=== PATIENT | female | born 1965 | race Caucasian/White ===

== ENCOUNTER 2021-05-23 14:29 | Emergency (ER) | payer OTHER, SELFPAY ==
[2021-05-23 14:30] VITALS: BP 145/87; PULSE 106; RESP 18; TEMP 36.4; O2SAT 98; BMI 27.9
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
== END 2021-05-23 16:00 | disposition home or self-care (01) ==
PROVIDERS: Emergency Provider Emergency Medicine; PCP Family Medicine; Visit Provider Emergency Medicine
DX: Z04.1 Encounter for examination and observation following transport accident (principal); H53.8 Other visual disturbances; Z87.891 Personal history of nicotine dependence; E78.5 Hyperlipidemia, unspecified; V53.5XXD Driver of pick-up truck or van injured in collision with car, pick-up truck or van in traffic accident, subsequent encounter
CPT/HCPCS: 99283

== ENCOUNTER → 2022-10-04 | Outpatient (CLI) | payer OTHER, SELFPAY ==
[2022-10-04 16:07] LABS: Bacteria 0 SEEN /hpf (None Seen); Mucous, Urine 0 SEEN /hpf (<or=2+); Red Blood Cells-Urine 0 SEEN /hpf (0-5); Squamous Epithelial Cells - UA 0 SEEN /hpf (5-10)
[2022-10-04 17:51] LABS: Absolute Neutrophil Count 4.3 X10^3/uL (2.0-7.7); Basophil# 0.05 X10^3/uL; Basophil% 0.6 % (0-1); Eosinophil# 0.22 X10^3/uL; Eosinophils% 2.8 % (0-5); Hematocrit 41.3 % (37-47); Hemoglobin 13.4 g/dL (12.0-15.0); Lymphocyte % 34.6 % (19-41); Mean Corp Hgb Conc 32.4 g/dL (32-36); Mean Corpuscular Hgb 26.7 pg (27.0-32.0); Mean Corpuscular Volume 82.3 fL (81-99); Mean Platelet Vol. 12.2 fl (6.2-12.0); Monocyte# 0.51 X10^3/uL; Monocyte% 6.5 % (0-10); NRBC Flagged by Analyzer 0 % (0-5); Neutrophil # 4.31 X10^3/uL (2.7-7.7); Neutrophil % 55.2 % (47-70); Platelet Count 232 K/mm3 (150-450); RBC Distribution Width SD 38.6 fl (35.1-43.9); Red Blood Count 5.02 M/mm3 (4.2-5.4); White Blood Count 7.8 K/mm3 (4.4-11.0)
[2022-10-04 18:19] LABS: Color, Urine Yellow (Yellow); Glucose, Dipstick Normal (Normal); Ketone-Dipstick Negative (Negative); Leukocyte Esterase-Dipstick 100 /ul (Negative); Nitrite-Dipstick Negative (Negative); Occult Blood-Urine 25 /ul (Negative); Protein-Dipstick Negative (Negative); Urine Bilirubin Dipstick Negative (Negative); Urine Clarity Clear (Clear); Urine Urobilinogen Normal (Normal)
[2022-10-04 18:42] LABS: ALB/GLOB Ratio 0.9 RATIO (0.9-2.4); AST(SGOT) 24 U/L (15-37); Alanine Aminotransfer ALT/SGPT 30 U/L (13-56); Albumin, Serum 3.7 g/dL (3.2-5.0); Alkaline Phosphatase 108 U/L (45-117); Anion Gap 6 (5-15); BUN 16 mg/dL (7-18); BUN/Creat Ratio 16.1 RATIO (10-20); Calcium,Total 9.2 mg/dL (8.5-10.1); Chloride 107 mmol/L (98-107); Cholesterol 265 mg/dL (200); Creatinine, Serum 0.99 mg/dL (0.55-1.02); EST Glomerular Filtration Rate 62 mL/min (>60); Est Glom Filt Rate - Afr Amer 75 mL/min (>60); Globulin 4.2 g/dL (2.2-4.2); Glucose 76 mg/dL (74-106); High Density Lipoprotein 37 mg/dL; Potassium 3.8 mmol/L (3.5-5.1); Protein, Total 7.9 g/dL (6.4-8.2); Sodium Level 139 mmol/L (136-145); Thyroid Stim Hormone (TSH) 1.85 uIU/mL (0.358-3.74); Triglycerides 185 mg/dL; Very Low Density Lipoprotein 37 mg/dL (5-40)
[2022-10-04 18:45] LABS: White Blood Cells 0-5 SEEN /hpf (0-5)
[2022-10-07 08:04] LABS: PTHIN 58.7 pg/mL (18.4-80.1)
== END | disposition home or self-care (01) ==
LOC: MFPLAB 15:57
PROVIDERS: PCP Family Medicine; Visit Provider Family Medicine
DX: E78.5 Hyperlipidemia, unspecified (principal); E89.2 Postprocedural hypoparathyroidism; Z87.891 Personal history of nicotine dependence
CPT/HCPCS: 36415; 80053; 80061; 81001; 83970; 84443; 85025

== ENCOUNTER → 2022-10-25 | Outpatient (CLI) | payer OTHER, SELFPAY ==
--- NOTE | 2022-10-25 07:32 | BI_ITS ---
MAMMOGRAPHY - BILATERAL SCREENING REASON FOR EXAM: Female, 57 years old. Routine annual screening examination. PERTINENT HISTORY: Non-contributory. TECHNIQUE: Digital bilateral breast miranda (3D mammographic acquisition) in the CC and MLO projections. 2-D mediolateral oblique (MLO) and craniocaudad (CC) views of both breasts were obtained. CAD: Full Field Digital Mammography with Computer Added Detection was performed. COMPARISON: Comparison is made with prior preoperative examination dated October 19, 2021. FINDINGS: Breast Composition: The breasts are heterogeneously dense, which may obscure small masses. There are no dominant masses or suspicious calcifications. Stable asymmetry of breast tissue were more breast tissue is seen in the upper outer quadrant of the left breast as compared to the right side. No other significant abnormalities are identified. There has been no significant change since the prior study. BI/SCRN MAMM (CAD)W/MIRANDA BILAT IMPRESSION: Stable bilateral screening mammogram. Yearly follow-up mammogram recommended. (A) ASSESSMENT CATEGORY: BIRADS Category 2: Benign. A letter regarding these results will be sent to the patient by the facility within 30 days. Approximately 10% of breast cancers are not detected by mammography. A normal mammogram should not delay biopsy of a clinically suspicious abnormality. [id number] Electronically Signed: Gualberto Chin MD at 9:51 EDT ,
--- NOTE | 2022-10-25 07:59 | CT_ITS ---
HISTORY: history of tobacco abuse. EX-SMOKER 5 YEARS. 1PPS X YEARS. TECHNIQUE: Helically acquired images were obtained of the chest without contrast. A radiation dose optimization technique was used for this scan. 881 images. COMPARISON: None. FINDINGS: LARGE AIRWAYS: Patent. LUNGS: Mild emphysema and biapical scarring. 2 to 3 mm pleural-based right upper and middle lobe nodules. Cluster of right lower lobe nodules along the major fissure measuring up to 9 mm. 2 mm left lower lobe pulmonary nodule. PLEURA: No pneumothorax or significant pleural effusion. HEART/PERICARDIUM: Heart within normal limits in size with mild coronary artery calcification. No pericardial effusion. VESSELS: Thoracic aorta nondilated. Mild atherosclerosis. MEDIASTINUM/MARIA FERNANDA: No pathologically enlarged adenopathy. UPPER ABDOMEN: Unremarkable. BONES: Intact. CT/Low Dose CT Lung Screening IMPRESSION: Mild emphysema with cluster of pulmonary nodules in the right lower lobe measuring up to 9 mm, which may be inflammatory. Lungs-RADS category 4A: Recommend 3 month follow-up with low dose CT. PET-CT may also be used. Electronically Signed: Elaine Gayle MD at 8:18 EDT ,
== END | disposition home or self-care (01) ==
LOC: OPBI 07:30
PROVIDERS: PCP Family Medicine; Referring Provider Family Medicine; Visit Provider Family Medicine
DX: Z12.31 Encounter for screening mammogram for malignant neoplasm of breast (principal); Z87.891 Personal history of nicotine dependence; Z12.2 Encounter for screening for malignant neoplasm of respiratory organs
CPT/HCPCS: 71271; 77063; 77067

== ENCOUNTER → 2022-11-12 | Outpatient (CLI) | payer OTHER, SELFPAY ==
--- NOTE | 2022-11-12 09:00 | PET_ITS ---
EXAMINATION: FDG PET-CT INDICATIONS: A 57-year-old female with history of pulmonary nodularity. COMPARISON EXAMINATION: None available INDEX LESION SIZE SUV INTERPRETATION Right lower anterolateral lung zone, right middle lobe 1.7 (max) Quantitative criteria for viable neoplasm are not fulfilled, sequential radiologic investigation recommended Right upper abdomen, taylor-hepatis 14.2-mm 2.7 May be further investigated with CT of the abdomen with oral and intravenous contrast to confirm the presence of soft tissue mass formation TECHNIQUE: Following the intravenous administration of 13.32 mCi of F-18 deoxyglucose via the left hand, multiplanar image acquisitions of the neck, chest, abdomen and pelvis to level of mid thigh, obtained at one hour post radiopharmaceutical administration contemporaneously interpreted with the current CT of the neck, chest, abdomen and pelvis, to level of mid thigh, dated 11/12/22 via coregistration reveals: BLOOD GLUCOSE LEVEL:?? 108 mg/dl?HEIGHT:?70 inches?WEIGHT: 196 lbs. FINDINGS: Head/Neck: There is no evidence of abnormal increased glucose metabolism in the pharyngeal mucosal space, parapharyngeal space, bilateral-lateral and anterior neck, hypopharynx and distribution of the laryngeal structures. The visualized portion of the cerebral cortical-subcortical structures demonstrate symmetric and preserved glucose metabolism. There is visualized uptake noted in the bilateral supraclavicular regions without evidence of an anatomic correlate most consistent with visualization of brown adipose tissue. (Luigi et al, Journal of Nuclear Medicine 29:1393, 2002). CHEST: Mild increased radiopharmaceutical concentration is defined in the right lower anterolateral lung zone, presumably lateral segment of the right middle lobe. The calculated maximal standard uptake value is 1.7. Quantitative criteria for viable neoplasm are not fulfilled. Pertinent chest CT findings are as follows. Bilateral axillary soft tissue densities and mediastinal soft tissue reveals no evidence of increased tracer uptake. There is atherosclerotic calcification defined in the thoracic aorta without evidence of dilatation-aneurysm formation. Coronary arterial calcification is observed. There are no additional parenchymal densities-nodules defined in the right and left hemithorax demonstrating quantitatively significant increased FDG uptake. Abdomen/Pelvis: Facilitated FDG uptake is noted in the right upper abdomen in the region of the taylor-hepatis generating a calculated maximal standard uptake value of 2.7. The maximal axial diameter of the metabolic abnormality is 14.2-mm. Normal physiologic distribution of the radiopharmaceutical is apparent in the hepatic (3.8) and splenic parenchyma, both renal units, bladder and visualized intestinal tract. Pertinent abdomen and pelvis CT findings are as follows. There is atherosclerotic calcification defined in the abdominal aorta without evidence of dilatation-aneurysm formation. Pelvic arterial calcification is observed. Colonic diverticulosis is noted without evidence of diverticulitis. The uterus appears surgically absent. Right and left inguinal soft tissue densities with fatty hilus are ametabolic. Skeletal: Degenerative changes are noted in the cervical, thoracic and lumbar spine without evidence of increased radiopharmaceutical concentration. PET/PET/CT Tumor Base -Thigh Init IMPRESSION: 1. The increase in radiopharmaceutical concentration defined in the right lower anterolateral lung field does not fulfill quantitative criteria for viable neoplasm. (Sage et al, Annals of Internal Medicine, 138:724, 2003). 2. Metabolic and/or anatomic stability may be ensured in the right lower anteromedial lung with repeat FDG PET-CT and/or CT of the thorax in 3-6 months if clinically indicated. (Xiu, Journal of Nuclear Medicine 45:88, P2004 Atul, Seminars in Thoracic and Cardiovascular Surgery 14:292, 2002). 3. Facilitated uptake noted in the right upper abdomen in the region of the taylor-hepatis may be further investigated with CT of the abdomen with oral and intravenous contrast to confirm the presence of soft tissue mass formation. Electronic Signature Srini Cho D.O. Accurate Quantification of SUVs for this report are calculated using the exclusive [employer], ([place]. Patent No. [phone] [id number] [phone] [phone] patent [id number] [phone] ). Standardization and correction of the FDG SUV metric exclusively available with [employer] intellectual property, allow for vendor non-specific objective quantitative sequential FDG PET-CT comparison and otherwise unobtainable optimization of the sensitivity and specificity of the examination. [email or web address] Electronically Signed: Srini Cho, at 23:26 EDT ,
== END | disposition home or self-care (01) ==
LOC: ONC 08:52
PROVIDERS: PCP Family Medicine; Referring Provider Family Medicine; Visit Provider Family Medicine
DX: R91.8 Other nonspecific abnormal finding of lung field (principal)
CPT/HCPCS: 78815; A9552

== ENCOUNTER → 2022-12-12 | Outpatient (CLI) | payer OTHER, SELFPAY ==
--- NOTE | 2022-12-12 07:32 | CT_ITS ---
STUDY: CT ABDOMEN AND PELVIS WITH CONTRAST REASON FOR EXAM: Female, 57 years old. Liver mass RADIATION DOSAGE (If Supplied By Facility): CTDIvol = ( 12.49 ) mGy, DLP = ( 1135.33 ) mGycm TECHNIQUE: Transaxial images were obtained from the dome of the diaphragm to the symphysis pubis without oral contrast. 100 CC ISOVUE 300 was administered. Sagittal and coronal images were reconstructed. Individualized dose optimization techniques were used for this CT. COMPARISON: None. FINDINGS: There is an 8 mm slightly irregular nodule in the anterior aspect of the right lower lobe. The visualized portions of the heart are within normal limits. Normal liver. There is soft tissue fullness in the region of the taylor hepatis. This may represent adenopathy or possible mass lesion in the first portion of the duodenum. This may also be related to enlargement of the head of the pancreas. Normal gallbladder and extrahepatic biliary system. Normal spleen. Normal pancreas. Normal bilateral adrenal glands. Normal right kidney. Normal left kidney. Normal visualized stomach. Normal small intestine. There are multiple colonic diverticula consistent with diverticulosis. The appendix is visualized and appears normal. There is scattered atherosclerotic calcification of the abdominal aorta, without a demonstrated aneurysm. Normal inferior vena cava. Normal retroperitoneum. Normal urinary bladder. There is absence of the uterus consistent with a prior hysterectomy. Normal abdominal wall. Normal osseous structures. CT/Abdomen/Pelvis WITH Contrast IMPRESSION: Focal soft tissue prominence in the taylor hepatis. Differential diagnosis should include a mass in the head and uncinate process of the pancreas as well as possible adenopathy. Soft tissue density in the distal stomach/proximal duodenum should be ruled out. Electronically Signed: Gualberto Chin MD at 13:57 EDT ,
== END | disposition home or self-care (01) ==
LOC: CT 07:32
PROVIDERS: PCP Family Medicine; Referring Provider Family Medicine; Visit Provider Family Medicine
DX: R16.0 Hepatomegaly, not elsewhere classified (principal)
CPT/HCPCS: 74177; Q9967; A4216

== ENCOUNTER → 2023-01-02 | Outpatient (CLI) | payer OTHER, SELFPAY ==
[2023-01-02 17:52] LABS: AST(SGOT) 19 U/L (15-37); Alanine Aminotransfer ALT/SGPT 37 U/L (13-56); Albumin, Serum 3.9 g/dL (3.2-5.0); Alkaline Phosphatase 104 U/L (45-117); Bilirubin, Direct 0.08 mg/dL (0.00-0.30); Globulin 4.5 g/dL (2.2-4.2); Protein, Total 8.4 g/dL (6.4-8.2)
[2023-01-07 15:08] LABS: PROEL- A/G Ratio 0.9 (0.7-1.7); PROEL- Albumin 3.6 g/dL (2.9-4.4); PROEL- Alpha-1 Globulin 0.2 g/dL (0.0-0.4); PROEL- Alpha-2 Globulin 0.9 g/dL (0.4-1.0); PROEL- Beta Globulin 1.2 g/dL (0.7-1.3); PROEL- Gamma Globulin 1.6 g/dL (0.4-1.8); PROEL- Globulin, Total 3.8 g/dL (2.2-3.9); PROEL- TOTAL PROTEIN 7.4 g/dL (6.0-8.5)
== END | disposition home or self-care (01) ==
LOC: MFPLAB 15:28
PROVIDERS: PCP Family Medicine; Visit Provider Family Medicine
DX: E88.09 Other disorders of plasma-protein metabolism, not elsewhere classified (principal); R16.0 Hepatomegaly, not elsewhere classified
CPT/HCPCS: 36415; 80076; 84165

== ENCOUNTER → 2023-01-29 | Outpatient (CLI) | payer OTHER, SELFPAY ==
[2023-01-29 17:57] LABS: Absolute Lymphocyte Count 2.85 X10^3/uL (0.83-4.51); Basophil# 0.05 X10^3/uL; Basophil% 0.7 % (0-1); Eosinophil# 0.18 X10^3/uL; Eosinophils% 2.4 % (0-5); Hematocrit 40.4 % (37-47); Hemoglobin 12.6 g/dL (12.0-15.0); Lymphocyte # 2.85 X10^3/ul (0.83-4.51); Lymphocyte % 37.6 % (19-41); Mean Corp Hgb Conc 31.2 g/dL (32-36); Mean Corpuscular Volume 83.5 fL (81-99); Mean Platelet Vol. 12.2 fl (6.2-12.0); Monocyte% 6.6 % (0-10); NRBC Flagged by Analyzer 0 % (0-5); Neutrophil # 3.98 X10^3/uL (2.7-7.7); Neutrophil % 52.4 % (47-70); Platelet Count 229 K/mm3 (150-450); RBC Distribution Width CV 12.7 % (11.6-14.6); RBC Distribution Width SD 38.8 fl (35.1-43.9); Red Blood Count 4.84 M/mm3 (4.2-5.4); White Blood Count 7.6 K/mm3 (4.4-11.0)
[2023-01-29 18:20] LABS: ALB/GLOB Ratio 0.9 RATIO (0.9-2.4); AST(SGOT) 29 U/L (15-37); Alanine Aminotransfer ALT/SGPT 36 U/L (13-56); Albumin, Serum 3.8 g/dL (3.2-5.0); Alkaline Phosphatase 98 U/L (45-117); Anion Gap 8 (5-15); BUN 11 mg/dL (7-18); BUN/Creat Ratio 12.4 RATIO (10-20); Calcium,Total 9.3 mg/dL (8.5-10.1); Chloride 104 mmol/L (98-107); Cholesterol 142 mg/dL (200); Creatinine, Serum 0.89 mg/dL (0.55-1.02); EST Glomerular Filtration Rate 70 mL/min (>60); Est Glom Filt Rate - Afr Amer 85 mL/min (>60); Globulin 4.2 g/dL (2.2-4.2); Glucose 79 mg/dL (74-106); High Density Lipoprotein 42 mg/dL; Potassium 3.7 mmol/L (3.5-5.1); Sodium Level 139 mmol/L (136-145); Triglycerides 105 mg/dL; Very Low Density Lipoprotein 21 mg/dL (5-40)
== END | disposition home or self-care (01) ==
LOC: MFPLAB 16:05
PROVIDERS: PCP Family Medicine; Visit Provider Family Medicine
DX: E78.5 Hyperlipidemia, unspecified (principal)
CPT/HCPCS: 36415; 80053; 80061; 85025

== ENCOUNTER → 2023-03-04 | Outpatient (CLI) | payer OTHER, SELFPAY ==
--- NOTE | 2023-03-04 16:52 | CT_ITS ---
EXAM: CT chest without IV contrast. HISTORY: nodule, history of tobacco abuse TECHNIQUE: No intravenous contrast. A radiation dose optimization technique was used for this scan. COMPARISON: Chest CT October 25, 2022. LIMITATIONS: None. LUNGS: No confluent airspace disease. A cluster of nodules is in the anterior aspect of the right lower lobe adjacent to the major fissure. The largest measures approximately 9 mm. There is no significant change in size of these nodules since the prior exam. Few additional 1 to 3 mm nodules in the right lung are similarly unchanged in size. HEART: Not enlarged. Mild coronary artery calcifications. PLEURA: Normal. AORTA: Normal caliber. MEDIASTINUM: Normal. UPPER ABDOMEN: Partially visualized taylor hepatic lymph nodes are mildly enlarged. BONES/SOFT TISSUES: No acute fracture. OTHER: None. CONCLUSION: No significant change from the prior exam. Nodules in the right lung are without significant change in size. Electronically Signed: Demarcus Washington MD at 5:41 EST , CT/Chest without Contrast IMPRESSION: undefined
[2023-03-06 04:07] LABS: Carbohydrate AG 19-9 25 U/mL (0-35); Carcinoembryonic Antigen 1.5 ng/mL (0.0-4.7)
== END | disposition home or self-care (01) ==
PROVIDERS: Internal Medicine Gastroenterology; PCP Family Medicine; Referring Provider Family Medicine; Visit Provider Family Medicine
DX: R16.0 Hepatomegaly, not elsewhere classified (principal); R91.8 Other nonspecific abnormal finding of lung field; Z72.0 Tobacco use; R91.1 Solitary pulmonary nodule
CPT/HCPCS: 36415; 71250; 82378; 86301

== ENCOUNTER → 2023-05-31 | Outpatient (CLI) | payer OTHER, SELFPAY ==
--- OUTSIDE RECORDS SUMMARY | 2023-05-31 07:19 | XMS RPT_ITS | CCD ---
Author Name Unknown Address [facility] [id number] [place] [address] Organization [facility] Care Team Providers Care Filling Machine Tender Name Role Phone Rj Barrera Primary Care Provider RJ BARRERA Primary Care Unavailable Luis Fernando Webster Attending Unavailable PROVIDER, UNKNOWN Referring Unavailable PROVIDER, UNKNOWN Referring Unavailable RJ BARRERA Primary Care Unavailable Luis Fernando Webster Attending Unavailable GREGORY WYNN Attending Unavailable BELEN KHALIL Attending Unavailable WIL WILKINS Attending Unavailable Allergies Allergy Classification Reported Allergen(s) Allergy Type Date of Onset Reaction(s) Facility (2 sources) Seasonal allergy Propensity to adverse reactions to substance 01-11-2022 [facility] Medications Current Medications Medication Drug Class(es) Dates Sig (Normalized) Sig (Original) acetaminophen 500 mg oral tablet (2 sources) Start: 01-15-2022 take 1 tablet by mouth four times daily as needed for pain acetaminophen (TYLENOL) 500 MG tablet Take 1 tablet by mouth 4 times daily as needed for Pain 120 tablet 0 01/15/2022 Active Completed/Discontinued Medications Medication Drug Class(es) Dates Sig (Normalized) Sig (Original) aprepitant 40 mg oral capsule (1 source) Substance P/Neurokinin-1 Receptor Antagonist Start: 01-15-2022 End: 01-15-2022 aprepitant (EMEND) capsule 40 mg Problems Active Problems Problem Classification Problem Date Documented Da te Episodic/Chronic Asthma (2 sources) Unspecified asthma, uncomplicated; Translations: [Unspecified asthma, uncomplicated] Onset: 01-11-2022 Chronic Cancer of cervix (2 sources) Personal history of malignant neoplasm of cervix uteri; Translations: [Personal history of malignant neoplasm of cervix uteri] Onset: 01-11-2022 Episodic Disorders of lipid metabolism (17 sources) Hypercholesterolemia ; Translations: [Pure hypercholesterolemia , unspecified] Onset: 10-28-2016 10-28-2016 Chronic Genitourinary symptoms and ill-defined conditions (2 sources) Female stress incontinence; Translations: [Stress incontinence (female) (male)] Onset: 12-05-2021 12-05-2021 Chronic Malaise and fatigue (1 source) Fatigue; Translations: [Fatigue, unspecified type] Episodic Other gastrointestinal disorders (1 source) Abdominal mass; Translations: [Intra-abdominal and pelvic swelling, mass and lump, unspecified site] Episodic Other gastrointestinal disorders (2 sources) Intra-abdominal and pelvic swelling, mass and lump, unspecified site; Translations: [Intra-abd and pelvic swelling, mass and lump, unsp site] Onset: 01-11-2022 Episodic Other liver diseases (1 source) Elevated liver enzymes level; Translations: [Abnormal levels of other serum enzymes] Episodic Other nervous system disorders (1 source) Postoperative pain ; Translations: [Other acute postprocedural pain] Episodic Other screening for suspected conditions (not mental disorders or infectious disease) (1 source) Mammographic breast density; Translations: [Inconclusive mammogram] Episodic Unclassified (1 source) Patient encounter status; Translations: [Adult general medical exam] Unclassified (2 sources) Post-op Visit; Translations: [Post-op Visit] Onset: 01-31-2022 Past or Other Problems Problem Classification Problem Date Documented Da te Episodic/Chronic Other circulatory disease (12 sources) Carotid bruit; Translations: [Other specified symptoms and signs involving the circulatory and respiratory systems] Onset: 01-01-2018 01-01-2018 Episodic Other non-traumatic joint disorders (11 sources) Mass of knee; Translations: [Localized swelling, mass and lump, right lower limb] Onset: 01-01-2018 01-01-2018 Episodic Residual codes; unclassified (11 sources) FH: Cardiac disorder; Translations: [Family history of ischemic heart disease and other diseases of the circulatory system] Onset: 09-26-2016 09-26-2016 Episodic Results Test Name Value Interpretation Reference Range Facil ity Vital Signs Date Time Vital Sign Value Performing Clinician Faci lity 01-15-2022 15:45-0400 Body temperature 97.2 [degF] Luis Fernando Webster MD Work Phone: [facility] 01-15-2022 15:45-0400 Diastolic blood pressure 83 mm[Hg] Luis Fernando Webster MD Work Phone: [facility] 01-15-2022 15:45-0400 Heart rate 86 /min Luis Fernando Webster MD Work Phone: [facility] 01-15-2022 15:45-0400 Respiratory rate 18 /min Luis Fernando Webster MD Work Phone: [facility] 01-15-2022 15:45-0400 SaO2% (BldA) [Mass fraction] 99 % Luis Fernando Webster MD Work Phone: [facility] 01-15-2022 15:45-0400 Systolic blood pressure 124 mm[Hg] Luis Fernando Webster MD Work Phone: [facility] 01-15-2022 10:58-0400 Body height 176.5 cm Luis Fernando Webster MD Work Phone: [facility] 01-15-2022 10:58-0400 Body mass index (BMI) [Ratio] 28.38 kg/m2 Luis Fernando Webster MD Work Phone: [facility] 01-15-2022 10:58-0400 Body weight 88.45 kg Luis Fernando Webster MD Work Phone: [facility] 01-11-2022 09:10-0400 Body height 176.5 cm Luis Fernando Webster MD Work Phone: [facility] 01-11-2022 09:10-0400 Body mass index (BMI) [Ratio] 28.09 kg/m2 Luis Fernando Webster MD Work Phone: [facility] 01-11-2022 09:10-0400 Body temperature 97.9 [degF] Luis Fernando Webster MD Work Phone: [facility] 01-11-2022 09:10-0400 Body weight 87.54 kg Luis Fernando Webster MD Work Phone: [facility] 01-11-2022 09:10-0400 Diastolic blood pressure 76 mm[Hg] Luis Fernando Webster MD Work Phone: [facility] 01-11-2022 09:10-0400 Heart rate 76 /min Luis Fernando Webster MD Work Phone: [facility] 01-11-2022 09:10-0400 Respiratory rate 20 /min Luis Fernando Webster MD Work Phone: [facility] 01-11-2022 09:10-0400 SaO2% (BldA) [Mass fraction] 99 % Luis Fernando Webster MD Work Phone: [facility] 01-11-2022 09:10-0400 Systolic blood pressure 104 mm[Hg] Luis Fernando Webster MD Work Phone: [facility] Encounters Encounter Date Encounter Type Care Provider Facility Start: 03-04-2022 End: 03-04-2022 ambulatory GREGORY [facility] Start: 02-20-2022 End: 02-20-2022 ambulatory WIL WILKINS [facility] Start: 01-31-2022 End: 01-31-2022 ambulatory BELEN KHALIL [facility] Start: 01-15-2022 End: 01-15-2022 ambulatory RJ BARRERA [facility] Start: 01-15-2022 End: 01-15-2022 Subsequent hospital visit by physician Luis Fernando Webster MD Work Phone: [facility] General Surgery Procedures Date Procedure Procedure Detail Performing Clinician Start: 03-04-2022 Follow-up visit Follow-up CARROLL Norma BRICEWYNN Start: 11-03-2021 Transferase aspartat e amino ast sgot Rj Barrera DO Work Phone: Start: 09-22-2021 Glucose quantitative blood xcpt reagent strip Rj Barrera DO Work Phone: Start: 09-22-2021 Lipid panel Rj garcia DO Work Phone: Start: 06-09-2021 Lipid panel Marychuy morelos FUNCTIONAL MANAGER - BULK FLUIDS HANDLER Work Phone: Start: 06-09-2021 Transferase aspartat e amino ast sgot Marychuy Ayala FUNCTIONAL MANAGER - BULK FLUIDS HANDLER Work Phone: Start: 01-27-2021 Lipid panel Rj garcia DO Work Phone: Start: 01-27-2021 Transferase aspartat e amino ast sgot Rj Barrera DO Work Phone: Start: 09-18-2020 Lipid panel Rj garcia DO Work Phone: Start: 09-18-2020 Transferase aspartat e amino ast sgot Rj Barrera DO Work Phone: Start: 08-11-2020 Us breast uni real t ellie with image limited Rj Barrera DO Work Phone: Start: 08-11-2020 Diagnostic mammograp hy computer-aided detcj bi Rj Barrera DO Work Phone: Start: 08-11-2020 MG CANCER RISK SURVEY P bernardo Barrera DO Work Phone: Start: 06-24-2020 Assay of thyroid sti mulating hormone tsh Rj Barrera Work Phone: Start: 06-24-2020 Assay of thyroxine total Rj Barrera Work Phone: Start: 06-24-2020 Assay of triiodothyr onine t3 total tt3 Rj Barrera Work Phone: Start: 06-24-2020 Blood count complete auto&auto difrntl wbc Rj Barrera Work Phone: Start: 06-24-2020 Glucose quantitative blood xcpt reagent strip Rj Barrera Work Phone: Start: 06-24-2020 Lipid panel Rj garcia Work Phone: Plan of Treatment Date Care Activity Detail Author Start: 06-24-2025 Lipid panel Lipid screen [facility] Work Phone: Start: 01-29-2024 Screening for malign ant neoplasm of colon [facility] Start: 10-20-2023 Screening for malign ant neoplasm of breast Breast cancer screen [facility] Start: 09-22-2022 Lipid panel Lipids [facility] Start: 09-18-2022 Depression Screen Depression Screen [facility] Start: 08-11-2022 Screening for malign ant neoplasm of breast Breast cancer screen [facility] Start: 06-09-2022 Lipid panel Lipid screen [facility] Start: 05-25-2022 Hepatitis C screening Hepatitis C sc reen [facility] Immunizations Immunization Date Immunization Notes Care Provider Fa rosety 09-08-2021 COVID-19, MODERNA BL UE border, Primary or Immunocompromised, (age 12y+), IM, 100 mcg/0.5mL Rj Fracasso DO Work Phone: [facility] 04-14-2021 COVID-19, Moderna, Primary or Immunocompromised, PF, 100mcg/0.5mL Marychuy Tokie FUNCTIONAL MANAGER - BULK FLUIDS HANDLER Work Phone: [facility] Work Phone: 09-05-2020 COVID-19, Moderna, Primary or Immunocompromised, PF, 100mcg/0.5mL Marychuy Tokie FUNCTIONAL MANAGER - BULK FLUIDS HANDLER Work Phone: [facility] Work Phone: 08-11-2020 COVID-19, Moderna, Primary or Immunocompromised, PF, 100mcg/0.5mL Marychuy Tokie FUNCTIONAL MANAGER - BULK FLUIDS HANDLER Work Phone: [facility] Payers Date Payer Category Payer Unknown [id number] 1965 Unknown [id number] 1965 Unknown [id number] Unknown Social History Date Type Detail Facility Start: 06-22-2020 End: 12-05-2021 Tobacco smoking status [facility] Former smoker [facility] Start: 12-03-1990 End: 08-16-2016 History of tobacco use Current smoker [facility] Work Phone: Start: 12-03-1990 End: 08-16-2016 History of tobacco use Cigarette Smoker [facility] Work Phone: Start: 06-22-2020 End: 01-15-2022 Cigarettes smoked current (pack per day) - Reported [facility] Work Phone: Start: 06-22-2020 End: 12-05-2021 Tobacco use and exposure Never used [facility] Work Phone: Start: 06-22-2020 End: 01-15-2022 Alcohol intake Current drinker of alcohol (finding) [facility] Work Phone: Start: 09-07-2018 History SDOH Alcohol Frequency 2 [email or web address] Phone: Start: 09-07-2018 End: 05-25-2021 History SDOH Alcohol Std Drinks 1 [facility] Work Phone: Start: 09-07-2018 History SDOH Social Connections Phone 5 [facility] Work Phone: Start: 09-07-2018 History SDOH Social Connections [employer] [facility] Work Phone: Start: 09-07-2018 History SDOH Social Connections Living 3 [email or web address] Phone: Start: 02-04-2017 Alcohol Comment rarely [facility] Work Phone: Start: 1965 Sex Assigned At Not on file [facility] Work Phone: Start: 05-25-2021 History SDOH Financial 4 [employer] Work Phone: Start: 01-01-2022 End: 01-15-2022 Exposure to SARS-CoV-2 (event) Not sure [facility] Work Phone: Goals Date Patient Goal Desired Activity /State Clinical Notes 01-11-2022 to 01-15-2022 Danni Galindo RN - 01/15/2022 3:46 PM EDTDischarge InstructionsAttachmentsNatasha Daily RN - 01/11/2022 9:45 AM Manuel Daily RN - 01/11/2022 9:00 AM EDTDischarge Instructions Note Date & Type Note Facility 01-15-2022 History of Presen t illness Narrative Voiding trial started. 300 mL instilled of normal saline. Catheter discontinued. Patient tolerated procedure well. documented in this encounter [facility] Work Phone: 01-15-2022 Hospital Discharg e instructions Nicolle Carolina DO - 01/15/2022 1:17 PM EDT Please follow your post operative care instructions given to you by your Store Stock Associate Oncologist's office at your pre operative visit. Please call the office with questions or concerns and be sure to follow up at your scheduled post operative visit. The following attachments cannot be sent through Care Everywhere.Urethral Sling Surgery: Post-op (Lao)documented in this encounter [facility] Work Phone: 01-11-2022 History of Presen t illness Narrative Anesthesia here to talk with her KARSON IS OK TALKING WITH ANESTHESIA IN [facility]. HER CONCERN IS WITH THE ANESTHESIA AND FEELS OK TALKING TO THEM AT THAT TIME. documented in this encounter [facility] Work Phone: 01-11-2022 [facility] Discharg e instructions Natasha Daily RN - 01/11/2022 9:31 AM EDT You may use the free roller varnisher parking at the main entrance on [address] [place] [address], or the free parking in the [facility] parking deck You may use the parking in the Main deck. Take the level one bridge to the H building and follow the signs for same day surgery. Check in at the desk. You may use the roller varnisher parking located at the main entrance on [address] [facility] and take the H elevator to the first floor for same day surgery. Take a left after exiting the elevator and check in at the desk. TAKE the following medications the morning of your surgery---NONE You may take your prescription pain medication. You may take Tylenol for pain. NO Motrin, ibuprofen or Advil for 24 hours prior to surgery or longer if instructed by your surgeon. NO Aleve or Naprosyn for 3 days prior to surgery or longer if instructed by your surgeon. DO NOT take aspirin or aspirin containing products for 5 days before surgery, or longer if instructed by your surgeon. Follow any instructions given to you by [facility] [place] Shower with an antibacterial soap such as Dial or Safeguard the morning of surgery No makeup, lotion, powder, deodorant or body spays. No hair products. Remove all jewelry and leave it at home. Wear loose comfortable clothing to go home in. You may brush your teeth morning of surgery. Do not wear contacts day of surgery. No marijuana (THC), smoking or alcohol for 24 hours prior to surgery. Please arrange for a responsible adult to drive you home after your surgery and that there is a responsible adult with you for 24 hours post discharge. If you have specific questions, please call your surgeon. You will receive a call the day before your surgery to verify your arrival time and date. You will be asked to arrive at least two hours prior to your scheduled surgery time. Please bring your [facility] Surgical folder and medication list with you day of surgery. We encourage you to write down any questions you may have for the surgeon, anesthesiologist, or other members of the surgical team and bring it with you the day of surgery. Please bring photo ID and insurance information. The following attachments cannot be sent through Care Everywhere.Oophorectomy: Laparoscopic: Pre-op (Lao)Oophorectomy: Laparoscopic: Post-op (Lao)Cystoscopy: Post-op (Lao)Urethral Sling Surgery: Pre-op (Lao)Urethral Sling Surgery: Post-op (Lao)documented in this encounter [facility] Work Phone: documented in this encounter [facility] Work Phone: Evaluation note* Diagnosis Hypercholesterolemia Pure hypercholesterolemia documented in this encounter [facility] Work Phone: Evaluation note* Diagnosis Hypercholesterolemia Pure hypercholesterolemia documented in this encounter [facility] Work Phone: Evaluation note* Diagnosis Hypercholesterolemia Pure hypercholesterolemia documented in this encounter [facility] Work Phone: Evaluation note* Diagnosis Hypercholesterolemia Pure hypercholesterolemia Adult general medical exam Unspecified general medical examination documented in this encounter [facility] Work Phone: Evaluation note* Diagnosis Elevated liver enzymes Nonspecific elevation of levels of transaminase or lactic acid dehydrogenase (LDH) documented in this encounter [facility] Work Phone: Evaluation note* Diagnosis Abdominal mass, unspecified abdominal location documented in this encounter [facility] Work Phone: Evaluation note* Diagnosis Pre-op testing- Primary Preoperative examination, unspecified documented in this encounter [facility] Work Phone: Evaluation note* Diagnosis Post-op pain- Primary Other acute postoperative pain documented in this encounter [facility] Work Phone: Assessments Diagnosis Adult general medical exam Unspecified general medical examination Fatigue, unspecified type Diagnosis Right carotid bruit Other symptoms involving cardiovascular system Advance Directives No Advanced Directives Records FoundDocuments on File Type Date Recorded Patient Mounter Expl anation ACP-Advance Directive 02/07/2017 2:49 PM Latest Code Status on File Code Status Date Activated Date Inactivated Comments Full Code 02/06/2017 8:25 AM 02/06/2017 6:24 PM Documents on File Type Date Recorded Patient Mounter Expl anation ACP-Advance Directive ACP-Advance Directive 02/07/2017 2:49 PM ACP-Power of Wedger Machine Documents on File Type Date Recorded Patient Mounter Expl anation ACP-Advance Directive ACP-Advance Directive 02/07/2017 2:49 PM ACP-Power of Wedger Machine Latest Code Status on File Code Status Date Activated Date Inactivated Comments Full Code 02/06/2017 8:25 AM 02/06/2017 6:24 PM Documents on File Type Date Recorded Patient Mounter Expl anation ACP-Advance Directive ACP-Power of Wedger Machine ACP-Advance Directive 02/07/2017 2:49 PM Documents on File Type Date Recorded Patient Mounter Expl anation ACP-Advance Directive ACP-Power of Wedger Machine ACP-Advance Directive 02/07/2017 2:49 PM Latest Code Status on File Code Status Date Activated Date Inactivated Comments Full Code 01/15/2022 10:55 AM Full Code 02/06/2017 8:25 AM 02/06/2017 6:24 PM Reason for Referral Status Reason Specialty Diagnoses / Procedures Referred By Contact Referred To Contact [facility] Diagnoses Right carotid bruit Procedures VL DUP CAROTID BILATERAL Rj Barrera, DO [address] [place] [address] Status Reason Specialty Diagnoses / Procedures Referre d By Contact Referred To Contact [facility] Diagnoses Breast density Procedures US Breast Limited Left Rj Barrera, DO [address] [place] [address] Summary Purpose Family History No Family History Records FoundNo Family History Records FoundNo Family History Records FoundNo Family History Records Found Additional Source Comments Care Teams (unrecognized sec tion and content) Filling Machine Tender Relationship Specialty Start Date End Date Rj Barrera, DO [address] [place] [address] PCP - General 08/31/14 Filling Machine Tender Relationship Specialty Start Date End Date Rj Barrera DO [address] [place] [address] PCP - General 08/31/14 Filling Machine Tender Relationship Specialty Start Date End Date Rj Barrera DO [address] [place] [address] PCP - General 08/31/14 Filling Machine Tender Relationship Specialty Start Date End Date Rj Barrera DO [address] [place] [address] PCP - General 08/31/14 Filling Machine Tender Relationship Specialty Start Date End Date Rj Barrera, [address] [place] [address] PCP - General 08/31/14 Filling Machine Tender Relationship Specialty Start Date End Date Rj Barrera DO [address] [place] [address] PCP - General 08/31/14 INFORMATION SOURCE (unrecogn ized section and content) DATE CREATED AUTHOR AUTHOR'S ORGANIZ ATION 11/29/2021 [employer] DATE CREATED AUTHOR AUTHOR'S ORGANIZ ATION 01/17/2022 [facility] [employer] DATE CREATED AUTHOR AUTHOR'S ORGANIZ ATION 03/15/2022 [facility] [employer] [facility] Ordered Prescriptions (unrec ognized section and content) Scheduled Active and Recently Administ ered Medications (unrecognized section and content) Continuous Medication Order 01/13/2022 01/14/2022 01/15/2022 lactated ringers infusion IntraVENous, at 50 mL/hr, CONTINUOUS, Starting on Fri01/15/22 at 1115, Upon admission to sameday - please start iv if patient does not have iv access. Use 500ml NS for patients on dialysis., Pre-op (day of surgery) 1114 (New Bag - Prov ider: Marychuy Maravilla, RN) lactated ringers infusion IntraVENous, at 50 mL/hr, CONTINUOUS, Starting on Fri01/15/22 at 1430, PACU only 1438 (New Bag - Prov ider: Danni Galindo, SCAR) PRN Medication Order 01/13/2022 01/14/2022 01/15/2022 0.9 % sodium chloride bolus 500 mL (5.65 mL/kg), IntraVENous, at 1,000 mL/hr, Administer over 0.5 Hours, PRN, Anti-nausea, Starting on Fri01/15/22 at 1410, PACU only 0.9 % sodium chloride infusion IntraVENous, at 5-250 mL/hr, PRN, if patient receiving piggyback infusions and maintenance fluids are not ordered OR KVO fluids to protect IV site / prevent frequent line interruptions/ long duration, Starting on Fri01/15/22 at 1055, For piggyback infusion, administer at same rate as piggyback for a total of 25 mL. Enter 25 mL into dose field and piggyback rate into rate field of order. If piggyback is infusing at a rate less than 100 mL/hr, enter 25 mL into dose field and 100 mL/hr into rate field of order. For KVO fluids, enter rate of 20 mL/hr or less into rate field of order., Pre-op (day of surgery) ALPRAZolam (NIRAVAM) dissolvable tablet 0.25 mg 0.25 mg, Oral, PRN, Starting on Fri01/15/22 at 1055, Until Discontinued, Anxiety, Pre-op (day of surgery) 1111 (Given - Provid er: Marychuy Maravilla RN) diphenhydrAMINE (BENADRYL) injection 12.5 mg 12.5 mg, IntraVENous, ONCE PRN, 1 dose, Starting on Fri01/15/22 at 1410, Until Fri01/16/22 at 1410, Itching, for use [facility] and, PACU only fentaNYL (SUBLIMAZE) injection 25 mcg 25 mcg, IntraVENous, EVERY 5 MIN PRN, 3 doses, Starting on Fri01/15/22 at 1410, Until Discontinued, Pain Moderate (4-6), Phase I and Phase II- Initial therapy for moderate pain (4-6). Restricted to a 90 minute time frame starting when the patient can verbally state their pain score. If after 2 doses the pain score does not decrease by more than one point, then call the provider. If oral meds are utilized, do not return to initial therapy medications. SDS and, PACU only fentaNYL (SUBLIMAZE) injection 50 mcg 50 mcg, IntraVENous, EVERY 5 MIN PRN, 3 doses, Starting on Fri01/15/22 at 1410, Until Discontinued, Pain Severe (7-10), Phase I or Phase II- Initial therapy for severe pain (7-10). Restricted to a 90 minute time frame starting when the patient can verbally state their pain score. If after 2 doses the pain score does not decrease by more than one point, then call the provider. If oral meds are utilized, do not return to initial therapy medications. SDS and, PACU only hydrALAZINE (APRESOLINE) injection 5 mg(Linked Group 1) 5 mg, IntraVENous, EVERY 10 MIN PRN, 2 doses, Starting on Fri01/15/22 at 1410, Until Discontinued, High Blood Pressure, PRN for SBP > 160 for 2 consecutive measurements, and if one of the following conditions is met: 1) If IV labetolol is ineffective. 2) If HR is under 60. 3) If patient has heart block, COPD or asthma. If both labetalol and hydralazine ineffective, notify anesthesiologist. for use [facility] and, PACU only labetalol (NORMODYNE;TRANDATE) injection 5 mg(Linked Group 1) 5 mg, IntraVENous, EVERY 10 MIN PRN, 2 doses, Starting on Fri01/15/22 at 1410, Until Discontinued, High Blood Pressure, PRN for SBP >160 for 2 consecutive measurements, if HR is 60 or greater. If beta bethany is contraindicated (HR less than 60, heart block, COPD or asthma) use hydralazine IV order. for use [facility] and, PACU only lidocaine 1 % injection 1 mL 1 mL, IntraDERmal, ONCE PRN, 1 dose, Starting on Fri01/15/22 at 1055, Until Fri01/16/22 at 1055, IV start, Pre-op (day of surgery) LORazepam (ATIVAN) injection 0.5 mg 0.5 mg, IntraVENous, ONCE PRN, 1 dose, Starting on Fri01/15/22 at 1410, Until Fri01/16/22 at 1410, for anxiety or muscle spasm., PACU only meperidine (DEMEROL) injection 12.5 mg 12.5 mg, IntraVENous, EVERY 5 MIN PRN, 4 doses, Starting on Fri01/15/22 at 1410, Until Discontinued, Shivering, , May give every 5 minutes to max of 50mg. for use [facility] and, PACU only ondansetron (ZOFRAN) injection 4 mg (COMPLETED) 4 mg, IntraVENous, ONCE PRN, 1 dose, Starting on Fri01/15/22 at 1410, Until Fri01/16/22 at 1410, Nausea, Initial antiemetic therapy. For use sameday and, PACU only 1435 (Given - Provid er: Danni Galindo RN) oxyCODONE (ROXICODONE) immediate release tablet 10 mg(Linked Group 2) 10 mg, Oral, PRN, 1 dose, Starting on Fri01/15/22 at 1410, Until Fri01/15/22 at 2359, Pain Severe (7-10), PHASE II, PACU only oxyCODONE (ROXICODONE) immediate release tablet 5 mg(Linked Group 2) 5 mg, Oral, PRN, 1 dose, Starting on Fri01/15/22 at 1410, Until Fri01/15/22 at 2359, Pain Moderate (4-6), PHASE II, PACU only sodium chloride flush 0.9 % injection 5-40 mL 5-40 mL, IntraVENous, PRN, Starting on Fri01/15/22 at 1055, Until Discontinued, Line Care, After every IV line use, For Line Patency: Peripheral IV = 5 mL; Midline or Central Line = 10 mL/lumen. If following IV push medication, administer flush at same rate as the IV push. Flush volume is determined by type of infusion therapy being given. For non-viscous solutions use: Peripheral IV = 5 mL Midline or Central Line = 10 mL/lumen For viscous solutions (i.e. blood components, parenteral nutrition, contrast media, or after obtaining blood sample) use: Peripheral IV = 10 mL Midline or Central Line = 20 mL/lumen, Pre-op (day of surgery) sodium chloride flush 0.9 % injection 5-40 mL 5-40 mL, IntraVENous, PRN, Starting on Fri01/15/22 at 1410, Until Discontinued, Line Care, After every IV line use, For Line Patency: Peripheral IV = 5 mL; Midline or Central Line = 10 mL/lumen. If following IV push medication, administer flush at same rate as the IV push. Flush volume is determined by type of infusion therapy being given. For non-viscous solutions use: Peripheral IV = 5 mL Midline or Central Line = 10 mL/lumen For viscous solutions (i.e. blood components, parenteral nutrition, contrast media, or after obtaining blood sample) use: Peripheral IV = 10 mL Midline or Central Line = 20 mL/lumen, PACU only Linked Groups Order Group 1: labetalol (NORMODYNE;TRANDATE) injection 5 mgJump to med 5 mg, IntraVENous, EVERY 10 MIN PRN, 2 doses, Starting on Fri01/15/22 at 1410, Until Discontinued, High Blood Pressure
PRN for SBP >160 for 2 consecutive measurements, if HR is 60 or greater. If beta bethany is contraindicated (HR less than 60, heart block, COPD or asthma) use hydralazine IV order. for use [employer] and
PACU only Or hydrALAZINE (APRESOLINE) injection 5 mgJump to med 5 mg, IntraVENous, EVERY 10 MIN PRN, 2 doses, Starting on Fri01/15/22 at 1410, Until Discontinued, High Blood Pressure
PRN for SBP > 160 for 2 consecutive measurements, and if one of the following conditions is met: 1) If IV labetolol is ineffective. 2) If HR is under 60. 3) If patient has heart block, COPD or asthma. If both labetalol and hydralazine ineffective, notify anesthesiologist. for use [employer] and
PACU only Group 2: oxyCODONE (ROXICODONE) immediate release tablet 5 mgJump to med 5 mg, Oral, PRN, 1 dose, Starting on Fri01/15/22 at 1410, Until Fri01/15/22 at 2359, Pain Moderate (4-6)
PHASE II
PACU only Or oxyCODONE (ROXICODONE) immediate release tablet 10 mgJump to med 10 mg, Oral, PRN, 1 dose, Starting on Fri01/15/22 at 1410, Until Fri01/15/22 at 2359, Pain Severe (7-10)
PHASE II
PACU only FOR RECORDS PERTAINING TO PATIENTS WHO ARE OR HAVE BEEN ENROLLED IN A CHEMICAL DEPENDENCY/SUBSTANCEABUSE PROGRAM, SOME INFORMATION MAY BE OMITTED. This clinical summary was aggregated from multiple sources. Caution should be exercised in using it in the provision of clinical care. This summary normalizes information from multiple sources, and as a consequence, information in this document may materially change the coding, format and clinical context of patient data. In addition, data may be omitted in some cases. CLINICAL DECISIONS SHOULD BE BASED ON THE PRIMARY CLINICAL RECORDS. [employer] [facility]. provides no warranty or guarantee of the accuracy or completeness of information in this document.
[2023-05-31 07:45] LABS: Absolute Lymphocyte Count 1.86 X10^3/uL (0.83-4.51); Absolute Neutrophil Count 3.1 X10^3/uL (2.0-7.7); Basophil# 0.05 X10^3/uL; Basophil% 0.9 % (0-1); Eosinophil# 0.14 X10^3/uL; Eosinophils% 2.5 % (0-5); Hematocrit 41.2 % (37-47); Hemoglobin 13.6 g/dL (12.0-15.0); Lymphocyte # 1.86 X10^3/ul (0.83-4.51); Lymphocyte % 33.2 % (19-41); Mean Corpuscular Hgb 26.9 pg (27.0-32.0); Mean Corpuscular Volume 81.6 fL (81-99); Mean Platelet Vol. 11.6 fl (6.2-12.0); Monocyte# 0.42 X10^3/uL; Monocyte% 7.5 % (0-10); NRBC Flagged by Analyzer 0 % (0-5); Neutrophil # 3.11 X10^3/uL (2.7-7.7); Neutrophil % 55.5 % (47-70); Platelet Count 214 K/mm3 (150-450); RBC Distribution Width CV 12.7 % (11.6-14.6); RBC Distribution Width SD 37.8 fl (35.1-43.9); Red Blood Count 5.05 M/mm3 (4.2-5.4); White Blood Count 5.6 K/mm3 (4.4-11.0)
[2023-05-31 08:13] LABS: ALB/GLOB Ratio 0.9 RATIO (0.9-2.4); AST(SGOT) 23 U/L (15-37); Alanine Aminotransfer ALT/SGPT 33 U/L (13-56); Albumin, Serum 3.6 g/dL (3.2-5.0); Alkaline Phosphatase 105 U/L (45-117); Anion Gap 4 (5-15); BUN 14 mg/dL (7-18); BUN/Creat Ratio 17.9 RATIO (10-20); Calcium,Total 9.1 mg/dL (8.5-10.1); Chloride 109 mmol/L (98-107); Cholesterol 159 mg/dL (200); Creatinine, Serum 0.78 mg/dL (0.55-1.02); EST Glomerular Filtration Rate 81 mL/min (>60); Est Glom Filt Rate - Afr Amer 98 mL/min (>60); Glucose 104 mg/dL (74-106); High Density Lipoprotein 47 mg/dL; Potassium 3.7 mmol/L (3.5-5.1); Protein, Total 7.6 g/dL (6.4-8.2); Sodium Level 141 mmol/L (136-145); Triglycerides 91 mg/dL; Very Low Density Lipoprotein 18 mg/dL (5-40)
== END | disposition home or self-care (01) ==
LOC: LAB 07:17
PROVIDERS: PCP Family Medicine; Referring Provider Family Medicine; Visit Provider Family Medicine
DX: E78.5 Hyperlipidemia, unspecified (principal)
CPT/HCPCS: 36415; 80053; 80061; 85025

== ENCOUNTER → 2023-09-13 | Outpatient (CLI) | payer OTHER, SELFPAY ==
[2023-09-13 08:19] LABS: Absolute Lymphocyte Count 2.26 X10^3/uL (0.83-4.51); Absolute Neutrophil Count 3.3 X10^3/uL (2.0-7.7); Basophil# 0.06 X10^3/uL; Eosinophil# 0.23 X10^3/uL; Eosinophils% 3.7 % (0-5); Hematocrit 42.5 % (37-47); Hemoglobin 13.8 g/dL (12.0-15.0); Lymphocyte # 2.26 X10^3/ul (0.83-4.51); Mean Corp Hgb Conc 32.5 g/dL (32-36); Mean Corpuscular Hgb 26.4 pg (27.0-32.0); Mean Corpuscular Volume 81.4 fL (81-99); Mean Platelet Vol. 11.6 fl (6.2-12.0); Monocyte# 0.42 X10^3/uL; Monocyte% 6.7 % (0-10); NRBC Flagged by Analyzer 0 % (0-5); Neutrophil # 3.28 X10^3/uL (2.7-7.7); Neutrophil % 52.3 % (47-70); Platelet Count 200 K/mm3 (150-450); RBC Distribution Width CV 12.9 % (11.6-14.6); RBC Distribution Width SD 38.2 fl (35.1-43.9); Red Blood Count 5.22 M/mm3 (4.2-5.4); White Blood Count 6.3 K/mm3 (4.4-11.0)
[2023-09-13 08:51] LABS: ALB/GLOB Ratio 0.9 RATIO (0.9-2.4); AST(SGOT) 20 U/L (15-37); Alanine Aminotransfer ALT/SGPT 27 U/L (13-56); Albumin, Serum 3.6 g/dL (3.2-5.0); Alkaline Phosphatase 109 U/L (45-117); Anion Gap 6 (5-15); BUN 10 mg/dL (7-18); BUN/Creat Ratio 11.9 RATIO (10-20); Calcium,Total 9.3 mg/dL (8.5-10.1); Chloride 108 mmol/L (98-107); Cholesterol 150 mg/dL (200); Creatinine, Serum 0.84 mg/dL (0.55-1.02); EST Glomerular Filtration Rate 75 mL/min (>60); Est Glom Filt Rate - Afr Amer 91 mL/min (>60); Globulin 4.1 g/dL (2.2-4.2); Glucose 100 mg/dL (74-106); High Density Lipoprotein 44 mg/dL; Potassium 3.6 mmol/L (3.5-5.1); Protein, Total 7.7 g/dL (6.4-8.2); Sodium Level 140 mmol/L (136-145); Triglycerides 88 mg/dL; Very Low Density Lipoprotein 18 mg/dL (5-40)
== END | disposition home or self-care (01) ==
LOC: LAB 07:53
PROVIDERS: PCP Family Medicine; Referring Provider Family Medicine; Visit Provider Family Medicine
DX: E78.5 Hyperlipidemia, unspecified (principal)
CPT/HCPCS: 36415; 80053; 80061; 85025

== ENCOUNTER → 2023-11-21 | Outpatient (CLI) | payer OTHER, SELFPAY ==
--- NOTE | 2023-11-21 08:09 | CT_ITS ---
STUDY: CT CHEST WITHOUT CONTRAST REASON FOR EXAM: Female, 58 years old. Lung nodule RADIATION DOSAGE (If Supplied By Facility): CTDIvol = ( 17.42 ) mGy, DLP = ( 657.48 ) mGycm TECHNIQUE: Transaxial imaging was performed without the administration of intravenous contrast material. Multiplanar coronal and sagittal images were reformatted. Individualized dose optimization techniques were used for this CT. COMPARISON: Comparison is made with prior study dated March 04, 2023. FINDINGS: CHEST Stable small benign-appearing bilateral axillary lymph nodes. Stable scarring at the lung apices. Stable appearance of a cluster of small nodules in the anterior aspect of the right lower lobe adjacent to the right major fissure. The largest nodule measures 9 mm. Stable adjacent 1 to 3 mm nodules present. There is no demonstrated pleural abnormality. There are calcifications of the coronary arteries. Normal mediastinum. Normal hilar regions. Normal unenhanced pulmonary arteries. There is atherosclerotic calcification of the aortic arch. There are mild degenerative changes of the thoracic spine. There is no demonstrated abnormality of the visualized upper abdomen. CT/Chest without Contrast IMPRESSION: Stable examination. Repeat examination in 12 months recommended. Electronically Signed: Gualberto Chin MD at 9:15 EDT ,
--- NOTE | 2023-11-21 08:25 | BI_ITS ---
MAMMOGRAPHY - BILATERAL SCREENING REASON FOR EXAM: Female, 58 years old. Routine annual screening examination. PERTINENT HISTORY: Non-contributory. TECHNIQUE: Digital bilateral breast miranda (3D mammographic acquisition) in the CC and MLO projections. 2-D mediolateral oblique (MLO) and craniocaudad (CC) views of both breasts were obtained. CAD: Full Field Digital Mammography with Computer Added Detection was performed. COMPARISON: Comparison is made with prior study October 25, 2022. FINDINGS: Breast Composition: There are scattered areas of fibroglandular density. There is an 8.9 mm x 5.3 mm well-defined nodule in the central lateral aspect of the left breast. Correlation with ultrasound recommended. Stable asymmetry of breast tissue where more breast tissue is seen in the upper-outer quadrant of left breast as compared to the right side. Stable small benign-appearing bilateral axillary lymph nodes. No other significant abnormalities are identified. BI/SCRN MAMM (CAD)W/MIRANDA BILAT IMPRESSION: 8.9 mm x 5.3 mm well-defined nodule in the central lateral aspect of the left breast as described. Correlation with ultrasound recommended. ASSESSMENT CATEGORY: BIRADS Category 0: Incomplete. Need additional imaging evaluation. A letter regarding these results will be sent to the patient by the facility within 30 days. Approximately 10% of breast cancers are not detected by mammography. A normal mammogram should not delay biopsy of a clinically suspicious abnormality. [id number] Electronically Signed: Gualberto Chin MD at 9:38 EDT ,
== END | disposition home or self-care (01) ==
PROVIDERS: PCP Family Medicine; Referring Provider Family Medicine; Visit Provider Family Medicine
DX: Z12.31 Encounter for screening mammogram for malignant neoplasm of breast (principal); R91.8 Other nonspecific abnormal finding of lung field
CPT/HCPCS: 71250; 77063; 77067

== ENCOUNTER → 2023-11-26 | Outpatient (CLI) | payer OTHER, SELFPAY ==
--- NOTE | 2023-11-26 10:58 | US_ITS ---
STUDY: ULTRASOUND BREAST - LEFT REASON FOR EXAM: Female, 58 years old. Abnormal screening mammogram. TECHNIQUE: Axial and longitudinal images of the LEFT breast were performed with a high resolution ultrasound transducer. # OF IMAGES: 18 COMPARISON: Comparison is made with prior study November 21, 2023. FINDINGS: LEFT Breast: The mammographic finding corresponds to a 6 mm x 9 mm x 5 mm well-defined hypoechoic solid nodule at the 3:00 position of the breast at 2 cm from the nipple. Biopsy recommended. US/Breast Limited Unilateral IMPRESSION: The mammographic finding corresponds to a 6 mm x 9 mm x 5 mm well-defined hypoechoic solid nodule at the 3:00 position of the breast at 2 cm from the nipple. Biopsy recommended. ASSESSMENT CATEGORY: BIRADS Category 4: Suspicious - Biopsy Should Be Considered. A letter regarding these results will be sent to the patient by the facility within 30 days. Electronically Signed: Gualberto Chin MD at 13:07 EDT ,
== END | disposition home or self-care (01) ==
LOC: OPUS 10:57
PROVIDERS: PCP Family Medicine; Referring Provider Family Medicine; Visit Provider Family Medicine
DX: R92.8 Other abnormal and inconclusive findings on diagnostic imaging of breast (principal)
CPT/HCPCS: 76642

== ENCOUNTER → 2023-12-05 | Outpatient (CLI) | payer OTHER, SELFPAY ==
--- NOTE | 2023-12-05 | BRBX_PTH ---
PATIENT: KARSON KAUFMAN LOC: [facility] U#:[id number] AGE/SX: 58/F ROOM: RE12/05/[address]: Dr. Nori Maki MD : [id number] BED: DIS: 12/05/2023 SPEC #: [id number] RECD: 12/05/23 13:24 STATUS: RETA ASHLIE #: [id number] TIERRA: 12/05/23 00:[address]: Nori Maki DEPT: SURGICAL PATHOLOGY RECD BY: Tim Ackerman ENTERED: 12/05/23 13:39 SP TYPE: BREAST BX OTHR DR: Dr. Bubba Solorzano MD Tissues: Left breast, NOS Procedures: Surgery Specimen Level IV HEADER OPERATION: Ultrasound guided left breast biopsy PRE-OP DIAGNOSIS: Left breast biopsy, BIRAD 4 TISSUE SUBMITTED: Left breast lesion 3o'clock, 2cm from nipple Ischemic Time: 1 minute Fixation Time: >55 hours MICROSCOPIC DIAGNOSIS Left breast, 3o'clock, 2cm from nipple, ultrasound guided core biopsy: Hyalinized fibroadenoma. Intraductal hyperplasia without atypia. Negative for malignancy. See comment. Waqas 12/08/2023 COMMENT Correlation with clinical, radiologic findings and appropriate follow up are necessary. MICROSCOPIC DESCRIPTION Slides are reviewed. GROSS DESCRIPTION Received in fixative is one container labeled with the patient's name and designated Left breast 3o'clock +2. The specimen consists of multiple elongated fragments of wen-yellow fibroadipose tissue that in aggregate measure 2.5 x 0.5 x 0.1 cm. The specimen is totally submitted in one cassette. 12/05/2023 TC:1 CPT:28455
--- NOTE | 2023-12-05 11:46 | US_ITS ---
INDICATION: Ultrasound of the left breast. EXAMINATION: Ultrasound LEFT IR Breast Biopsy (With Clip and Speciman if done) 1st lesion W/ US Guidance TECHNIQUE: Routine ferreira scale and color-doppler imaging was performed of the left breast. COMPARISON: None. FINDINGS: Sonographic imaging was performed for the surgical breast biopsy of the 6 mm x 7 mm x 4 mm hypoechoic nodule at the 3:00 position breast at 2 cm from the nipple. US/US Breast Biopsy 1st Lesion IMPRESSION: Sonographic guidance for left breast biopsy as described. Electronically Signed: Gualberto Chin MD at 12:06 EDT ,
--- NOTE | 2023-12-05 12:34 | OP.PCM_ITS ---
Report of Operation Date of Procedure: 12/05/23 Pre-Operative Diagnosis: Left breast mass Post-Operative Diagnosis: Same Surgery/Procedure Performed:: Ultrasound-guided left breast mass biopsy Surgeon: Nori Maki Type of Anesthesia: Local Specimen's removed: Left breast mass 3:00 2 cm from nipple Estimated Blood Loss (mL): < 5 cc Description of Procedure: Procedure: Left ultrasound-guided core biopsy Indications: 58 year-old female with hypoechoic nodule at 3:00 in the left breast 2 centimeters from the nipple. Risk benefits were discussed the patient and she elected to proceed with ultrasound guided core biopsy with clip placement Description of procedure: Patient was brought into the ultrasound room in the left breast was marked. A timeout was completed verifying correct patient, procedure, site, specially, prior to beginning procedure. The left breast was prepped and draped in usual sterile fashion and using local anesthesia was obtained with 1% lidocaine with epi. The lesion was located with the ultrasound. Small incision was made with 11 blade to introduced the mammotome through the skin. Under ultrasound guidance multiple core samples were obtained using then 13-gauge mammotome and sent in formalin for pathology. The [employer] dual ultra coil clip was then deployed into the biopsy cavity under ultrasound guid ance and a picture was taken. Upon completion procedure hemostasis was obtained and a Steri-Strip and OpSite were placed. Patient was then taken to the mammography suite for clip verification. The clip was verified. The patient tolerated the procedure well and was discharged from the breast imaging department good condition. Complications none
== END | disposition home or self-care (01) ==
PROVIDERS: PCP Family Medicine; Referring Provider Surgery; Visit Provider Surgery
DX: R92.8 Other abnormal and inconclusive findings on diagnostic imaging of breast (principal)
CPT/HCPCS: 19083; 88305

== ENCOUNTER → 2024-05-22 | Outpatient (CLI) | payer OTHER, SELFPAY ==
[2024-05-22 08:45] LABS: Absolute Lymphocyte Count 2.32 X10^3/uL (0.83-4.51); Absolute Neutrophil Count 3.8 X10^3/uL (2.0-7.7); Basophil# 0.07 X10^3/uL; Eosinophil# 0.24 X10^3/uL; Eosinophils% 3.5 % (0-5); Hematocrit 41.5 % (37-47); Hemoglobin 13.7 g/dL (12.0-15.0); Lymphocyte # 2.32 X10^3/ul (0.83-4.51); Lymphocyte % 33.6 % (19-41); Mean Corpuscular Hgb 27.2 pg (27.0-32.0); Mean Corpuscular Volume 82.3 fL (81-99); Mean Platelet Vol. 11.7 fl (6.2-12.0); Monocyte# 0.48 X10^3/uL; NRBC Flagged by Analyzer 0 % (0-5); Neutrophil # 3.77 X10^3/uL (2.7-7.7); Neutrophil % 54.6 % (47-70); Platelet Count 224 K/mm3 (150-450); RBC Distribution Width SD 38.5 fl (35.1-43.9); Red Blood Count 5.04 M/mm3 (4.2-5.4); White Blood Count 6.9 K/mm3 (4.4-11.0)
[2024-05-22 09:46] LABS: ALB/GLOB Ratio 1.2 RATIO (0.9-2.4); AST(SGOT) 23 U/L (<=31); Alanine Aminotransfer ALT/SGPT 26 U/L (<=34); Albumin, Serum 4.1 g/dL (3.5-5.0); Alkaline Phosphatase 114 U/L (35-104); Anion Gap 11 (5-15); BUN 11 mg/dL (4-19); BUN/Creat Ratio 14.6 RATIO (10-20); Calcium 9.3 mg/dL (7.6-11.0); Carbon Dioxide 24.9 mmol/L (22.0-29.0); Chloride 107 mmol/L (96-108); Cholesterol 148 mg/dL (<=200); Creatinine, Serum 0.72 mg/dL (0.70-1.20); EST Glomerular Filtration Rate 97 (>60); Globulin 3.3 g/dL (2.2-4.2); Glucose 98 mg/dL (70-99); High Density Lipoprotein 51 mg/dL; Low Density Lipoprotein Calc. 84 mg/dL; Protein, Total 7.5 g/dL (5.9-8.4); Sodium Level 142 mmol/L (133-145); Total Bilirubin 0.27 mg/dL (0.00-1.30); Triglycerides 68 mg/dL; Very Low Density Lipoprotein 14 mg/dL (5-40); cholesterol:hdl ratio screen 2.91
== END | disposition home or self-care (01) ==
LOC: LAB 08:12
PROVIDERS: PCP Family Medicine; Referring Provider Family Medicine; Visit Provider Family Medicine
DX: E78.5 Hyperlipidemia, unspecified (principal)
CPT/HCPCS: 36415; 80053; 80061; 85025

== ENCOUNTER → 2024-10-23 | Outpatient (CLI) | payer OTHER, SELFPAY ==
--- OUTSIDE RECORDS SUMMARY | 2024-10-23 07:26 | XMS RPT_ITS | CCD ---
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 Order Info: 0786-1 - CMP Order Info: [id number] - LIPID Performed By: #### L 500.4050, L100.0100, L500.4100 #### [facility] [address] [place], [address] Triglyceride [Mass/Vol] 68 mg/dL Normal [facility] Comment on above: Order Comment: Order Date: 10/17/23 Order Info: 0786- - CMP Order Info: [id number] - LIPID Result Comment: The drugs N-Acetylcysteine and Metamizole may falsely depress this assay. Normal range: <150 mg/dL Borderline High: 150-199 mg/dL High: 200-499 mg/dL Very High: >500 mg/dL Performed By: #### L 500.4050, L100.0100, L500.4100 #### [facility] [address] [place], [address] Lymphocytes Auto (Unsp spec) [#/Vol]Ordered By: Bubba Solorzano on 05-22-2024 Lymphocytes (Bld) [#/Vol] 2.32 10*3/uL 0.83-4.51 [facility] Lymphocytes/100 WBC Auto (Un sp spec)Ordered By: Bubba Solorzano on 05-22-2024 Lymphocytes/100 WBC (Bld) 33.6 % 19-41 [facility] MCV (mean corpuscular volume ) determinationOrdered By: Bubba Solorzano on 05-22-2024 MCV (RBC) [Entitic vol] 82.3 fL 81-99 [facility] Mean corpuscular hemoglobin (MCH) determinationOrdered By: Bubba Solorzano on 05-22-2024 MCH (RBC) [Entitic mass] 27.2 pg 27.0-32.0 [facility] Mean corpuscular hemoglobin concentration (MCHC) determinationOrdered By: Bubba Solorzano on 05-22-2024 MCHC (RBC) [Mass/Vol] 33.0 g/dL 32-36 [facility] Mean platelet volume determi nationOrdered By: Bubba Solorzano on 05-22-2024 Platelet mean volume (Bld) [Entitic vol] 11.7 fL 6.2-12.0 [facility] Monocyte percentageOrdered B y: Bubba Solorzano on 05-22-2024 Monocytes/100 WBC (Bld) 7.0 % 0-10 [facility] Neutrophil percentageOrdered By: Bubba Solorzano on 05-22-2024 Neutrophils/100 WBC (Bld) 54.6 % 47-70 [facility] Nucleated red blood cell per centageOrdered By: Bubba Solorzano on 03-01-2025 Nucleated RBC/100 WBC (Bld) [Ratio] 0 % 0-5 [facility] Platelet countOrdered By: Simran Solorzano on 05-22-2024 Platelets (Bld) [#/Vol] 224 10*3/uL 150-450 [facility] RBC Auto (Bld) [#/Vol]Ordere d By: Bubba Solorzano on 05-22-2024 RBC (Bld) [#/Vol] 5.04 10*6/uL 4.2-5.4 [facility] Screening total cholesterol/ high density lipoprotein (HDL) cholesterol ratioOrdered By: Bubba Solorzano on 05-22-2024 Cholesterol.total/Choles terol in HDL [Mass ratio] 2.91 {ratio} [facility] Serum creatinine measurement (mass/volume)Ordered By: Bubba Solorzano on 05-22-2024 Creatinine [Mass/Vol] 0.72 mg/dL 0.70-1.20 [facility] Serum globulin measurementOr dered By: Bubba Solorzano on 05-22-2024 Globulin (S) [Mass/Vol] 3.3 g/dL 2.2-4.2 [facility] Serum glucose measurement (m ass/volume)Ordered By: Bubba Solorzano on 05-22-2024 Glucose [Mass/Vol] 98 mg/dL 70-99 [facility] Serum or plasma alanine zhou otransferase (ALT) measurementOrdered By: Bubba Solorzano on 05-22-2024 ALT [Catalytic activity/Vol] 26 U/L <35 [facility] Serum or plasma albumin beatrice urement (mass/volume)Ordered By: Bubba Solorzano on 05-22-2024 Albumin [Mass/Vol] 4.1 g/dL 3.5-5.0 [facility] Serum or plasma albumin/glob ulin mass ratioOrdered By: Bubba Solorzano on 05-22-2024 Albumin/Globulin [Mass ratio] 1.2 {ratio} 0.9-2.4 [facility] Serum or plasma alkaline nunu sphatase measurementOrdered By: Bubba Solorzano on 05-22-2024 ALP [Catalytic activity/Vol] 114 U/L High 35-104 [facility] Serum or plasma anion gap de termination (moles/volume)Ordered By: Bubba Solorzano on 05-22-2024 Anion gap [Moles/Vol] 11 mmol/L 5-15 [facility] Serum or plasma calcium beatrice urement (mass/volume)Ordered By: Bubba Solorzano on 05-22-2024 Calcium [Mass/Vol] 9.3 mg/dL 7.6-11.0 [facility] Serum or plasma cholesterol in HDL measurement (mass/volume)Ordered By: Bubba Solorzano on 05-22-2024 Cholesterol in HDL [Mass/Vol] 51 mg/dL >40 [facility] Comment on above: National Cholesterol Education Program (NCEP) guidelines:<40 mg/dL: Low HDL-cholesterol (major risk factor for CHD)>= 60 mg/dL: High HDL-cholesterol (negative risk factor for CHD)HDL-cholesterol is affected by a number of factors, e.g. smoking, exercise, hormones, sex and age. Serum or plasma cholesterol measurement (mass/volume)Ordered By: Bubba Solorzano on 05-22-2024 Cholesterol [Mass/Vol] 148 mg/dL <201 [facility] Comment on above: Cholesterol level, D esirable <200 mg/dLBorderline high cholesterol 200-239 mg/dLHigh cholesterol >=240 mg/dLRecommendations of the NCEP Adult Treatment Panel for the following risk-cutoff thresholds for the [place] population. Serum or plasma potassium me asurementOrdered By: Bubba Solorzano on 05-22-2024 Potassium [Moles/Vol] 4.0 mmol/L 3.3-5.1 [facility] Serum or plasma sodium measu rement (moles/volume)Ordered By: Bubba Solorzano on 05-22-2024 Sodium [Moles/Vol] 142 mmol/L 133-145 [facility] Serum or plasma urea nitroge n measurement (mass/volume)Ordered By: Bubba Solorzano on 05-22-2024 Urea nitrogen [Mass/Vol] 11 mg/dL 4-19 [facility] Total proteinOrdered By: Antonino Solorzano on 05-22-2024 Protein [Mass/Vol] 7.5 g/dL 5.9-8.4 [facility] Triglycerides measurementOrd ered By: Bubba Solorzano on 05-22-2024 Triglyceride [Mass/Vol] 68 mg/dL <199 [facility] Comment on above: The drugs N-Acetylcy steine and Metamizole may falsely depress this assay. Normal range: <150 mg/dLBorderline High: 150-199 mg/dLHigh: 200-499 mg/dLVery High: >500 mg/dL White blood cell (WBC) count Ordered By: Bubba Solorzano on 05-22-2024 WBC (Bld) [#/Vol] 6.9 10*3/uL 4.4-11.0 [facility] Operative Reporton 4 Operative Report [facility] Medical Records Department [address] [place] [address] Operative Report 12/05/23 1234 MR#: [id number] Acct: [id number] Name: JOHANNA NOBLE Rep #: [id number] : 1965 58 From: Nori Maki MD PCP: Dr. Bubba Solorzano MD Status:REG CLI Location: OPUS Report of Operation Date of Procedure: 12/05/23 Pre-Operative Diagnosis: Left breast mass Post-Operative Diagnosis: Same Surgery/Procedure Performed:: Ultrasound-guided left breast mass biopsy Surgeon: Nori Maki Type of Anesthesia: Local Specimen's removed: Left breast mass 3:00 2 cm from nipple Estimated Blood Loss (mL): < 5 cc Description of Procedure: Procedure: Left ultrasound-guided core biopsy Indications: 58 year-old female with hypoechoic nodule at 3:00 in the left breast 2 centimeters from the nipple. Risk benefits were discussed the patient and she elected to proceed with ultrasound guided core biopsy with clip placement Description of procedure: Patient was brought into the ultrasound room in the left breast was marked. A timeout was completed verifying correct patient, procedure, site, specially, prior to beginning procedure. The left breast was prepped and draped in usual sterile fashion and using local anesthesia was obtained with 1% lidocaine with epi. The lesion was located with the ultrasound. Small incision was made with 11 blade to introduced the mammotome through the skin. Under ultrasound guidance multiple core samples were obtained using then 13-gauge mammotome and sent in formalin for pathology. The TRAN.SL dual ultra coil clip was then deployed into the biopsy cavity under ultrasound guidance and a picture was taken. Upon completion procedure hemostasis was obtained and a Steri-Strip and OpSite were placed. Patient was then taken to the mammography suite for clip verification. The clip was verified. The patient tolerated the procedure well and was discharged from the breast imaging department good condition. Complications none 12/05/23 1240 Cosigner Signature (if applicable): CC: Dr. Bubba Solorzano MD; Dr. Nori Maki MD Signed Normal [facility] Surgery Specimen Level Soheila 12-05-2023 Surgery Specimen Level IV Patient Age/Sex Location Account Attending Physician JOHANNA NOBLE 58/F OPUS [id number] Dr. Nori Maki MD Specimen: [id number] Received: 12/05/23 Status: RETA [place] Num: [id number] Spec Type: BREAST BX Subm Dr: Dr. Nori Maki MD HEADER OPERATION: Ultrasound guided left breast biopsy PRE-OP DIAGNOSIS: Left breast biopsy, BIRAD 4 TISSUE SUBMITTED: Left breast lesion 3o'clock, 2cm from nipple Ischemic Time: 1 minute Fixation Time: >55 hours MICROSCOPIC DIAGNOSIS Left breast, 3o'clock, 2cm from nipple, ultrasound guided core biopsy: Hyalinized fibroadenoma. Intraductal hyperplasia without atypia. Negative for malignancy. See comment. KARL/ 12/08/2023 COMMENT Correlation with clinical, radiologic findings and appropriate follow up are necessary. MICROSCOPIC DESCRIPTION Slides are reviewed. GROSS DESCRIPTION Received in fixative is one container labeled with the patient's name and designated Left breast 3o'clock +2. The specimen consists of multiple elongated fragments of wen-yellow fibroadipose tissue that in aggregate measure 2.5 x 0.5 x 0.1 cm. The specimen is totally submitted in one cassette. 12/05/2023 TC:1 CPT:07353 Patient Age/Sex Location Account Attending Physician JOHANNA NOBLE 58/F OP [id number] Dr. Nori Maki MD Signed (signature on file) Dr. Chaim Toribio MD 12/08/23 1026 Normal [facility] Comment on above: Performed By: #### P SUIV #### [facility] [address] [place] [address], [address] US Breast Biopsy 1st Lesiono n 12-05-2023 US Breast Biopsy 1st Lesion [facility] Imaging Services [address] [place] [id number] US Breast Biopsy 1st Lesion MR#: [id number] Acct: [id number] Name: JOHANNA NOBLE Rep #: [id number] : 1965 F 58 From: Gualberto brunner MD PCP: Dr. Bubba Solorzano MD Status: [facility] Study: US Breast Biopsy 1st Lesion Date of Exam: 11/22 06/14 Exam# [id number] Ordering Dr: Clementina Arnold [id number] INDICATION: Ultrasound of the left breast. EXAMINATION: Ultrasound LEFT IR Breast Biopsy (With Clip and Speciman if done) 1st lesion W/ US Guidance TECHNIQUE: Routine ferreira scale and color-doppler imaging was performed of the left breast. COMPARISON: None. FINDINGS: Sonographic imaging was performed for the surgical breast biopsy of the 6 mm x 7 mm x 4 mm hypoechoic nodule at the 3:00 position breast at 2 cm from the nipple. US/US Breast Biopsy 1st Lesion IMPRESSION: Sonographic guidance for left breast biopsy as described. Electronically Signed: Gualberto Chin MD at 12:06 EDT Reading Location ID and State: [facility] / [place] , Service support , CC: BEAR Arnold; Dr. Bubba Solorzano MD Film Producer: Signed Normal [facility] Surgery Visit Reporton 11-30 Surgery Visit Report [facility] [address] [place] [address]. [address] [place] [address] OFFICE VISIT Date of Service: 12/01/23 MR#: [id number] Acct: [id number] Name: JOHANNA NOBLE Rep #: [id number] : 1965 Provider: Dr. Nori sharif MD Age/Sex: 58/F Location: [facility] Status: Signed Intake Vital Signs 05/23/21 14:30 12/01/23 14:02 Height 5 ft 10 in 5 ft 10 in Weight: 198 lb 8 oz BMI 28.5 BP 146/79 H Blood Pressure Location Rt brachial Position Sitting Respiration 17 Pulse 88 Pulse Source Monitor Temp 96.5 F L Temp Source Temporal Pulse Oximetry (%) 99 Oxygen Delivery Method room air Intake Visit Reasons: BIRADS 4 Chief Complaint: birads 4 Is patient in pain?: No Allergies No Known Allergies Allergy (Verified 12/01/23 14:03) Medications ???Medication ???Instructions ???Recorded ???Confirmed ???Type cetirizine 10 mg capsule (Zyrtec) 10 mg PO QDAY PRN 12/01/23 12/01/23 History rosuvastatin 40 mg tablet 40 mg PO QDAY 12/01/23 12/01/23 History PFSH Medical History (Updated 12/01/23 @ 14:02 by Melania Longoria) delivery delivered GERD (gastroesophageal reflux disease) Surgical History (Updated 12/01/23 @ 14:02 by Melania Longoria) H/O parathyroidectomy H/O bilateral oophorectomy H/O: hysterectomy Social History (Updated 12/01/23 @ 14:02 by Melania Longoria) Smoking Status: Former smoker alcohol intake: current alcohol intake frequency: holidays/special occasions only HPI HPI HPI: 58-year-old female presents due to abnormal mammogram and ultrasound. Patient's mammogram showed a nodule in the left outer quadrant and ultrasound showed a 6 mm x 9 mm 5 mm well-defined hypoechoic solid nodule at 3:00 2 cm from the nipple given a BI-RADS 4. Upon looking at patient's previous mammogram in 2022 this area looks similar with my read. Patient denies any breast pain nipple discharge or trauma to her breast. Age at menses 15, age of of first child 19, no family history of breast cancer, no previous breast biopsies. ROS General General: No weight change, appetite, fatigue, colon cancer, breast cancer or weakness HEENT HEENT: No difficulty swallowing, eye injury, eye surgery, swollen glands or hoarseness Endo Endocrine: No thyroid disease, diabetes mellitus, thyroid cancer, Hair loss, heat intolerance or cold intolerance Skin Skin: No rash or changing moles Breast Breast: Yes abnormal mammogram and abnormal US; No left breast lump, right breast lump, nipple discharge, breast pain or breast enlargement Musc Musculoskeletal: Yes back problems and arthritis; No rheumatoid arthritis, gout or joint pain Cardio Cardiovascular: No murmur, pacemaker, heart disease, atrial fibrillation, high blood pressure, heart attack, heart stent, palpitations, shortness of breat with exertion or chest pain Psych Psychiatric: No depression, anxiety or hearing voices Resp Respiratory: No shortness of breath, No sleep apnea, No cough, No COPD, No asthma, No emphysema and No wheezing Gastro Gastrointestinal: No abdominal pain, Yes nausea or vomiting, No diarrhea, No constipation, No blood in stool, Yes acid reflux, Yes hemorrhoids, No ulcers, No gallbladder problem and No black,tarry stools Bandar Hematologic: No blood thinners, No blood disorders, No bleeding, No anemia and No blood clots Neuro Neurologic: No system reviewed and no additional complaints, except as documented, No as per HPI, No abnormal gait, No abnormal hearing, No abnormal movements, No abnormal speech, No behavioral changes, No burning sensations, No confusion, No convulsions, No disequilibrium, No dizziness, No localized weakness, No frequent falls, No headache(s), No lack of coordination, No loss of vision, No memory loss, No numbness, No other visual disturbances, No radicular pain, No restless legs, No sensory deficit, No syncope, No tingling, No tremor(s), No weakness and No other Exam Const General: cooperative, healthy appearing and no acute distress [facility] Head: normal to inspection Chest Other: Breast inspection: Symmetric bilaterally Right breast: Fibroglandular tissue, no masses on exam, no nipple discharge or pain, no change in overlying skin Left breast: Fibroglandular tissue, no masses on exam, no nipple discharge or pain, no change in overlying skin No axillary or supraclavicular adenopathy bilaterally Resp Effort Inspection: normal respiratory effort Cardio Rate: regular rate GI Inspection: non-distended Palpation: soft Skin General: no rashes or lesions noted Neuro General: patient oriented x3 Extrem General: no clubbing, cyanosis or edema Psych Affect: normal affect Assessment and Plan Assessment and Plan (1) Abnormal ultrasound of breast: Status: Acut (more content not included)... Normal [facility] Breast Limited Unilateralon 11-26-2023 Breast Limited Unilateral [facility] Imaging Services [address] [place] [address] Breast Limited Unilateral MR#: [id number] Acct: [id number] Name: JOHANNA NOBLE Rep #: [id number] : 1965 F 58 From: Gualberto brunner MD PCP: Dr. Bubba Solorzano MD Status: REG CLI Study: Breast Limited Unilateral Date of Exam: Exam# [id number] Ordering Dr: Bubba Solorzano MD [id number] STUDY: ULTRASOUND BREAST - LEFT REASON FOR EXAM: Female, 58 years old. Abnormal screening mammogram. TECHNIQUE: Axial and longitudinal images of the LEFT breast were performed with a high resolution ultrasound transducer. # OF IMAGES: 18 COMPARISON: Comparison is made with prior study November 21, 2023. FINDINGS: LEFT Breast: The mammographic finding corresponds to a 6 mm x 9 mm x 5 mm well-defined hypoechoic solid nodule at the 3:00 position of the breast at 2 cm from the nipple. Biopsy recommended. US/Breast Limited Unilateral IMPRESSION: The mammographic finding corresponds to a 6 mm x 9 mm x 5 mm well-defined hypoechoic solid nodule at the 3:00 position of the breast at 2 cm from the nipple. Biopsy recommended. ASSESSMENT CATEGORY: BIRADS Category 4: Suspicious - Biopsy Should Be Considered. A letter regarding these results will be sent to the patient by the facility within 30 days. Electronically Signed: Gualberto Chin MD at 13:07 EDT Reading Location ID and State: [address] [place] [address] , Service support , CC: Dr. Bubba Solorzano MD Film Producer: Signed Normal [facility] Chest without Contraston Chest without Contrast [facility] Services [address] [place] [id number] Chest without Contrast MR#: [id number] Acct: [id number] Name: JOHANNA NOBLE Rep #: [id number] : 1965 F 58 From: Gualberto brunner MD PCP: Dr. Bubba Solorzano MD Status: [facility] CLI Study: Chest without Contrast Date of Exam: 11/21/23 Exam# [id number] Ordering Dr: Bubba Solorzano MD [id number] STUDY: CT CHEST WITHOUT CONTRAST REASON FOR EXAM: Female, 58 years old. Lung nodule RADIATION DOSAGE (If Supplied By Facility): CTDIvol = ( 17.42 ) mGy, DLP = ( 657.48 ) mGycm TECHNIQUE: Transaxial imaging was performed without the administration of intravenous contrast material. Multiplanar coronal and sagittal images were reformatted. Individualized dose optimization techniques were used for this CT. COMPARISON: Comparison is made with prior study dated March 04, 2023. FINDINGS: CHEST Stable small benign-appearing bilateral axillary lymph nodes. Stable scarring at the lung apices. Stable appearance of a cluster of small nodules in the anterior aspect of the right lower lobe adjacent to the right major fissure. The largest nodule measures 9 mm. Stable adjacent 1 to 3 mm nodules present. There is no demonstrated pleural abnormality. There are calcifications of the coronary arteries. Normal mediastinum. Normal hilar regions. Normal unenhanced pulmonary arteries. There is atherosclerotic calcification of the aortic arch. There are mild degenerative changes of the thoracic spine. There is no demonstrated abnormality of the visualized upper abdomen. CT/Chest without Contrast IMPRESSION: Stable examination. Repeat examination in 12 months recommended. Electronically Signed: Gualberto Chin MD at 9:15 EDT , CC: Dr. Bubba Solorzano MD Film Producer: Signed Normal [facility] SCRN MAMM (CAD)W/MIRANDA BILATo n 11-21-2023 SCRN MAMM (CAD)W/MIRANDA BILAT [facility] Imaging Services [address] [place] [id number] SCRN MAMM (CAD)W/MIRANDA BILAT MR#: [id number] Acct: [id number] Name: JOHANNA NOBLE Rep #: [id number] : 1965 F 58 From: Gualberto brunner MD PCP: Dr. Bubba Solorzano MD Status: [facility] Study: SCRN MAMM (CAD)W/MIRANDA BILAT Date of Exam: 10/24 Exam# [id number] Ordering Dr: Bubba Solorzano MD [id number] MAMMOGRAPHY - BILATERAL SCREENING REASON FOR EXAM: Female, 58 years old. Routine annual screening examination. PERTINENT HISTORY: Non-contributory. TECHNIQUE: Digital bilateral breast miranda (3D mammographic acquisition) in the CC and MLO projections. 2-D mediolateral oblique (MLO) and craniocaudad (CC) views of both breasts were obtained. CAD: Full Field Digital Mammography with Computer Added Detection was performed. COMPARISON: Comparison is made with prior study October 25, 2022. FINDINGS: Breast Composition: There are scattered areas of fibroglandular density. There is an 8.9 mm x 5.3 mm well-defined nodule in the central lateral aspect of the left breast. Correlation with ultrasound recommended. Stable asymmetry of breast tissue where more breast tissue is seen in the upper-outer quadrant of left breast as compared to the right side. Stable small benign-appearing bilateral axillary lymph nodes. No other significant abnormalities are identified. BI/SCRN MAMM (CAD)W/MIRANDA BILAT IMPRESSION: 8.9 mm x 5.3 mm well-defined nodule in the central lateral aspect of the left breast as described. Correlation with ultrasound recommended. ASSESSMENT CATEGORY: BIRADS Category 0: Incomplete. Need additional imaging evaluation. A letter regarding these results will be sent to the patient by the facility within 30 days. Approximately 10% of breast cancers are not detected by mammography. A normal mammogram should not delay biopsy of a clinically suspicious abnormality. [id number] Electronically Signed: Gualberto Chin MD at 9:38 EDT Reading Location ID and State: [address] [place] [address] , Service support , CC: Dr. Bubba Solorzano MD Film Producer: Signed Normal [facility] CBC W/Diff, Automatedon 08-23 Absolute Lymph 2.26 X10 3/uL Normal 0.83-4.51 [facility] Comment on above: Order Comment: Order Date: 06/05/23Order Info: [id number] - CBCD Performed By: #### L 500.4100, L500.4050, L100.0100 ####[facility] [facility] [address] [place], [address] Absolute Neut 3.3 X10 3/uL Normal 2.0-7.7 [facility] Comment on above: Order Comment: Order Date: 06/05/23Order Info: [id number] - CBCD Performed By: #### L 500.4100, L500.4050, L100.0100 ####[facility] [address] [place], [address] Basophils/100 WBC (Bld) 1.0 % Normal 0-1 [facility] Comment on above: Order Comment: Order Date: 06/05/23Order Info: [id number] - CBCD Performed By: #### L 500.4100, L500.4050, L100.0100 ####[facility] [address] [place], [address] Eosinophils/100 WBC (Bld) 3.7 % Normal 0-5 [facility] Comment on above: Order Comment: Order Date: 06/05/23Order Info: [id number] - CBCD Performed By: #### L 500.4100, L500.4050, L100.0100 ####[facility] [address] [place], [address] Erythrocyte distribution width (RBC) [Ratio] 12.9 % Normal 11.6-14.6 [facility] Comment on above: Order Comment: Order Date: 06/05/23Order Info: [id number] - CBCD Performed By: #### L 500.4100, L500.4050, L100.0100 ####[facility] [address] [place], [address] Hematocrit (Bld) [Volume fraction] 42.5 % Normal 37-47 [facility] Comment on above: Order Comment: Order Date: 06/05/23Order Info: [id number] - CBCD Performed By: #### L 500.4100, L500.4050, L100.0100 ####[facility] [address] [place], [address] Hemoglobin (Bld) [Mass/Vol] 13.8 g/dL Normal 12.0-15.0 [facility] Comment on above: Order Comment: Order Date: 06/05/23Order Info: [id number] - CBCD Performed By: #### L 500.4100, L500.4050, L100.0100 ####[facility] [address] [place], [address] IG% 0.300 Normal 0.0-0.9 [facility] Comment on above: Order Comment: Order Date: 06/05/23Order Info: [id number] - CBCD Result Comment: IG% - Immature Granulocytes (promyelocytes, myelocytes and metamyelocytes) > 1% indicates that a LEFT SHIFT is Present. Performed By: #### L 500.4100, L500.4050, L100.0100 ####[facility] [address] [place], [address] Lymphocytes/100 WBC (Bld) 36.0 % Normal 19-41 [facility] Comment on above: Order Comment: Order Date: 06/05/23Order Info: [id number] - CBCD Performed By: #### L 500.4100, L500.4050, L100.0100 ####[facility] [address] [place], [address] MCH (RBC) [Entitic mass] 26.4 pg Low 27.0-32.0 [facility] Comment on above: Order Comment: Order Date: 06/05/23Order Info: [id number] - CBCD Performed By: #### L 500.4100, L500.4050, L100.0100 ####[facility] [address] [place], [address] MCHC (RBC) [Mass/Vol] 32.5 g/dL Normal 32-36 [facility] Comment on above: Order Comment: Order Date: 06/05/23Order Info: [id number]- - CBCD Performed By: #### L 500.4100, L500.4050, L100.0100 ####[facility] [address] [place], [address] MCV (RBC) [Entitic vol] 81.4 fL Normal 81-99 [facility] Comment on above: Order Comment: Order Date: 06/05/23Order Info: [id number] - CBCD Performed By: #### L 500.4100, L500.4050, L100.0100 ####[facility] [address] [place], [address] Monocytes/100 WBC (Bld) 6.7 % Normal 0-10 [facility] Comment on above: Order Comment: Order Date: 06/05/23Order Info: [id number] - CBCD Performed By: #### L 500.4100, L500.4050, L100.0100 ####[facility] [address] [place], [address] Neutrophils/100 WBC (Bld) 52.3 % Normal 47-70 [facility] Comment on above: Order Comment: Order Date: 06/05/23Order Info: [id number] - CBCD Performed By: #### L 500.4100, L500.4050, L100.0100 ####[facility] [address] [place], [address] Nucleated RBC (Bld) [#/Vol] 0 10*3/uL Normal 0-5 [facility] Comment on above: Order Comment: Order Date: 06/05/23Order Info: [id number] - CBCD Performed By: #### L 500.4100, L500.4050, L100.0100 ####[facility] [address] [place], [address] Platelet mean volume (Bld) [Entitic vol] 11.6 fL Normal 6.2-12.0 [facility] Comment on above: Order Comment: Order Date: 06/05/23Order Info: [id number] - CBCD Performed By: #### L 500.4100, L500.4050, L100.0100 ####[facility] [address] [place], [address] Platelets (Bld) [#/Vol] 200 10*3/uL Normal 150-450 [facility] Comment on above: Order Comment: Order Date: 06/05/23Order Info: [id number] - CBCD Performed By: #### L 500.4100, L500.4050, L100.0100 ####[facility] [address] [place], [address] RBC (Bld) [#/Vol] 5.22 10*6/uL Normal 4.2-5.4 [facility] Comment on above: Order Comment: Order Date: 06/05/23Order Info: [id number] - CBCD Performed By: #### L 500.4100, L500.4050, L100.0100 ####[facility] [address] [place], [address] RDW SD 38.2 fl Normal 35.1-43.9 [facility] Comment on above: Order Comment: Order Date: 06/05/23Order Info: [id number] - CBCD Performed By: #### L 500.4100, L500.4050, L100.0100 ####[facility] [address] [place], [address] WBC (Bld) [#/Vol] 6.3 10*3/uL Normal 4.4-11.0 [facility] Comment on above: Order Comment: Order Date: 06/05/23Order Info: [id number] - CBCD Performed By: #### L 500.4100, L500.4050, L100.0100 ####[facility] [address] [place], [address] Comprehensive Metabolic Prof [facility] 09-13-2023 Albumin [Mass/Vol] 3.6 g/dL Normal 3.2-5.0 [facility] Comment on above: Order Comment: Order Date: 06/05/23Order Info: [id number] - CMPOrder Info: [id number] - LIPID Performed By: #### L 500.4100, L500.4050, L100.0100 ####[facility] [address] [place], [address] Albumin/Globulin [Mass ratio] 0.9 {ratio} Normal 0.9-2.4 [facility] Comment on above: Order Comment: Order Date: 06/05/23Order Info: [id number] - CMPOrder Info: [id number] - LIPID Performed By: #### L 500.4100, L500.4050, L100.0100 ####[facility] [address] [place], [address] ALK P 109 U/L Normal 45-117 [facility] Comment on above: Order Comment: Order Date: 06/05/23Order Info: [id number] - CMPOrder Info: [id number] - LIPID Performed By: #### L 500.4100, L500.4050, L100.0100 ####[facility] [address] [place], [address] ALT [Catalytic activity/Vol] 27 U/L Normal 13-56 [facility] Comment on above: Order Comment: Order Date: 06/05/23Order Info: [id number] - CMPOrder Info: [id number] - LIPID Performed By: #### L 500.4100, L500.4050, L100.0100 ####[facility] [address] [place], [address] AST [Catalytic activity/Vol] 20 U/L Normal 15-37 [facility] Comment on above: Order Comment: Order Date: 06/05/23Order Info: [id number] - CMPOrder Info: [id number] - LIPID Performed By: #### L 500.4100, L500.4050, L100.0100 ####[facility] [address] [place], [address] Bilirubin [Mass/Vol] 0.40 mg/dL Normal 0.20-1.00 [facility] Comment on above: Order Comment: Order Date: 06/05/23Order Info: [id number] - CMPOrder Info: [id number] - LIPID Result Comment: For patients on eltrombopag therapy, use of [facility] TBIL is not recommended. Performed By: #### L 500.4100, L500.4050, L100.0100 ####[facility] [address] [place], [address] BUN/CRE 11.9 RATIO Normal 10-20 [facility] Comment on above: Order Comment: Order Date: 06/05/23Order Info: [id number] - CMPOrder Info: [id number] - LIPID Performed By: #### L 500.4100, L500.4050, L100.0100 ####[facility] [address] [place], [address] CA,Total 9.3 mg/dL Normal 8.5-10.1 [facility] Comment on above: Order Comment: Order Date: 06/05/23Order Info: [id number] - CMPOrder Info: [id number] - LIPID Performed By: #### L 500.4100, L500.4050, L100.0100 ####[facility] [address] [place], [address] Chloride [Moles/Vol] 108 mmol/L High 98-107 [facility] Comment on above: Order Comment: Order Date: 06/05/23Order Info: 07- - CMPOrder Info: [id number] - LIPID Performed By: #### L 500.4100, L500.4050, L100.0100 ####[facility] [address] [place], [address] CO2 [Moles/Vol] 26.0 mmol/L Normal 21.0-32.0 [facility] Comment on above: Order Comment: Order Date: 06/05/23Order Info: [id number] - CMPOrder Info: [id number] - LIPID Performed By: #### L 500.4100, L500.4050, L100.0100 ####[facility] [address] [place], [address] Creatinine [Mass/Vol] 0.84 mg/dL Normal 0.55-1.02 [facility] Comment on above: Order Comment: Order Date: 06/05/23Order Info: [id number] - CMPOrder Info: [id number] - LIPID Result Comment: The validity of the calculated GFR GFRAA in patients over 70 years has not been determined. Clinical correlation is essential. Performed By: #### L 500.4100, L500.4050, L100.0100 ####[facility] [address] [place], [address] EST GFR - AA 91 mL/min Normal >60 [facility] Comment on above: Order Comment: Order Date: 06/05/23Order Info: [id number] - CMPOrder Info: [id number] - LIPID Result Comment: Afri can [place]ian GFR Calc Performed By: #### L 500.4100, L500.4050, L100.0100 ####[facility] [address] [place], [address] GAP 6 Normal 5-15 [facility] Comment on above: Order Comment: Order Date: 06/05/23Order Info: 07- - CMPOrder Info: [id number] - LIPID Performed By: #### L 500.4100, L500.4050, L100.0100 ####[facility] [address] [place], [address] GFR/1.73 sq M.predicted among non-blacks MDRD (S/P/Bld) [Vol rate/Area] 75 mL/min/{1.73_m2} Normal >60 [facility] Comment on above: Order Comment: Order Date: 06/05/23Order Info: [id number] - CMPOrder Info: [id number] - LIPID Result Comment: Non- GFR Calc Performed By: #### L 500.4100, L500.4050, L100.0100 ####[facility] [address] [place], [address] Globulin (S) [Mass/Vol] 4.1 g/dL Normal 2.2-4.2 [facility] Comment on above: Order Comment: Order Date: 06/05/23Order Info: [id number] - CMPOrder Info: [id number] - LIPID Performed By: #### L 500.4100, L500.4050, L100.0100 ####[facility] [address] [place], [address] Glucose [Mass/Vol] 100 mg/dL Normal 74-106 [facility] Comment on above: Order Comment: Order Date: 06/05/23Order Info: [id number] - CMPOrder Info: [id number] - LIPID Result Comment: Fast ing Glucose result from 100 to 125 mg/dL suggests IMPAIRED HOMEOSTASIS per A.D.A. criteria. Performed By: #### L 500.4100, L500.4050, L100.0100 ####[facility] [address] [place], [address] Potassium [Moles/Vol] 3.6 mmol/L Normal 3.5-5.1 [facility] Comment on above: Order Comment: Order Date: 06/05/23Order Info: [id number] - CMPOrder Info: [id number] - LIPID Performed By: #### L 500.4100, L500.4050, L100.0100 ####[facility] [address] [place], [address] Sodium [Moles/Vol] 140 mmol/L Normal 136-145 [facility] Comment on above: Order Comment: Order Date: 06/05/23Order Info: [id number] - CMPOrder Info: [id number] - LIPID Performed By: #### L 500.4100, L500.4050, L100.0100 ####[facility] [address] [place], [address] T PROT 7.7 g/dL Normal 6.4-8.2 [facility] Comment on above: Order Comment: Order Date: 06/05/23Order Info: [id number] - CMPOrder Info: [id number] - LIPID Performed By: #### L 500.4100, L500.4050, L100.0100 ####[facility] [address] [place], [address] Urea nitrogen [Mass/Vol] 10 mg/dL Normal 7-18 [facility] Comment on above: Order Comment: Order Date: 06/05/23Order Info: [id number] - CMPOrder Info: [id number] - LIPID Performed By: #### L 500.4100, L500.4050, L100.0100 ####[facility] [address] [place], [address] Lipid Profileon 09-13-2023 Cholesterol [Mass/Vol] 150 mg/dL Normal 200 [facility] Comment on above: Order Comment: Order Date: 06/05/23Order Info: [id number] - CMPOrder Info: [id number] - LIPID Result Comment: <200 mg/dL Desirable 200-240 mg/dL Borderline >240 mg/dL High Risk Performed By: #### L 500.4100, L500.4050, L100.0100 ####[facility] [address] [place], [address] Cholesterol in HDL [Mass/Vol] 44 mg/dL Normal [facility] Comment on above: Order Comment: Order Date: 06/05/23Order Info: [id number] - CMPOrder Info: [id number] - LIPID Result Comment: The drugs N-Acetylcysteine and Metamizole may falsely depress this assay. Reference Range HDL <40 mg/dL Low HDL Cholesterol HDL >or= 60 mg/dL High HDL Cholesterol Performed By: #### L 500.4100, L500.4050, L100.0100 ####[facility] [address] [place], [address] Cholesterol in LDL [Mass/Vol] 88 mg/dL Normal 0-130 [facility] Comment on above: Order Comment: Order Date: 06/05/23Order Info: [id number] - CMPOrder Info: [id number] - LIPID Performed By: #### L 500.4100, L500.4050, L100.0100 ####[facility] [address] [place], [address] Cholesterol in VLDL [Mass/Vol] 18 mg/dL Normal 5-40 [facility] Comment on above: Order Comment: Order Date: 06/05/23Order Info: [id number] - CMPOrder Info: [id number] - LIPID Performed By: #### L 500.4100, L500.4050, L100.0100 ####[facility] [address] [place], [address] Triglyceride [Mass/Vol] 88 mg/dL Normal [facility] Comment on above: Order Comment: Order Date: 06/05/23Order Info: [id number] - CMPOrder Info: [id number] - LIPID Result Comment: The drugs N-Acetylcysteine and Metamizole may falsely depress this assay. Serum Triglycerides Reference Interval Normal <150 mg/dL Borderline high 150 - 199 mg/dL High 200 - 499 mg/dL Very High > or = 500 mg/dL Performed By: #### L 500.4100, L500.4050, L100.0100 ####[facility] [address] [place], [address] Absolute lymphocyte countOrd ered By: Bubba Solorzano on 05-31-2023 Lymphocytes Auto (Unsp spec) [#/Vol] 1.86 10*3/uL 0.83-4.51 [facility] Automated lymphocyte count a s percentage of total leukocytesOrdered By: Bubba Solorzano on 05-31-2023 Lymphocytes/100 WBC Auto (Unsp spec) 33.2 % 19-41 [facility] Basophil percentageOrdered B y: Bubba Solorzano on 05-31-2023 Basophils/100 WBC (Bld) 0.9 % 0-1 [facility] Bilirubin [Mass/Vol] 0.40 mg/dL 0.20-1.00 [facility] Comment on above: For patients on eltr ombopag therapy, use of [facility] TBIL is not recommended. Chloride [Moles/Vol] 109 mmol/L 98-107 [facility] Cholesterol [Mass/Vol] 159 mg/dL <200 [facility] Comment on above: <200 mg/dL Desirable 200-240 mg/dL Borderline >240 mg/dL High Risk Eosinophils/100 WBC (Bld) 2.5 % 0-5 [facility] Glucose [Mass/Vol] 104 mg/dL 74-106 [facility] Comment on above: Fasting Glucose resu lt from 100 to 125 mg/dL suggests IMPAIRED HOMEOSTASIS per A.D.A. criteria. Hemoglobin (Bld) [Mass/Vol] 13.6 g/dL 12.0-15.0 [facility] Monocytes/100 WBC (Bld) 7.5 % 0-10 [facility] Neutrophils (Bld) [#/Vol] 3.1 10*3/uL 2.0-7.7 [facility] Neutrophils/100 WBC (Bld) 55.5 % 47-70 [facility] Potassium [Moles/Vol] 3.7 mmol/L 3.5-5.1 [facility] Protein [Mass/Vol] 7.6 g/dL 6.4-8.2 [facility] Sodium [Moles/Vol] 141 mmol/L 136-145 [facility] Triglyceride [Mass/Vol] 91 mg/dL <199 [facility] Comment on above: The drugs N-Acetylcy steine and Metamizole may falsely depress this assay.Serum Triglycerides Reference Interval Normal <150 mg/dL Borderline high 150 - 199 mg/dL High 200 - 499 mg/dL Very High > or = 500 mg/dL WBC (Bld) [#/Vol] 5.6 10*3/uL 4.4-11.0 [facility] Determination of erythrocyte mean corpuscular volume (MCV)Ordered By: Bubba Solorzano on 05-31-2023 MCV (RBC) [Entitic vol] 81.6 fL 81-99 [facility] Erythrocyte distribution wid th ratioOrdered By: Bubba Solorzano on 05-31-2023 Erythrocyte distribution width (RBC) [Ratio] 12.7 % 11.6-14.6 [facility] Erythrocyte distribution wid th standard deviationOrdered By: Bubba Solorzano on 05-31-2023 Erythrocyte distribution width (RBC) [Entitic vol] 37.8 fL 35.1-43.9 [facility] Hematocrit Auto (Bld) [Volum e fraction]Ordered By: Bubba Solorzano on 05-31-2023 Hematocrit (Bld) [Volume fraction] 41.2 % 37-47 [facility] Immature granulocytes/100 WB C Auto (Bld)Ordered By: Bubba Solorzano on 05-31-2023 Immature granulocytes/100 WBC (Bld) 0.400 % 0.0-0.9 [facility] Comment on above: IG% - Immature Granu locytes (promyelocytes, myelocytes and metamyelocytes) > 1% indicates that a LEFT SHIFT is Present. Laboratory - Chemistry and C hemistry - challengeOrdered By: Bubba Solorzano on 05-31-2023 Albumin/Globulin [Mass ratio] 0.9 {ratio} 0.9-2.4 [facility] ALP [Catalytic activity/Vol] 105 U/L 45-117 [facility] ALT [Catalytic activity/Vol] 33 U/L 13-56 [facility] Cholesterol in HDL [Mass/Vol] 47 mg/dL >40 [facility] Comment on above: The drugs N-Acetylcy steine and Metamizole may falsely depress this assay. Reference Range HDL <40 mg/dL Low HDL Cholesterol HDL >or= 60 mg/dL High HDL Cholesterol Cholesterol in LDL [Mass/Vol] 94 mg/dL 0-130 [facility] CO2 [Moles/Vol] 28.0 mmol/L 21.0-32.0 [facility] Globulin (S) [Mass/Vol] 4.0 g/dL 2.2-4.2 [facility] Urea nitrogen/Creatinine [Mass ratio] 17.9 mg/mg 10-20 [facility] Laboratory - Hematology and Cell countsOrdered By: Bubba Solorzano on 05-31-2023 MCH (RBC) [Entitic mass] 26.9 pg 27.0-32.0 [facility] MCHC (RBC) [Mass/Vol] 33.0 g/dL 32-36 [facility] Nucleated RBC/100 WBC (Bld) [Ratio] 0 % 0-5 [facility] Platelet mean volume (Bld) [Entitic vol] 11.6 fL 6.2-12.0 [facility] Platelets (Bld) [#/Vol] 214 10*3/uL 150-450 [facility] No Panel InformationOrdered By: Bubba Solorzano on 05-31-2023 Estimated GFR (MDRD) Amer 98 mL/min >60 [facility] Comment on above: GFR Calc Estimated GFR (MDRD) Non-Af Amer 81 mL/min >60 [facility] Comment on above: Non- GFR Calc VLDL Cholesterol 18 mg/dL 5-40 [facility] RBC Auto (Bld) [#/Vol]Ordere d By: Bubba Solorzano on 05-31-2023 RBC (Bld) [#/Vol] 5.05 10*6/uL 4.2-5.4 [facility] Serum or plasma calcium beatrice urement (mass/volume)Ordered By: Bubba Solorzano on 05-31-2023 Calcium [Mass/Vol] 9.1 mg/dL 8.5-10.1 [facility] Serum or plasma creatinine m easurement (mass/volume)Ordered By: Bubba Solorzano on 05-31-2023 Creatinine [Mass/Vol] 0.78 mg/dL 0.55-1.02 [facility] Comment on above: The validity of the calculated GFR & GFRAA in patients over 70 years has not been determined. Clinical correlation is essential. Serum or plasma urea nitroge n measurement (mass/volume)Ordered By: Bubba Solorzano on 05-31-2023 Urea nitrogen [Mass/Vol] 14 mg/dL 7-18 [facility] Thin prep Papanicolaou smear with manual screeningOrdered By: Bubba Solorzano on 05-31-2023 Thin prep Papanicolaou smear with manual screening 3.6 g/dL 3.2-5.0 [facility] Thin prep Papanicolaou smear with manual screening 23 U/L 15-37 [facility] Thin prep Papanicolaou smear with manual screening 4 5-15 [facility] No Panel InformationOrdered By: Jeremiah Saxena on 03-04-2023 CA 19-9 Antigen 25 U/mL 0-35 [facility] Comment on above: [facility] [employer] El ectrochemiluminescence Immunoassay(ECLIA)Values obtained with different assay methods or kits cannotbe used interchangeably. Results cannot be interpreted asabsolute evidence of the presence or absence of malignantdisease.Performed at: [facility] [id number] Director: Jeremiah Palacios PhD, Phone: [phone] Serum or plasma carcinoembry onic antigen measurement (mass/volume)Ordered By: Jeremiah Saxena on 03-04-2023 Carcinoembryonic Ag [Mass/Vol] 1.5 ng/mL 0.0-4.7 [facility] Comment on above: Nonsmokers <3.9 Smok ers <5.6[facility] [employer] Electrochemiluminescence Immunoassay(ECLIA)Values obtained with different assay methods or kitscannot be used interchangeably. Results cannot beinterpreted as absolute evidence of the presence orabsence of malignant disease. Absolute lymphocyte countOrd ered By: Bubba Solorzano on 01-29-2023 Lymphocytes Auto (Unsp spec) [#/Vol] 2.85 10*3/uL 0.83-4.51 [facility] Basophil percentageOrdered B y: Bubba Solorzano on 01-29-2023 Basophils/100 WBC (Bld) 0.7 % 0-1 [facility] Bilirubin [Mass/Vol] 0.50 mg/dL 0.20-1.00 [facility] Comment on above: For patients on eltr ombopag therapy, use of [facility] TBIL is not recommended. Chloride [Moles/Vol] 104 mmol/L 98-107 [facility] Cholesterol [Mass/Vol] 142 mg/dL <200 [facility] Comment on above: <200 mg/dL Desirable 200-240 mg/dL Borderline >240 mg/dL High Risk Eosinophils/100 WBC (Bld) 2.4 % 0-5 [facility] Glucose [Mass/Vol] 79 mg/dL 74-106 [facility] Neutrophils (Bld) [#/Vol] 4.0 10*3/uL 2.0-7.7 [facility] Neutrophils/100 WBC (Bld) 52.4 % 47-70 [facility] Potassium [Moles/Vol] 3.7 mmol/L 3.5-5.1 [facility] Protein [Mass/Vol] 8.0 g/dL 6.4-8.2 [facility] Sodium [Moles/Vol] 139 mmol/L 136-145 [facility] Triglyceride [Mass/Vol] 105 mg/dL <199 [facility] Comment on above: The drugs N-Acetylcy steine and Metamizole may falsely depress this assay.Serum Triglycerides Reference Interval Normal <150 mg/dL Borderline high 150 - 199 mg/dL High 200 - 499 mg/dL Very High > or = 500 mg/dL WBC (Bld) [#/Vol] 7.6 10*3/uL 4.4-11.0 [facility] Blood erythrocytes count (nu mber/volume)Ordered By: Bubba Solorzano on 01-29-2023 RBC (Bld) [#/Vol] 4.84 10*6/uL 4.2-5.4 [facility] Blood hemoglobin measurement (mass/volume)Ordered By: Bubba Solorzano on 01-29-2023 Hemoglobin (Bld) [Mass/Vol] 12.6 g/dL 12.0-15.0 [facility] Blood lymphocytes/100 leukoc ytesOrdered By: Bubba Solorzano on 01-29-2023 Lymphocytes/100 WBC (Bld) 37.6 % 19-41 [facility] Blood monocytes/100 leukocyt esOrdered By: Bbuba Solorzano on 01-29-2023 Monocytes/100 WBC (Bld) 6.6 % 0-10 [facility] Blood platelet mean volumeOr dered By: Bubba Solorzano on 01-29-2023 Platelet mean volume (Bld) [Entitic vol] 12.2 fL 6.2-12.0 [facility] Determination of erythrocyte mean corpuscular volume (MCV)Ordered By: Bubba Solorzano on 01-29-2023 MCV (RBC) [Entitic vol] 83.5 fL 81-99 [facility] Hematocrit Auto (Bld) [Volum e fraction]Ordered By: Bubba Solorzano on 01-29-2023 Hematocrit (Bld) [Volume fraction] 40.4 % 37-47 [facility] Laboratory - Chemistry and C hemistry - challengeOrdered By: Bubba Solorzano on 01-29-2023 ALP [Catalytic activity/Vol] 98 U/L 45-117 [facility] ALT [Catalytic activity/Vol] 36 U/L 13-56 [facility] CO2 [Moles/Vol] 27.0 mmol/L 21.0-32.0 [facility] Globulin (S) [Mass/Vol] 4.2 g/dL 2.2-4.2 [facility] Urea nitrogen/Creatinine [Mass ratio] 12.4 mg/mg 10-20 [facility] [facility] - Hematology and Cell countsOrdered By: Bubba Solorzano on 01-29-2023 Erythrocyte distribution width (RBC) [Entitic vol] 38.8 fL 35.1-43.9 [facility] Erythrocyte distribution width (RBC) [Ratio] 12.7 % 11.6-14.6 [facility] Immature granulocytes/100 WBC (Bld) 0.300 % 0.0-0.9 [facility] Comment on above: IG% - Immature Granu locytes (promyelocytes, myelocytes and metamyelocytes) > 1% indicates that a LEFT SHIFT is Present. MCH (RBC) [Entitic mass] 26.0 pg 27.0-32.0 [facility] Nucleated RBC/100 WBC (Bld) [Ratio] 0 % 0-5 [facility] MCHC Auto (RBC) [Mass/Vol]Or dered By: Bubba Solorzano on 01-29-2023 MCHC (RBC) [Mass/Vol] 31.2 g/dL 32-36 [facility] No Panel InformationOrdered By: Bubba Solorzano on 01-29-2023 Estimated GFR (MDRD) Amer 85 mL/min >60 [facility] Comment on above: GFR Calc Estimated GFR (MDRD) Non-Af Amer 70 mL/min >60 [facility] Comment on above: Non- GFR Calc Platelets bldOrdered By: Antonino Solorzano on 01-29-2023 Platelets (Bld) [#/Vol] 229 10*3/uL 150-450 [facility] Serum or plasma albumin beatrice urement (mass/volume)Ordered By: Bubba Solorzano on 01-29-2023 Albumin [Mass/Vol] 3.8 g/dL 3.2-5.0 [facility] Serum or plasma albumin/glob ulin mass ratioOrdered By: Bubba Solorzano on 01-29-2023 Albumin/Globulin [Mass ratio] 0.9 {ratio} 0.9-2.4 [facility] Serum or plasma calcium beatrice urement (mass/volume)Ordered By: Bubba Solorzano on 01-29-2023 Calcium [Mass/Vol] 9.3 mg/dL 8.5-10.1 [facility] Serum or plasma cholesterol in HDL measurement (mass/volume)Ordered By: Bubba Solorzano on 01-29-2023 Cholesterol in HDL [Mass/Vol] 42 mg/dL >40 [facility] Comment on above: The drugs N-Acetylcy steine and Metamizole may falsely depress this assay. Reference Range HDL <40 mg/dL Low HDL Cholesterol HDL >or= 60 mg/dL High HDL Cholesterol Serum or plasma cholesterol in VLDL measurement (mass/volume)Ordered By: Bubba Solorzano on 01-29-2023 Cholesterol in VLDL [Mass/Vol] 21 mg/dL 5-40 [facility] Serum or plasma creatinine m easurement (mass/volume)Ordered By: Bubba Solorzano on 01-29-2023 Creatinine [Mass/Vol] 0.89 mg/dL 0.55-1.02 [facility] Comment on above: The validity of the calculated GFR & GFRAA in patients over 70 years has not been determined. Clinical correlation is essential. Serum or plasma low density lipoprotein (LDL) cholesterol measurement (mass/volume)Ordered By: Bubba Solorzano on 01-29-2023 Cholesterol in LDL [Mass/Vol] 79 mg/dL 0-130 [facility] Serum or plasma urea nitroge n measurement (mass/volume)Ordered By: Bubba Solorzano on 01-29-2023 Urea nitrogen [Mass/Vol] 11 mg/dL 7-18 [facility] Thin prep Papanicolaou smear with manual screeningOrdered By: Bubba Solorzano on 01-29-2023 Thin prep Papanicolaou smear with manual screening 29 U/L 15-37 [facility] Thin prep Papanicolaou smear with manual screening 8 5-15 [facility] Basophil percentageOrdered B y: Bubba Solorzano on 01-02-2023 Bilirubin [Mass/Vol] 0.30 mg/dL 0.20-1.00 [facility] Comment on above: For patients on eltr ombopag therapy, use of [facility] TBIL is not recommended. Protein [Mass/Vol] 8.4 g/dL 6.4-8.2 [facility] Direct bilirubinOrdered By: Bubba Solorzano on 01-02-2023 Bilirubin.direct [Mass/Vol] 0.08 mg/dL 0.00-0.30 [facility] - Chemistry and C hemistry - challengeOrdered By: Bubba Solorzano on 01-02-2023 Albumin [Mass/Vol] 3.6 g/dL 2.9-4.4 [facility] ALP [Catalytic activity/Vol] 104 U/L 45-117 [facility] ALT [Catalytic activity/Vol] 37 U/L 13-56 [facility] Globulin (S) [Mass/Vol] 4.5 g/dL 2.2-4.2 [facility] No Panel InformationOrdered By: Bubba Solorzano on 01-02-2023 Addendum Document Comment . [facility] Comment on above: The SPE pattern appe ars unremarkable. Evidence ofmonoclonal protein is not apparent.Performed at: [facility] [employer] [id number] Director: Jeremiah aPlacios PhD, Phone: [phone] Ytiro-2-Knddsrnha 0.2 g/dL 0.0-0.4 [facility] Jhmwx-3-Dbwwpzxvc 0.9 g/dL 0.4-1.0 [facility] Gamma Globulins 1.6 g/dL 0.4-1.8 [facility] Protein Fractions Elph [Inte rp]Ordered By: Bubba Solorzano on 01-02-2023 Protein Fractions [Interp] Comment . [facility] Comment on above: Protein electrophore sis scan will follow via computer,mail, or fisheries diver delivery. Serum albumin to globulin ra lexy by protein electrophoresisOrdered By: Bubba Solorzano on 01-02-2023 Albumin/Globulin Elph [Mass ratio] 0.9 0.7-1.7 [facility] Serum globulin measurement ( mass/volume)Ordered By: Bubba Solorzano on 01-02-2023 Globulin (S) [Mass/Vol] 3.8 g/dL 2.2-3.9 [facility] Serum or plasma albumin beatrice urement (mass/volume)Ordered By: Bubba Solorzano on 01-02-2023 Albumin [Mass/Vol] 3.9 g/dL 3.2-5.0 [facility] Serum or plasma beta globuli n measurement by electrophoresis (mass/volume)Ordered By: Bubba Solorzano on 01-02-2023 Beta globulin Elph [Mass/Vol] 1.2 g/dL 0.7-1.3 [facility] Thin prep Papanicolaou smear with manual screeningOrdered By: Bubba Solorzano on 01-02-2023 Thin prep Papanicolaou smear with manual screening 19 U/L 15-37 [facility] Thin prep Papanicolaou smear with manual screening See comment [facility] Comment on above: NOT OBSERVED Total protein bloodOrdered B y: Bubba Solorzano on 01-02-2023 Protein [Mass/Vol] 7.4 g/dL 6.0-8.5 [facility] Absolute lymphocyte countOrd ered By: Bubba Richardsfiorella on 10-04-2022 Lymphocytes Auto (Unsp spec) [#/Vol] 2.70 10*3/uL 0.83-4.51 [facility] Basophil percentageOrdered B y: Bubba Richardsfiorella on 10-04-2022 Basophil percentage 0-5 SEEN /hpf 0-5 [facility] Basophils/100 WBC (Bld) 0.6 % 0-1 [facility] Bilirubin [Mass/Vol] 0.30 mg/dL 0.20-1.00 [facility] Comment on above: For patients on eltr ombopag therapy, use of [facility] TBIL is not recommended. Chloride [Moles/Vol] 107 mmol/L 98-107 [facility] Cholesterol [Mass/Vol] 265 mg/dL <200 [facility] Comment on above: <200 mg/dL Desirable 200-240 mg/dL Borderline >240 mg/dL High Risk Eosinophils/100 WBC (Bld) 2.8 % 0-5 [facility] Glucose [Mass/Vol] 76 mg/dL 74-106 [facility] Neutrophils (Bld) [#/Vol] 4.3 10*3/uL 2.0-7.7 [facility] Neutrophils/100 WBC (Bld) 55.2 % 47-70 [facility] Potassium [Moles/Vol] 3.8 mmol/L 3.5-5.1 [facility] Protein [Mass/Vol] 7.9 g/dL 6.4-8.2 [facility] Sodium [Moles/Vol] 139 mmol/L 136-145 [facility] Triglyceride [Mass/Vol] 185 mg/dL <199 [facility] Comment on above: The drugs N-Acetylcy steine and Metamizole may falsely depress this assay.Serum Triglycerides Reference Interval Normal <150 mg/dL Borderline high 150 - 199 mg/dL High 200 - 499 mg/dL Very High > or = 500 mg/dL WBC (Bld) [#/Vol] 7.8 10*3/uL 4.4-11.0 [facility] Bilirubin Test strip Ql (U)O rdered By: Bubba Solorzano on 10-04-2022 Bilirubin Ql (U) Negative Negative [facility] Blood erythrocytes count (nu mber/volume)Ordered By: Bubba Solorzano on 10-04-2022 RBC (Bld) [#/Vol] 5.02 10*6/uL 4.2-5.4 [facility] Blood hemoglobin measurement (mass/volume)Ordered By: Bubba Solorzano on 10-04-2022 Hemoglobin (Bld) [Mass/Vol] 13.4 g/dL 12.0-15.0 [facility] Blood lymphocytes/100 leukoc ytesOrdered By: Bubba Solorzano on 10-04-2022 Lymphocytes/100 WBC (Bld) 34.6 % 19-41 [facility] Blood monocytes/100 leukocyt esOrdered By: Bubba Solorzano on 10-04-2022 Monocytes/100 WBC (Bld) 6.5 % 0-10 [facility] Blood platelet mean volumeOr dered By: Bubba Solorzano on 10-04-2022 Platelet mean volume (Bld) [Entitic vol] 12.2 fL 6.2-12.0 [facility] Determination of erythrocyte mean corpuscular volume (MCV)Ordered By: Bubba Solorzano on 10-04-2022 MCV (RBC) [Entitic vol] 82.3 fL 81-99 [facility] Hematocrit Auto (Bld) [Volum e fraction]Ordered By: Bubba Solorzano on 10-04-2022 Hematocrit (Bld) [Volume fraction] 41.3 % 37-47 [facility] Ketones Test strip Ql (U)Ord ered By: Bubba Solorzano on 10-04-2022 Ketones Ql (U) Negative Negative [facility] - Chemistry and C hemistry - challengeOrdered By: Bubba Solorzano on 10-04-2022 ALP [Catalytic activity/Vol] 108 U/L 45-117 [facility] ALT [Catalytic activity/Vol] 30 U/L 13-56 [facility] CO2 [Moles/Vol] 26.0 mmol/L 21.0-32.0 [facility] Globulin (S) [Mass/Vol] 4.2 g/dL 2.2-4.2 [facility] Urea nitrogen/Creatinine [Mass ratio] 16.1 mg/mg 10-20 [facility] - Hematology and Cell countsOrdered By: Bubba Solorzano on 10-04-2022 Erythrocyte distribution width (RBC) [Entitic vol] 38.6 fL 35.1-43.9 [facility] Erythrocyte distribution width (RBC) [Ratio] 13.0 % 11.6-14.6 [facility] Immature granulocytes/100 WBC (Bld) 0.300 % 0.0-0.9 [facility] Comment on above: IG% - Immature Granu locytes (promyelocytes, myelocytes and metamyelocytes) > 1% indicates that a LEFT SHIFT is Present. MCH (RBC) [Entitic mass] 26.7 pg 27.0-32.0 [facility] Nucleated RBC/100 WBC (Bld) [Ratio] 0 % 0-5 [facility] MCHC Auto (RBC) [Mass/Vol]Or dered By: Bubba Solorzano on 10-04-2022 MCHC (RBC) [Mass/Vol] 32.4 g/dL 32-36 [facility] Mucus LM Ql (Urine sed)Order ed By: Bubba Solorzano on 10-04-2022 Mucus Ql (Urine sed) 0 SEEN /hpf [facility] Nitrite Test strip Ql (U)Ord ered By: Bubba Solorzano on 10-04-2022 Nitrite Ql (U) Negative Negative [facility] No Panel InformationOrdered By: Bubba Solorzano on 10-04-2022 Estimated GFR (MDRD) Amer 75 mL/min >60 [facility] Comment on above: GFR Calc Estimated GFR (MDRD) Non-Af Amer 62 mL/min >60 [facility] Comment on above: Non- GFR Calc Parathyroid Hormone (Intact) 58.7 pg/mL 18.4-80.1 [facility] Thyroid Stimulating Hormone (TSH) 1.85 uIU/mL 0.358-3.74 [facility] Platelets bldOrdered By: Antonino Solorzano on 10-04-2022 Platelets (Bld) [#/Vol] 232 10*3/uL 150-450 [facility] Protein Test strip Ql (U)Ord ered By: Bubba Solorzano on 10-04-2022 Protein Ql (U) Negative Negative [facility] Serum or plasma albumin beatrice urement (mass/volume)Ordered By: Bubba Solorzano on 10-04-2022 Albumin [Mass/Vol] 3.7 g/dL 3.2-5.0 [facility] Serum or plasma albumin/glob ulin mass ratioOrdered By: Bubba Solorzano on 10-04-2022 Albumin/Globulin [Mass ratio] 0.9 {ratio} 0.9-2.4 [facility] Serum or plasma calcium beatrice urement (mass/volume)Ordered By: Bubba Solorzano on 10-04-2022 Calcium [Mass/Vol] 9.2 mg/dL 8.5-10.1 [facility] Serum or plasma cholesterol in HDL measurement (mass/volume)Ordered By: Bubba Solorzano on 10-04-2022 Cholesterol in HDL [Mass/Vol] 37 mg/dL >40 [facility] Comment on above: The drugs N-Acetylcy steine and Metamizole may falsely depress this assay. Reference Range HDL <40 mg/dL Low HDL Cholesterol HDL >or= 60 mg/dL High HDL Cholesterol Serum or plasma cholesterol in VLDL measurement (mass/volume)Ordered By: Bubba Solorzano on 10-04-2022 Cholesterol in VLDL [Mass/Vol] 37 mg/dL 5-40 [facility] Serum or plasma creatinine m easurement (mass/volume)Ordered By: Bubba Solorzano on 10-04-2022 Creatinine [Mass/Vol] 0.99 mg/dL 0.55-1.02 [facility] Comment on above: The validity of the calculated GFR & GFRAA in patients over 70 years has not been determined. Clinical correlation is essential. Serum or plasma low density lipoprotein (LDL) cholesterol measurement (mass/volume)Ordered By: Bubba Solorzano on 10-04-2022 Cholesterol in LDL [Mass/Vol] 191 mg/dL 0-130 [facility] Serum or plasma urea nitroge n measurement (mass/volume)Ordered By: Bubba Solorzano on 10-04-2022 Urea nitrogen [Mass/Vol] 16 mg/dL 7-18 [facility] Squamous epithelial cells de tection in urine sediment by light microscopyOrdered By: Bubba Solorzano on 10-04-2022 Epithelial cells.squamous LM Ql (Urine sed) 0 SEEN /hpf 5-10 [facility] Thin prep Papanicolaou smear with manual screeningOrdered By: Bubba Solorzano on 10-04-2022 Thin prep Papanicolaou smear with manual screening 24 U/L 15-37 [facility] Thin prep Papanicolaou smear with manual screening 6 5-15 [facility] Urine blood detectionOrdered By: Bubba Solorzano on 10-04-2022 RBC Ql (U) 25 /ul Negative [facility] RBC Ql (U) 0 SEEN /hpf 0-5 [facility] Urine clarityOrdered By: Antonino Solorzano on 10-04-2022 Clarity (U) Clear Clear [facility] Urine color determinationOrd ered By: Bubba Solorzano on 10-04-2022 Color (U) Yellow Yellow [facility] Urine glucose detectionOrder ed By: Bubba Solorzano on 10-04-2022 Glucose Ql (U) Normal mg/dl Normal [facility] Urine leukocyte esterase det ection by dipstickOrdered By: Bubba Solorzano on 10-04-2022 Leukocyte esterase Test strip Ql (U) 100 /ul Negative [facility] Urine pHOrdered By: Bubba knapp on 10-04-2022 pH (U) 5.0 [pH] 5.0 - 8.0 [facility] Urine sediment bacteria coun t by microscopy (number/high power field)Ordered By: Bubba Solorzano on 10-04-2022 Bacteria LM.HPF (Urine sed) [#/Area] 0 /[HPF] None Seen [facility] Urine specific gravity measu rementOrdered By: Bubba Solorzano on 10-04-2022 Specific gravity (U) [Rel density] 1.010 1.002-1.03 0 [facility] Urobilinogen Auto test strip Ql (U)Ordered By: Bubba Solorzano on 10-04-2022 Urobilinogen Ql (U) Normal mg/dl Normal [facility] Office Visiton 03-04-2022 Follow-up visit [id number] Lito Noble 1965 F Date Provider Department Center 03/04/2022 [id number] None Family History Problem Relation Age of Onset No Known Problems Sister Stroke Sister Comments: multiple strokes.Embolic Other Mother Comments: Chronic obstructive pulmonary disease Diabetes Father Heart attack Father Stroke Father Colon cancer Mother's Sister High Blood Pressure Mother Heart disease Father Comments: Coronary artery disease with stents Ovarian cancer Neg Hx Breast cancer Cousin Hyperlipidemia Sister Other Sister Comments: smoker Family Status - Relation Status Age at Sister Alive Sister Alive Mother Alive Father Mother's Sister Neg Hx Cousin Other Level of Service:37802 [place] POSTOP FOLLOW UP VISIT RELATED TO ORIGINAL PX Reason for Visit and Comments: Follow-up [817248] - Post op procedure bladder sling Normal [facility] Progress Noteon 03-04-2022 Progress Note Post-op check HPI: Pt had the following combined surgery on 01/15/2022 Procedure: Retropubic midurethral sling (polypropylene mesh, bottom up technique) and cystoscopy Procedure: Lap BSO She presents today for 6 week post op check. She reports complete satisfaction in MINISTERIO symptoms. Is urinating well and denies feelings of incomplete emptying. She is overall very happy with symptoms state Review of Systems Constitutional: Negative for activity change, diaphoresis, fatigue and fever. Genitourinary: Negative for decreased urine volume, difficulty urinating, dysuria, flank pain, hematuria, menstrual problem, pelvic pain, vaginal bleeding and vaginal discharge. Skin: Negative for color change, pallor and rash. Past Medical History: Diagnosis Date Arthritis Asthma Cancer (CMS/HCC) (HCC) 1999 cervical Hyperlipidemia Prolonged emergence from general anesthesia patient states she took a long time to wake up after hysterectomy Thyroid disease Past Surgical History: Procedure Laterality Date ABDOMINAL SURGERY BLADDER SUSPENSION 01/15/2022 Bilateral salpingo-oopherectomy.Retr opublic midurethral sling(polypropylene mesh,bottom up technique and cystoscopy FRACTURE SURGERY Left Ankle at age 15 THYROID LOBECTOMY Right 02/06/2017 parathyroid TOTAL ABDOMINAL HYSTERECTOMY 2001 2001 still has ovaries Physical Exam Constitutional: General: She is not in acute distress. Appearance: Normal appearance. She is well-developed, well-groomed and normal weight. She is not ill-appearing or toxic-appearing. Genitourinary: Bladder and urethral meatus normal. Genitourinary Comments: Incision completely healed. Ne mesh exposure No labial fusion noted. Vaginal cuff intact. No vaginal prolapse present. Mild vaginal atrophy present. No urethral prolapse, tenderness, hypermobility or stress urinary incontinence with cough stress test present. Neurological: Mental Status: She is alert. Psychiatric: Behavior: Behavior is cooperative. Vitals reviewed. 1. MINISTERIO (stress urinary incontinence, female) -resolved after surgery 2. Postoperative examination -healed appropriately -ok to resume all normal activities -notify office with new or worsening symptoms [facility] Office Visiton 02-20-2022 Follow-up visit [id number] Lito Noble en E 1965 F Date Provider Department Center 02/20/2022 [id number] None Family History Problem Relation Age of Onset No Known Problems Sister Stroke Sister Comments: multiple strokes.Embolic Other Mother Comments: Chronic obstructive pulmonary disease Diabetes Father Heart attack Father Stroke Father Colon cancer Mother's Sister High Blood Pressure Mother Heart disease Father Comments: Coronary artery disease with stents Ovarian cancer Neg Hx Breast cancer Cousin Hyperlipidemia Sister Other Sister Comments: smoker Family Status - Relation Status Age at Sister Alive Sister Alive Mother Alive Father Mother's Sister Neg Hx Cousin Other Level of Service:94027 [place] POSTOP FOLLOW UP VISIT RELATED TO ORIGINAL PX Reason for Visit and Comments: Follow-up [676324] - Post-op.Retropubic midurethral sling (polypropylene mesh, bottom up technique) and cystoscopy on 01/15/22 [facility] Progress Noteon 02-20-2022 Progress Note Crew Clerk by Anabelle [facility] Office Visiton 01-31-2022 Follow-up visit [id number] Lito Noble en E 1965 F Date Provider Department Center 01/31/2022 BELEN ANDERSON [facility] None Family History Problem Relation Age of Onset No Known Problems Sister Stroke Sister Comments: multiple strokes.Embolic Other Mother Comments: Chronic obstructive pulmonary disease Diabetes Father Heart attack Father Stroke Father Colon cancer Mother's Sister High Blood Pressure Mother Heart disease Father Comments: Coronary artery disease with stents Ovarian cancer Neg Hx Breast cancer Cousin Hyperlipidemia Sister Other Sister Comments: smoker Family Status - Relation Status Age at Sister Alive Sister Alive Mother Alive Father Mother's Sister Neg Hx Cousin Other Level of Service:79002 [place] POSTOP FOLLOW UP VISIT RELATED TO ORIGINAL PX Reason for Visit and Comments: Post-op Visit [559] [facility] Progress Noteon 01-31-2022 Progress Note @LOGOIMAGE@ Chief Complaint Patient presents with Post-op Visit History of the Present Illness: Johanna Noble is a 56 y.o. who presents to the office for post-operative evaluation. 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 RIGHT OVARY WITH BENIGN SEROMUCINOUS CYSTOADENOFIBROMA. BILATERAL UNREMARKABLE FALLOPIAN TUBES. Comment: The left ovary contains a spindle cell neoplasm with areas of fibrosis and edema. These spindle cells stain positive for desmin and SMA and are negative for inhibin, supporting a smooth muscle process. This is consistent with a leiomyoma. No evidence of malignancy is identified. CRH/CRH Signature> JALEN SMITH M.D. Interval History Since her surgery she has been doing well and is without complaints. She denies fevers, chills, nausea, vomiting, bowel or bladder dysfunction. Pain is well controlled. No drainage from incisions. No abnormal vaginal bleeding or discharge. Patient requesting to go back to work February 18 with light duty. Past Medical History: Diagnosis Date Arthritis Asthma Cancer (CMS/HCC) (HCC) 1999 cervical Hyperlipidemia Prolonged emergence from general anesthesia patient states she took a long time to wake up after hysterectomy Thyroid disease Past Surgical History: Procedure Laterality Date ABDOMINAL SURGERY BLADDER SUSPENSION 01/15/2022 Bilateral salpingo-oopherectomy FRACTURE SURGERY Left Ankle at age 15 THYROID LOBECTOMY Right 02/06/2017 parathyroid TOTAL ABDOMINAL HYSTERECTOMY 2001 2001 still has ovaries @MEDCMED@ No Known Allergies Review of Systems: As per the HPI, otherwise negative Vitals: 01/31/22 0859 BP: 119/78 Pulse: 81 Body mass index is 28.38 kg/m?. Physical Exam Constitutional: Appearance: Normal appearance. HENT: Head: Normocephalic. Pulmonary: Effort: Pulmonary effort is normal. Abdominal: Palpations: Abdomen is soft. Comments: All laparoscopic incisions well approximated, negative for erythema, drainage, induration, warmth, signs of infection. Skin: General: Skin is warm and dry. Neurological: Mental Status: She is alert and oriented to person, place, and time. Psychiatric: Mood and Affect: Mood normal. Behavior: Behavior normal. Assessment/Plan: 56 y.o. s/p Lap BSO for left ov mass c/w fibroma. Doing well from a post-operative standpoint. Post-operative instructions reviewed. Patient was given a copy of the pathology report for her records. Suggested use Neosporin on small incision lower abdomen which has erythema. Work restrictions letter printed for patient. The patient had an opportunity to ask questions, all of which were answered to the best of my ability. She is in agreement with the above noted plan. Follow up with primary [facility] for yearly well woman's exams. Normal [facility] 36on 01-22-2022 36 Spoke with pt and e states her lap sites look good. She has no redness, no fever, no drainage and no foul odor. Her surgical glue is coming off. Pt to call office with any questions or concerns. Normal [facility] 36 Left message for pt to call back. Lap BSO 01/15/22. Normal [facility] Medical Cytologyon 2 Medical Cytology [facility] [id number] DEPARTMENT OF PATHOLOGY AND [facility] LABORATORY MEDICINE [address] [place], [place] [id number] FINAL MEDICAL CYTOLOGY REPORT NAME: JOHANNA NOBLE : 1965 56 Y F BILLING NO.: [id number] LOC[facility]: [facility] PACU OUTPT 1PAC PROCEDURE 01/15/2022 62 DATE: PHYSICIAN: LUIS FERNANDO WEBSTER MD RECEIVED DATE: 01/16/2022 ATTENDING: LUIS FERNANDO WEBSTER MD REPORT DATE: 01/17/2022 COPIES TO: CLINICAL DATA: DIAGNOSIS NO MALIGNANT CELLS IDENTIFIED. Comment: ADDITIONAL SURGICAL CASES EXIST FOR THIS SAME DATE OF SERVICE SPECIMEN: PELVIC WASH PROCEDURE(S): WASHINGS GROSS DESCRIPTION: 100 ml, clear fluid, w/cytolyt. Materials Prepared & Examined: Cell Blocks . . . . . . . . . . . . 1 Monolayers . . . . . . . . . . . . 1 SJK Screened by Goldie HEREDIA, PhD The following statement applies to all immunohistochemistry, in situ hybridization, molecular studies, and immunofluorescence testing. The use of one or more reagents in the above tests is regulated as an analyte specific reagent (ASR). These tests were developed and their performance characteristics determined by the clinical laboratories of [facility]. They have not been cleared by the US Food and Drug Administration (FDA). The FDA has determined that such clearance or approval is not necessary. All the above immunostains were performed on paraffin embedded tissue. Appropriate positive and negative controls (where applicable) were run in parallel with the patient's specimen; these controls showed expected staining pattern, with acceptable intensity of staining. Immunohistochemical assays have not been validated on decalcified tissues. Results should be interpreted with caution given the raised possibility of false negativity on decalcified specimens. Case reviewed at [facility] [address] [place] [address]. DEPARTMENT OF PATHOLOGY AND LABORATORY MEDICINE [place], [place] [address] [email or web address] [facility] Op Noteon 01-15-2022 Op Note Pre-operative Diagno sis: pelvic mass Post-operative Diagnosis: same Procedure: Lap BSO Surgeon: Luis Fernando Webster MD Anesthesia: General Estimated blood loss: Minimal Findings: left ov mass c/w fibroma Complications: none Disc description of findings Left ovary had a bilobed solid mass consistent with leiomyoma or ovarian fibroma. No evidence of malignancy was noted. The right tube and ovary were normal. Description of operation; the patient identified brought to the operating room and after ministration of general anesthesia was placed in lithotomy position using yellowfin stirrups. Portillo cath was placed after she underwent an abdominal perineal vaginal prep and drape antibiotics were given. Timeout was performed. A small incision was made in the inferior fold of the umbilicus and using the direct technique a blunt da Phillip trochars were inserted in the abdominal cavity 2 blunt da Phillip trochars and a 5 mm blunt trocar were all inserted on the abdomen under direct vision. Intra-abdominal expiration was normal except for the ovarian masses some omental adhesions to the intra-abdominal wall were sharply lysed using the Enseal device and Trendelenburg was then used to displace the bowel about the pelvis. The right pelvic sidewall was opened the right ureter identified the right ovarian vessels were skeletonized both ureters coagulated Enseal device and divided as was the attachments to the pelvic sidewall. This detached the right tube and ovary nicely. On the left side left round ligament was coagulated and divided allowing the retroperitoneal space to be explored the ureter was identified the left ovarian vessels were skeletonized above the ureter coagulated the Enseal device and divided as were the attachments to the pelvic sidewall. Both ovaries then placed into a large kidney Norma out through the umbilical incision which was extended. Both incisions are closed using a running 0 Vicryl followed by subcuticular 4 Monocryl and Dermabond all the skin incisions. The surgery was then turned over to urogynecology for bladder surgery. [facility] Op Note Operative Note Department of Urogynecology Patient: Johanna Noble : 1965 Date of Procedure: 01/15/22 Pre-operative Diagnosis: 56 y.o. ( delivery) woman with stress urinary incontinence here for surgical intervention at the time of her robotic BSO with Dr. Webster. Risks, benefits, and alternatives were previously discussed and she elected to proceed. POP-Q: -2 Aa -2 Ba -7.5 C 2 GH 3 PB 8 TVL -3 Ap -3 Bp x D Cough stress test: positive @ 80mL ?? Urethral hypermobility: present? Post-operative Diagnosis: Same Procedure: Retropubic midurethral sling (polypropylene mesh, bottom up technique) and cystoscopy Surgeon: Wil Watkins DO Cover Creaser(s): Dr. Kaur Anesthesia: general Findings: Cystoscopy: Global evaluation performed. No evidence of intraoperative injury. No detrusor perforation or tethering after sling trochar placement. Urothelium grossly normal. Bilateral ureteral jets present. Total IV fluids/Blood products: 600 ml crystalloid Urine Output: 300 ml Estimated blood loss: 75ml Specimens: per Dr. Webster Instrument and Sponge Count: Correct x 2 Yes per nursing Complications: none Condition: good, transferred to PACU Operative note: After reviewing consent with the patient, she was taken to the operating room where she correctly identified herself and the procedure to be performed. Prophylactic antibiotics were administered. The patient was placed under anesthesia and her airway was secured. The patient was then positioned in lithotomy using Reji-type stirrups. The abdomen was prepped with Chloraprep. The vulva and vagina were prepped with chlorhexidine and she was draped in routine sterile fashion. Timeout procedure was performed without conflict. A Portillo catheter was placed using sterile technique. Please see Dr. Webster's operative report for full details about the robotic BSO. I was called back into the operating room once his portion of the procedure was complete and abdominal incisions were being closed. The suprapubic incision sites were marked and incised using a 15 blade scalpel. 10 mL 1% lidocaine with epinephrine were infiltrated in the suburethral tissue. A suburethral incision was made at the level of the mid urethra. The vaginal epithelium was dissected off the underlying connective tissue bilaterally creating subepithelial tunnels. With the catheter guide in place the sling trochars were passed bilaterally. Cystoscopy was then performed and revealed the above findings. The Portillo catheter was replaced under sterile technique. The sling was tensioned appropriately in a tension-free manner. Excess polypropylene mesh was cut below the level of the suprapubic skin incisions. The suburethral incision was closed using 0 Vicryl in an interrupted fashion. The suprapubic incisions were cleaned and closed with Dermabond. All counts were reported to be correct. The patient was taken out of lithotomy position and awoken from anesthesia. She was transferred to the recovery bed and taken to the recovery area in good condition. She will have a backfill void trial prior to discharge. Wil Watkins DO 01/15/2022, 2:[address] [facility] [address] Abdomen/Pelvis w/ Contras ton 11-23-2021 CT Abdomen/Pelvis w/ Contrast Patient Name: JOHANNA NOBLE Computed Tomography ACCESSION EXAM DATE/TIME PROCEDURE ORDERING PROVIDER [id number] 11/23/2021 14:[address] Abdomen/Pelvis w/ IV DO BARTON PAUL E. Contrast (IV Onl CPT code 71412 Q9967 Reason For Exam (CT Abdomen/Pelvis w/ IV Contrast (IV Onl) ABDOMINAL MASS Addendum The statement regarding the gallbladder in the body of the report is a voice recognition error. The gallbladder is nondistended. An addendum is also issued as additional clinical information is now available. The patient has a reported history of prior hysterectomy. The lobulated pelvic lesions previously described could represent leiomyomata in the setting of a partial hysterectomy, however given this history additional causes including endometriosis or ovarian lesions would need to be considered. Recommend gynecology consultation. CRITICAL TEST RESULT COMMUNICATION: Notification of these findings was made to RJ BARTON via phone call on 11/27/2021 9:30 PM EDT. Report Dictated on Final Addendum Addendum Dictating Physician: MD ADAMES NICHOLAS Signed Date and Time: 11/27/2021 9:31 pm Signed by: MD ADAMES NICHOLAS Transcribed Date and Time: 11/27/2021 9:[address] ABDOMEN AND PELVIS WITH CONTRAST EXAM DATE AND TIME: 11/23/2021 2:07 PM EDT INDICATION: 56 years Female with abdominal mass COMPARISON: 11/04/2016 TECHNIQUE: Transaxial sequence through the abdomen and pelvis with 3 mm reconstruction with dynamic intravenous infusion of 75 mL of 370 mg% contrast media. Coronal and sagittal reconstructions included. Dose reduction was employed with automated exposure control. FINDINGS: Chest base: Multiple nodular densities along the right major fissure measuring up to 7 mm, new from the prior study. Small hiatal hernia. Liver: Normal size and contour. No focal lesion. Biliary tree: Normal caliber. The gallbladder is surgically absent. Spleen: Normal. Computed Tomography Report Adrenals: Normal. Pancreas: Normal. Kidneys: Symmetric contrast enhancement without hydronephrosis. No focal lesion. Free fluid: None. Retroperitoneal/mesenteric lymphadenopathy: None. Bowel: Normal caliber. Diverticuli are noted throughout the sigmoid colon. No stenotic lesion, mucosal thickening or adjacent fat stranding is noted to suggest diverticulitis. Nondistended appendix. Aorta: Atherosclerotic calcifications are seen in the aorta and its branches. The aorta is normal in caliber. Abdominal wall: Normal. Pelvic organs/viscera: Lobulated lesion in the right pelvis measuring 6.5 x 5.8 cm. Additional lobulated lesion more anteriorly in the left hemipelvis measuring 5.4 x 4.3 cm with small calcifications. Pelvic lymphadenopathy: None. Osseous structures: Degenerative change of the visualized spine is noted. IMPRESSION: 1. Large lobulated soft tissue lesions in the pelvis, one of which contains small calcifications. Findings likely represent pedunculated uterine leiomyomata. Consider ultrasound for confirmation. 2. Small nodular densities in the right lung base measuring up to [address] of the chest. 3. Other chronic findings including colonic diverticulosis and a small hiatal hernia. Report Dictated on Final Dictating Physician: MD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 LEFT: AUGUST 11, 2020 - 2D digital mammography and tomosynthesis imaging were performed and reviewed with CAD. ASSESSMENT: Category 2 Benign (Overall) RECOMMENDATION: Routine screening mammogram of both breasts in 1 year. . Report Dictated on --- Final --- Signed Date and Time: 08/11/2020 11:02 am Signed by: MD MARINA, CRISTI LAGUNA Work Phone: Jase Gagnon Incoming Radiology Results From [facility] - 08/11/2020 12:26 PM EDT Patient Name: JOHANNA NOBLE Mammography ACCESSION EXAM DATE/TIME PROCEDURE ORDERING PROVIDER [id number] 08/11/2020 09:24 EDT MG Breast Tomosynthesis DO BARTON PAUL E. BI CPT code 13376 81962 Reason For Exam (MG Breast Tomosynthesis BI) breast mass Report TIME SINCE LAST MAMMOGRAM: Last mammogram was performed 1 year and 10 months ago. REASON FOR EXAM: clinical finding. INDICATED PROBLEM: Indicated problem(s): left breast palpable abnormality. PROCEDURE: MG BREAST TOMOSYNTHESIS BL: AUGUST 11, 2020 - 2D/3D Procedure 3D views: Bilateral MLO and CC view(s) were taken. 2D views: Bilateral MLO and CC view(s) were taken. TISSUE DENSITY: BIRADS B - There are scattered fibroglandular densities. . FINDINGS: Patient's physician reports an area of palpable concern in the left breast. Within the cc view of the left breast there was an area of asymmetry questioned laterally. It did not persist with additional views. There are bilateral masses which are largely stable. There are no new suspicious masses, calcifications, or areas of distortion noted. The patient went on for ultrasound evaluation in the area indicated by the patient's physician. Sonographic images of the left breast at the 2:00 position as indicated by the physician demonstrate no sonographic abnormality. There is an incidental benign mass identified at the 2:30 position 2 sunrise the nipple. This is benign as it has been mammographically stable for numerous years. Images of the left axilla demonstrate no adenopathy. IMPRESSION: No suspicious findings are seen at the site of palpable concern. Clinical follow-up is recommended. Mammography Report Redemonstration of a benign mass. Its long-term stability requires no further evaluation. Markings on images: BB's = Nipples; skin lesions Open [place] = Palpable Line = Scar US BREAST LIMITED LEFT: AUGUST 11, 2020 - 2D digital mammography and tomosynthesis imaging were performed and reviewed with CAD. ASSESSMENT: Category 2 Benign (Overall) RECOMMENDATION: Routine screening mammogram of both breasts in 1 year. . Report Dictated on --- Final --- Signed Date and Time: 08/11/2020 11:02 am Signed by: MD GRAY TOM A [facility] Work Phone: [facility] Work Phone: MG Cancer Risk SurveyOrdered By: Rj Barton on 08-11-2020 Patient Name: JOHANNA MOY Mammography ACCESSION EXAM DATE/TIME PROCEDURE ORDERING PROVIDER [id number] 08/11/2020 09:24 EDT MG Cancer Risk Survey DO BARTON PAUL E. 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 Lifetime breast cancer risk: 11.62% - If greater than or equal to 20%, consider annual mammogram and annual screening Breast MRI or follow up in high risk clinic. Is the patient at elevated risk based on the HBOC criteria? No (Hereditary Breast and Ovarian Cancer) - If yes, consider genetic counseling and testing with high risk follow up. HNPCC mutation risk (Ayala Syndrome): 1% - if greater than or equal to 5%, consider genetic counseling, testing and screening colonoscopy. Report Dictated on --- Final --- Dictated: 08/11/2020 9:39 am Dictating Physician: MD GRAY TOM A Signed Date and Time: 08/11/2020 9:39 am Signed by: MD GRAY TOM A [facility] Work Phone: Kalin, Jase Incoming Radiology Results From [facility] - 08/11/2020 9:40 AM EDT Patient Name: JOHANNA NOBLE Mammography ACCESSION EXAM DATE/TIME PROCEDURE ORDERING PROVIDER [id number] 08/11/2020 09:24 EDT MG Cancer Risk Survey DO BARTON PAUL E. 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 Lifetime breast cancer risk: 11.62% - If greater than or equal to 20%, consider annual mammogram and annual screening Breast MRI or follow up in high risk clinic. Is the patient at elevated risk based on the HBOC criteria? No (Hereditary Breast and Ovarian Cancer) - If yes, consider genetic counseling and testing with high risk follow up. HNPCC mutation risk (Ayala Syndrome): 1% - if greater than or equal to 5%, consider genetic counseling, testing and screening colonoscopy. Report Dictated on --- Final --- Dictated: 08/11/2020 9:39 am Dictating Physician: MD GRAY TOM A Signed Date and Time: 08/11/2020 9:39 am Signed by: MD GRAY TOM A [facility] Work Phone: [facility] Work Phone: US BREAST LIMITED LEFTOrdere d By: Rj Barton on 08-11-2020 Patient Name: JOHANNA MOY Ultrasound ACCESSION EXAM DATE/TIME PROCEDURE ORDERING PROVIDER [id number] 08/11/2020 10:15 EDT US Breast Limited Left DO BARTON PAUL E. CPT code 46752 Reason For Exam (US Breast Limited Left) . Report TIME SINCE LAST MAMMOGRAM: Last mammogram was performed 1 year and 10 months ago. REASON FOR EXAM: clinical finding. INDICATED PROBLEM: Indicated problem(s): left breast palpable abnormality. PROCEDURE: MG BREAST TOMOSYNTHESIS BL: AUGUST 11, 2020 - 2D/3D Procedure 3D views: Bilateral MLO and CC view(s) were taken. 2D views: Bilateral MLO and CC view(s) were taken. TISSUE DENSITY: BIRADS B - There are scattered fibroglandular densities. . FINDINGS: Patient's physician reports an area of palpable concern in the left breast. Within the cc view of the left breast there was an area of asymmetry questioned laterally. It did not persist with additional views. There are bilateral masses which are largely stable. There are no new suspicious masses, calcifications, or areas of distortion noted. The patient went on for ultrasound evaluation in the area indicated by the patient's physician. Sonographic images of the left breast at the 2:00 position as indicated by the physician demonstrate no sonographic abnormality. There is an incidental benign mass identified at the 2:30 position 2 sunrise the nipple. This is benign as it has been mammographically stable for numerous years. Images of the left axilla demonstrate no adenopathy. IMPRESSION: No suspicious findings are seen at the site of palpable concern. Clinical follow-up is recommended. Redemonstration of a benign mass. Its long-term stability requires no further evaluation. Ultrasound Report Markings on images: BB's = Nipples; skin lesions Open [place] = Palpable Line = Scar US BREAST LIMITED LEFT: AUGUST 11, 2020 - 2D digital mammography and tomosynthesis imaging were performed and reviewed with CAD. ASSESSMENT: Category 2 Benign (Overall) RECOMMENDATION: Routine screening mammogram of both breasts in 1 year. . Report Dictated on --- Final --- Signed Date and Time: 08/11/2020 11:02 am Signed by: MD MARINA, CRISTI LAGUNA Work Phone: Kalin, Jase Incoming Radiology Results From [facility] - 08/11/2020 12:26 PM EDT Patient Name: JOHANNA NOBLE Ultrasound ACCESSION EXAM DATE/TIME PROCEDURE ORDERING PROVIDER [id number] 08/11/2020 10:15 EDT US Breast Limited Left DO BARTON PAUL E. CPT code 65512 Reason For Exam (US Breast Limited Left) . Report TIME SINCE LAST MAMMOGRAM: Last mammogram was performed 1 year and 10 months ago. REASON FOR EXAM: clinical finding. INDICATED PROBLEM: Indicated problem(s): left breast palpable abnormality. PROCEDURE: MG BREAST TOMOSYNTHESIS BL: AUGUST 11, 2020 - 2D/3D Procedure 3D views: Bilateral MLO and CC view(s) were taken. 2D views: Bilateral MLO and CC view(s) were taken. TISSUE DENSITY: BIRADS B - There are scattered fibroglandular densities. . FINDINGS: Patient's physician reports an area of palpable concern in the left breast. Within the cc view of the left breast there was an area of asymmetry questioned laterally. It did not persist with additional views. There are bilateral masses which are largely stable. There are no new suspicious masses, calcifications, or areas of distortion noted. The patient went on for ultrasound evaluation in the area indicated by the patient's physician. Sonographic images of the left breast at the 2:00 position as indicated by the physician demonstrate no sonographic abnormality. There is an incidental benign mass identified at the 2:30 position 2 sunrise the nipple. This is benign as it has been mammographically stable for numerous years. Images of the left axilla demonstrate no adenopathy. IMPRESSION: No suspicious findings are seen at the site of palpable concern. Clinical follow-up is recommended. Redemonstration of a benign mass. Its long-term stability requires no further evaluation. Ultrasound Report Markings on images: BB's = Nipples; skin lesions Open [place] = Palpable Line = Scar US BREAST LIMITED LEFT: AUGUST 11, 2020 - 2D digital mammography and tomosynthesis imaging were performed and reviewed with CAD. ASSESSMENT: Category 2 Benign (Overall) RECOMMENDATION: Routine screening mammogram of both breasts in 1 year. . Report Dictated on --- Final --- Signed Date and Time: 08/11/2020 11:02 am Signed by: MD MARINA, CRISTI Toscano [facility] Work Phone: [id number] Work Phone: CBC Auto Differentialon 04-0 Absolute Baso # 0.0 10*3/uL 0.0 - 0.2 10*3/uL [employer] Work Phone: Absolute Neut # 4.0 10*3/uL 1.8 - 7.0 10*3/uL [employer] Work Phone: Basophils/100 WBC (Bld) 0.6 % 0.0 - 2.0 % [employer] Work Phone: Eosinophils (Bld) [#/Vol] 0.2 10*3/uL 0.0 - 0.5 10*3/uL [employer] Work Phone: Eosinophils/100 WBC (Bld) 2.6 % 1.0 - 6.0 % [facility] Work Phone: Erythrocyte distribution width (RBC) [Ratio] 13.1 % 11.5 - 14.5 % [employer] Work Phone: [phone] Granulocytes/100 WBC (Bld) 59.9 % 40.0 - 80.0 % [employer] Work Phone: [phone] Hematocrit (Bld) [Volume fraction] 40.5 % 35.0 - 47.0 % [employer] Work Phone: [phone] Hemoglobin (Bld) [Mass/Vol] 13.4 g/dL 11.7 - 16.0 g/dL [employer] Work Phone: [phone] Interpretation and review of laboratory results Abnormal [facility] Work Phone: [phone] Lymphocytes (Bld) [#/Vol] 2.1 10*3/uL 1.0 - 4.3 10*3/uL [facility] Work Phone: [phone] Lymphocytes/100 WBC (Bld) 31.5 % 20.0 - 40.0 % [facility] Work Phone: [phone] MCH (RBC) [Entitic mass] 26.0 pg 26. 0 - 34.0 pg [employer] Work Phone: [phone] MCHC (RBC) [Mass/Vol] 33.0 % 32.0 - 36.0 % [facility] Work Phone: [phone] MCV (RBC) [Entitic vol] 78.8 fL Low 79.0 - 98.0 fL [facility] Work Phone: [phone] Monocytes (Bld) [#/Vol] 0.4 10*3/uL 0.0 - 0.8 10*3/uL [employer] Work Phone: [phone] Monocytes/100 WBC (Bld) 5.4 % 2.0 - 10.0 % [employer] Work Phone: [phone] Platelet mean volume (Bld) [Entitic vol] 9.4 fL 7.4 - 10.4 fL [employer] Work Phone: [phone] Platelets (Bld) [#/Vol] 235 10*3/uL 140 - 440 10*3/uL [employer] Work Phone: [phone] RBC (Bld) [#/Vol] 5.14 10*6/uL 3.80 - 5.20 10*6/uL [facility] Work Phone: WBC (Bld) [#/Vol] 6.6 10*3/uL 3.6 - 10.7 10*3/uL [facility] Work Phone: Test Performed by [facility], [address] , [place], [place] [address] [facility] Work Phone: Glucoseon 06-24-2020 Glucose [Mass/Vol] 102 mg/dL High 70 - 100 mg/dL [facility] Work Phone: Lipid Panelon 06-24-2020 Cholesterol [Mass/Vol] 239 mg/dL Abnormal <200 [facility] Work Phone: [phone] Cholesterol in HDL [Mass/Vol] 33 mg/dL Low 40 - 60 mg/dL [facility] Work Phone: [phone] Cholesterol in LDL [Mass/Vol] 163 mg/dL Abnormal <100 [facility] Work Phone: [phone] Cholesterol.total/Choles terol in HDL [Mass ratio] 7 {ratio} [facility] Work Phone: Comment on above: Ref Range: < 3 Low Risk for CHD 3-6 Mod Risk for CHD > 6 High Risk for CHD Triglyceride [Mass/Vol] 217 mg/dL Abnormal <150 [facility] Work Phone: Otheron 06-24-2020 Interpretation and review of laboratory results Abnormal [facility] Work Phone: [phone] Test Performed by [facility], [address] , [place] [address] [facility] Work Phone: T3on 06-24-2020 T3, Total 158 ng/dL 97 - 169 ng/dL [facility] Work Phone: Test Performed by [facility], [address] [place], [place] [address] [facility] Work Phone: T4on 06-24-2020 T4 [Mass/Vol] 9.2 ug/dL 5.5 - 11.0 ug/dL [facility] Work Phone: Test Performed by [facility], [address] , [place], [place] [address] [facility] Work Phone: TSH without Reflexon 021 TSH Qn 1.213 u[IU]/mL 0.465 - 4.680 u[IU]/mL [facility] Work Phone: Test Performed by [employer] [facility], [address] , [place], [place] [address] [facility] Work Phone: Vital Signs Date Time Vital Sign Value Performing Clinician Faci lity 01-15-2022 15:45-0400 Body temperature 97.2 [degF] Luis Fernando Webster MD Work Phone: [facility] 01-15-2022 15:45-0400 Diastolic blood pressure 83 mm[Hg] Luis Fernando Webster MD Work Phone: [facility] 01-15-2022 15:45-0400 Heart rate 86 /min Luis Fernando Webster MD Work Phone: [facility] 01-15-2022 15:45-0400 Respiratory rate 18 /min Luis Fernando Webster MD Work Phone: [facility] 01-15-2022 15:45-0400 SaO2% (BldA) [Mass fraction] 99 % Luis Fernando Webster MD Work Phone: [facility] 01-15-2022 15:45-0400 Systolic blood pressure 124 mm[Hg] Luis Fernando Webster MD Work Phone: [facility] 01-15-2022 10:58-0400 Body height 176.5 cm Luis Fernando Webster MD Work Phone: [facility] 01-15-2022 10:58-0400 Body mass index (BMI) [Ratio] 28.38 kg/m2 Luis Fernando Webster MD Work Phone: [facility] 01-15-2022 10:58-0400 Body weight 88.45 kg Luis Fernando Webster MD Work Phone: [facility] 01-11-2022 09:10-0400 Body height 176.5 cm Luis Fernando Webster MD Work Phone: [facility] 01-11-2022 09:10-0400 Body mass index (BMI) [Ratio] 28.09 kg/m2 Luis Fernando Webster MD Work Phone: [facility] 01-11-2022 09:10-0400 Body temperature 97.9 [degF] Luis Fernando Webster MD Work Phone: [facility] 01-11-2022 09:10-0400 Body weight 87.54 kg Luis Fernando Webster MD Work Phone: [facility] 01-11-2022 09:10-0400 Diastolic blood pressure 76 mm[Hg] Luis Fernando Webster MD Work Phone: [facility] 01-11-2022 09:10-0400 Heart rate 76 /min Luis Fernando Webster MD Work Phone: [facility] 01-11-2022 09:10-0400 Respiratory rate 20 /min Luis Fernando Webster MD Work Phone: [facility] 01-11-2022 09:10-0400 SaO2% (BldA) [Mass fraction] 99 % Luis Fernando Webster MD Work Phone: [facility] 01-11-2022 09:10-0400 Systolic blood pressure 104 mm[Hg] Luis Fernando Webster MD Work Phone: [facility] Encounters Encounter Date Encounter Type Care Provider Facility Start: 05-22-2024 End: 05-22-[address] Bubba Solorzano MD Work Phone: [facility] Work Phone: Start: 05-22-2024 End: 05-22-[address] Bubba Solorzano MD -Laboratory Work Phone: Start: 05-22-2024 End: 05-22-2024 ambulatory Bubba Solorzano Facility:[facility] Start: 12-05-2023 ambulatory [facility] Facilit y:[facility] Start: 12-05-2023 End: 12-05-2023 ambulatory [facility] Facility:[facility] Start: 12-01-2023 End: 12-01-2023 ambulatory [facility] Facility[facility] Start: 11-26-2023 End: 11-26-2023 ambulatory [facility] Facility:[facility] Start: 11-21-2023 End: 11-21-2023 ambulatory [facility] Facility:[facility] Start: 09-13-2023 End: 09-13-2023 ambulatory [facility] Facility:[facility] Start: 05-31-2023 End: 05-31-2023 ambulatory [facility] Work Phone: Start: 05-31-2023 End: 05-31-2023 Patient encounter procedure [facility] Work Phone: Start: 03-04-2023 End: 03-04-2023 ambulatory [facility] Work Phone: Start: 03-04-2023 End: 03-04-2023 Patient encounter procedure [facility] Work Phone: Start: 01-29-2023 End: 01-29-2023 ambulatory [facility] Work Phone: Start: 01-29-2023 End: 01-29-[address] [facility] Start: 01-02-2023 End: 01-02-[address] [facility] Start: 12-12-2022 End: 12-12-2022 ambulatory [facility] Work Phone: Start: 12-12-2022 End: 12-12-2022 Patient encounter procedure [facility] Scan, [facility] Work Phone: Start: 11-12-2022 End: 11-12-2022 ambulatory [facility] Work Phone: Start: 11-12-2022 End: 11-12-2022 Patient encounter procedure [facility] Start: 10-25-2022 End: 10-25-2022 ambulatory [facility] Work Phone: Start: 10-25-2022 End: 10-25-2022 Patient encounter procedure [facility] Work Phone: Start: 10-04-2022 End: 10-04-2022 ambulatory [facility] Work Phone: Start: 10-04-2022 End: 10-04-2022 Patient encounter procedure [facility] Start: 03-04-2022 End: 03-04-2022 ambulatory [facility]REG[facility] Start: 02-20-2022 End: 02-20-2022 ambulatory WIL WATKINS [facility] Start: 01-31-2022 End: 01-31-2022 ambulatory BELEN KHALIL [facility] Start: 01-15-2022 End: 01-15-2022 ambulatory RJ BARTON [facility] Start: 01-15-2022 End: 01-15-2022 Subsequent hospital visit by physician Luis Fernando Webster MD Work Phone: [facility] General Surgery Comment on above: Post-op pain (Primar y Dx) Start: 01-11-2022 ambulatory [facility] Start: 01-11-2022 Encounter for other preprocedural examination Luis Fernando Webster [facility] Start: 01-11-2022 End: 01-11-2022 Patient encounter status Luis Fernando Webster MD Work Phone: [facility] Start: 01-11-2022 End: 01-11-2022 Subsequent hospital visit by physician Luis Fernando Webster MD Work Phone: [facility] Comment on above: Pre-op testing (Prim constance Dx) Start: 11-23-2021 End: 11-23-2021 Subsequent hospital visit by physician Rj Barton DO Work Phone: [facility] Comment on above: Abdominal mass, unsp ecified abdominal location Start: 11-03-2021 End: 11-03-2021 Subsequent hospital visit by physician Rj Barton DO Work Phone: [facility] Laboratory Comment on above: Elevated liver enzym es Start: 09-22-2021 End: 09-22-2021 Patient encounter status Rj Barton DO Work Phone: [facility] Start: 09-22-2021 End: 09-22-2021 Subsequent hospital visit by physician Rj Barton DO Work Phone: [facility] Laboratory Comment on above: Hypercholesterolemia ; Adult general medical exam Start: 06-09-2021 End: 06-09-2021 Subsequent hospital visit by physician Marychuy Witt [employer] 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 Work 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: [facility] Comment on above: Hypercholesterolemia Start: 01-27-2021 End: 01-27-2021 Subsequent hospital visit by physician Rj Barton DO Work Phone: [facility] Comment on above: Hypercholesterolemia Start: 09-18-2020 End: 09-18-2020 Subsequent hospital visit by physician Rj Barton DO Work Phone: [facility] Comment on above: Hypercholesterolemia Start: 08-11-2020 End: 08-11-2020 Subsequent hospital visit by physician Rj Barton DO Work Phone: [facility] Comment on above: Breast density Start: 06-30-2020 End: 06-30-2020 Subsequent hospital visit by physician Rj Barton Work Phone: [facility] Comment on above: Right carotid bruit Start: 06-24-2020 End: 06-24-2020 Subsequent hospital visit by physician Rj Barton Work Phone: [facility] Comment on above: Adult general medica l exam; Fatigue, unspecified type Procedures Date Procedure Procedure Detail Performing Clinician Start: 03-04-2023 CT of chest without contrast Start: 12-12-2022 Computed tomography of abdomen and pelvis with contrast Start: 11-12-2022 Positron emission to mography with computed tomography Start: 10-25-2022 CT of chest Start: 10-25-2022 Screening mammography Start: 03-04-2022 Follow-up visit Follow-up [facility] Start: 11-03-2021 Transferase aspartat e amino ast sgot Rj Barton DO Work Phone: Start: 09-22-2021 Glucose quantitative blood xcpt reagent strip Rj Barton DO Work Phone: Start: 09-22-2021 Lipid panel Rj fergusono DO Work Phone: Start: 06-09-2021 Lipid panel 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 Work Phone: Start: 06-09-2021 Transferase aspartat e amino ast sgot Marychuy Ayala 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 Work Phone: Start: 01-27-2021 Lipid panel Rj fergusono DO Work Phone: Start: 01-27-2021 Transferase aspartat e amino ast sgot Rj Nelosno DO Work Phone: Start: 09-18-2020 Lipid panel Rj fergusono DO Work Phone: Start: 09-18-2020 Transferase aspartat e amino ast sgot Rj Barton DO Work Phone: Start: 08-11-2020 Us breast uni real t ellie with image limited Rj Barton DO Work Phone: Start: 08-11-2020 Diagnostic mammograp hy computer-aided detcj bi Rj Barton DO Work Phone: Start: 08-11-2020 MG CANCER RISK SURVEY P aubrain Barton DO Work Phone: Start: 06-24-2020 Assay of thyroid sti mulating hormone tsh Rj Barton Work Phone: Start: 06-24-2020 Assay of thyroxine total Rj Nelsonmadalyn Work Phone: Start: 06-24-2020 Assay of triiodothyr onine t3 total tt3 Rj Dowling Holly Work Phone: Start: 06-24-2020 Blood count complete auto&auto difrntl wbc Rj Freireradha Work Phone: Start: 06-24-2020 Glucose quantitative blood xcpt reagent strip Rj Dowling Holly Work Phone: Start: 06-24-2020 Lipid panel Rj fergusono Work Phone: Plan of Treatment Date Care [...] Hepatitis C screening Hepatitis C sc reen [facility] Comment on above: Postponed from 05/21 (Patient Refused) Postponed from 05/21 (Patient Refused) Start: 05-25-2022 Influenza vaccination Flu vaccine (# 1) [facility] Comment on above: Postponed from 11/22 (Patient Refused) Start: 01-27-2022 Lipid panel Lipid screen [facility] Start: 01-15-2022 Subsequent hospital visit by physician 01/15/2022 Hospital Encounter General Surgery Luis Fernando Webster MD [address] [place] [address] Wil Watkins DO [address] [place] [address] [facility] Start: 11-29-2021 End: 11-29-2021 Patient encounter procedure 11/29/2021 Office Visit Family Medicine Rj Barton DO [address] [place] [address] [facility] Start: 11-22-2021 Influenza vaccination Flu vaccine (# 1) [facility] Start: 11-03-2021 COVID-19 Vaccine (5 - Booster for Moderna series) COVID-19 Vaccine (5 - Booster for Moderna series) [facility] Start: 11-01-2021 End: 11-01-2021 Patient encounter procedure 11/01/2021 Office Visit Family Medicine Rj Barton DO [address] [place] [address] [facility] Start: 10-22-2021 Influenza vaccination Flu vaccine (# 1) [facility] Start: 10-19-2021 End: 10-19-2021 Patient encounter procedure 10/19/2021 Appointment Radiology Rj Barton, [address], [place] [id number] [facility] Start: 09-29-2021 Diabetes screen Diabetes screen [facility] Start: 09-18-2021 Lipid panel Lipid screen [facility] Work Phone: Start: 06-24-2021 Lipid panel Lipid screen [facility] Work Phone: Start: 06-20-2021 Depression Screen Depression Screen [facility] Start: 02-08-2021 Influenza vaccination Flu vaccine (# 1) [facility] Comment on above: Postponed from 11/22 (Ill Today) Start: 11-22-2020 Influenza vaccination Flu vacc ine (Season Ended) [facility] Work Phone: Start: 09-29-2020 Screening for malign ant neoplasm of breast Breast cancer screen [facility] Work Phone: Start: 07-18-2020 End: 07-18-2020 Office Visit 07/18/2020 Office Visit [facility] Rj Barton, [address], [place] [id number] [facility] Start: 06-30-2020 End: 06-30-2020 Appointment 06/30/2020 Appointment Vascular Lab [facility] Start: 10-06-2018 Screening for malign ant neoplasm of colon [facility] Start: 11-04-2017 Screening for malign ant neoplasm of lung Low dose CT lung screening [facility] Start: 2017 Screening for malign ant neoplasm of lung Low dose CT lung screening [facility] Start: 2017 Shingles Vaccine (1 of 2) Shingles Vaccine (1 of 2) [facility] Start: 2012 Screening for malign ant neoplasm of colon [facility] Start: 1986 DTaP/Tdap/Td vaccine (1 - Tdap) DTaP/Tdap/Td vaccine (1 - Tdap) [facility] Start: 1983 COVID-19 Vaccine (1) COVID-19 Vaccin e (1) [facility] Work Phone: Start: 1982 HIV screening HIV screen [facility] Start: 1979 COVID-19 Vaccine (1) COVID-19 Vaccin e (1) [facility] Work Phone: Start: 1967 Hepatitis C screening Hepatitis C sc reen [facility] Blood glucose - POCT Blood gluco se - POCT Point of Care Testing STAT As Needed until discontinued starting 01/15/2022 [facility] Work Phone: Comment on above: As Needed until disc ontinued starting 01/15/2022 End: 01-15-2022 Creatinine [Mass/volume] in Serum or Plasma Creatinine, serum Lab STAT One Time for 1 Occurrences starting 01/15/2022 until 01/15/2022 [facility] Work Phone: Comment on above: One Time for 1 Occur rences starting 01/15/2022 until 01/15/2022 End: 11-23-2021 CT Abdomen and Pelvis W contrast IV [facility] Work Phone: Comment on above: Once for 1 Occurrenc es starting 11/23/2021 until 11/23/2021 End: 09-22-2021 Glucose [Mass/volume] in Serum or Plasma Glucose Lab Routine Adult general medical exam 1 Occurrences starting 09/22/2021 until 09/22/2021 [facility] Work Phone: Comment on above: 1 Occurrences starti ng 09/22/2021 until 09/22/2021 End: 01-15-2022 INITIATE PACU OXYGEN THERAPY PROTOCOL Initiate PACU Oxygen Therapy Protocol Respiratory Care Routine Continuous until discontinued starting 01/15/2022 [facility] Work Phone: Comment on above: Continuous until dis continued starting 01/15/2022 End: 01-15-2022 Intermittent pulse oximetry Pulse Oximetry Spot Check Respiratory Care Routine One Time for 1 Occurrences starting 01/15/2022 until 01/15/2022 [facility] Work Phone: Comment on above: One Time for 1 Occur rences starting 01/15/2022 until 01/15/2022 Nasal Cannula Oxygen Nasal Cannu la Oxygen Respiratory Care Routine As Needed until discontinued starting 01/15/2022 [facility] Work Phone: Comment on above: As Needed until disc ontinued starting 01/15/2022 Nasal Cannula Oxygen Nasal Cannu la Oxygen Respiratory Care Routine As Needed until discontinued starting 01/15/2022 [facility] Work Phone: Comment on above: As Needed until disc ontinued starting 01/15/2022 Nonrebreather mask oxygen Nonrebreather mask oxygen Respiratory Care Routine As Needed until discontinued starting 01/15/2022 [facility] Work Phone: Comment on above: As Needed until disc ontinued starting 01/15/2022 Nonrebreather mask oxygen Nonrebreather mask oxygen Respiratory Care Routine As Needed until discontinued starting 01/15/2022 [facility] Work Phone: Comment on above: As Needed until disc ontinued starting 01/15/2022 Oxygen therapy [[facility] Data Set] Initiate Oxygen Therapy Protocol Respiratory Care Routine As Needed until discontinued starting 01/15/2022 [facility] Work Phone: Comment on above: As Needed until disc ontinued starting 01/15/2022 End: 01-15-2022 Potassium w/ Reflex to Magnesium Potassium w/ Reflex to Magnesium Lab Routine One Time for 1 Occurrences starting 01/15/2022 until 01/15/2022 [facility] Work Phone: Comment on above: One Time for 1 Occur rences starting 01/15/2022 until 01/15/2022 End: 01-15-2022 , urine POCT , urine POCT Point of Care Testing Routine One Time for 1 Occurrences starting 01/15/2022 until 01/15/2022 [facility] Work Phone: Comment on above: One Time for 1 Occur rences starting 01/15/2022 until 01/15/2022 End: 01-15-2022 Protime-INR Protime-INR Lab STAT One Time for 1 Occurrences starting 01/15/2022 until 01/15/2022 [facility] Work Phone: Comment on above: One Time for 1 Occur rences starting 01/15/2022 until 01/15/2022 Spirometry panel Incentive ting metry Respiratory Care Routine Q1H PRN until discontinued starting 01/15/2022 [facility] Work Phone: Comment on above: Q1H PRN until discon tinued starting 01/15/2022 End: 06-30-2020 VL DUP CAROTID BILATERAL VL DUP CAROTID BILATERAL Imaging Routine Right carotid bruit 1 Occurrences starting 06/30/2020 until 06/30/2020 [facility] Work Phone: Comment on above: 1 Occurrences starti ng 06/30/2020 until 06/30/2020 VL DUP CAROTID BILATERAL VL DUP CAROTID BILATERAL Imaging Routine Right carotid bruit 06/30/2020 3:19 PM EDT [facility] Work Phone: Immunizations Immunization Date Immunization Notes [facility] COVID-19, MODERNA BL UE border, Primary or Immunocompromised, (age 12y+), IM, 100 mcg/0.5mL Rj Barton DO Work Phone: [facility] 04-14-2021 COVID-19, Moderna, Primary or Immunocompromised, PF, 100mcg/0.5mL Marychuy Ayala 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 Work Phone: [facility] Work Phone: 09-05-2020 COVID-19, Moderna, Primary or Immunocompromised, PF, 100mcg/0.5mL Marychuy Tokie 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 1967 Unknown [id number] [id number]. [id number] 1967 Unknown [id number] [id number]. [id number] Unknown Unknown [id number] 2.16.8 [id number] Unknown [id number] 2.16.8 [id number] Unknown [id number] 2.16.8 [id number] Unknown [id number] 2.16.8 [id number] Unknown [id number] 2.16.8 [id number] Unknown [id number] [id number] [id number] Unknown [id number] [id number] [id number] Social History Date Type Detail Facility Start: 06-22-2020 End: 12-01-2023 Tobacco smoking status [facility] Former smoker [facility] Start: 12-03-1990 End: 08-16-2016 History of tobacco use Current smoker [facility] Work Phone: Start: 12-03-1990 End: 08-16-2016 History of tobacco use Cigarette Smoker [facility] Work Phone: Start: 06-22-2020 End: 01-15-2022 Cigarettes smoked current (pack per day) - Reported [facility] Work Phone: Start: 06-22-2020 End: 12-05-2021 Tobacco use and exposure Never used [facility] Work Phone: Start: 06-22-2020 End: 01-15-2022 Alcohol intake Current drinker of alcohol (finding) [facility] Work Phone: Start: 09-07-2018 History SDOH Alcohol Frequency 2 [facility] Work Phone: Start: 09-07-2018 End: 05-25-2021 History SDOH Alcohol Std Drinks 1 [facility] Work Phone: Start: 09-07-2018 History SDOH Social Connections Phone 5 [facility] Work Phone: Start: 09-07-2018 History SDOH Social Connections [employer] Work Phone: Start: 09-07-2018 History SDOH Social Connections Living 3 [facility] Work Phone: Start: 02-04-2017 Alcohol Comment rarely [facility] Work Phone: Start: 1965 Sex Assigned At Not on file [facility] Work Phone: Start: 05-25-2021 History SDOH Financial 4 [facility] Work Phone: Start: 01-01-2022 End: 01-15-2022 Exposure to SARS-CoV-2 (event) Not sure [facility] Work Phone: Start: 05-23-2021 End: 05-23-2021 Tobacco smoking status NHIS Unknown if ever smoked [facility] Start: 1965 Sex Assigned At Female [facility] Start: 06-03-2024 Sex Female (finding) [facility] Goals Date Patient Goal Desired Activity /State Comment on above: Formatting of this n ote might be different from the original. Use all my vacation for vacation Barriers: time constraints Plan for overcoming my barriers: going to just do it Confidence: 10/31 Anticipated Goal Completion Date: 06/2019 Clinical Notes 01-11-2022 to 01-15-2022 Danni Galindo RN - 01/15/2022 3:46 PM EDTDischarge InstructionsAttachmentsNatasha Daily RN - 01/11/2022 9:45 AM EDMark Daily RN - 01/11/2022 9:00 AM EDTDischarge [...] care instructions given to you by your Hand Printed Circuit Board Assembler Oncologist's office at your pre operative visit. Please call the office with questions or concerns and be sure to follow up at your scheduled post operative visit. The following attachments cannot be sent through Care Everywhere.Urethral Sling Surgery: Post-op (Welsh)documented in this encounter [facility] Work Phone: 01-11-2022 History of Presen t illness Narrative Anesthesia here to talk with her JOHANNA IS OK TALKING WITH ANESTHESIA IN [facility]. HER CONCERN IS WITH THE ANESTHESIA AND FEELS OK TALKING TO THEM AT THAT TIME. documented in this encounter [facility] Work Phone: 01-11-2022 Hospital Discharg e laurence Daily RN - 01/11/2022 9:31 AM EDT You may use the free hydraulic hammer operator parking at the main entrance on [address] [place] [address], or the free parking in the [facility] parking deck You may use the parking in the Main deck. Take the level one bridge to the H building and follow the signs for same day surgery. Check in at the desk. You may use the hydraulic hammer operator parking located at the main entrance on [address] [place] [address] and take the H elevator to the [...] your scheduled surgery time. Please bring your [facility] Surgical folder and medication list with you day of surgery. We encourage you to write down any questions you may have for the surgeon, anesthesiologist, or other members of the surgical team and bring it with you the day of surgery. Please bring photo ID and insurance information. The following attachments cannot be sent through Care Everywhere.Oophorectomy: Laparoscopic: Pre-op (Welsh)Oophorectomy: Laparoscopic: Post-op (Welsh)Cystoscopy: Post-op (Welsh)Urethral Sling Surgery: Pre-op (Welsh)Urethral Sling Surgery: Post-op (Welsh)documented in this encounter [facility] Work Phone: Evaluation note Diagnosis Breast density Other sign and symptom in breast documented in this encounter [facility] Work Phone: [...] in this encounter [facility] Work Phone: Evaluation noteNo assessment information available [facility] Work Phone: Reason for referral (narrative)No reason for referral information availableWC[facility] Work Phone: Assessments Diagnosis Adult general medical exam Unspecified general medical examination Fatigue, unspecified type Diagnosis Right carotid bruit Other symptoms involving cardiovascular system Advance Directives Documents on File Type Date Recorded Patient Flavor Room Worker Expl anation ACP-Advance Directive 02/07/2017 2:49 PM Latest Code Status on File Code Status Date Activated Date Inactivated Comments Full Code 02/06/2017 8:25 AM 02/06/2017 6:24 PM Documents on File Type Date Recorded Patient Flavor Room Worker Expl anation ACP-Advance Directive ACP-Advance Directive 02/07/2017 2:49 PM ACP-Power of Labor Relations Specialist Documents on File Type Date Recorded Patient Flavor Room Worker Expl anation ACP-Advance Directive ACP-Advance Directive 02/07/2017 2:49 PM ACP-Power of Labor Relations Specialist Latest Code Status on File Code Status Date Activated Date Inactivated Comments Full Code 02/06/2017 8:25 AM 02/06/2017 6:24 PM Documents on File Type Date Recorded Patient Flavor Room Worker Expl anation ACP-Advance Directive ACP-Power of Labor Relations Specialist ACP-Advance Directive 02/07/2017 2:49 PM Documents on File Type Date Recorded Patient Flavor Room Worker Expl anation ACP-Advance Directive ACP-Power of Labor Relations Specialist ACP-Advance Directive 02/07/2017 2:49 PM Latest Code Status on File Code Status Date Activated Date Inactivated Comments Full Code 01/15/2022 10:55 AM Full Code 02/06/2017 8:25 AM 02/06/2017 6:24 PM Advance Directive Response Recorded Date/ Time Living Will No May 23, 2021 3:40pm Power of Labor Relations Specialist No May 23 2 3:40pm Advance Directive Response Recorded Date/ Time Living Will No May 23, 2021 2:40pm Power of Labor Relations Specialist No May 23 2 2:40pm Reason for Referral Status Reason Specialty Diagnoses / Procedures Referred By Contact Referred To Contact Open Vascular Lab Diagnoses Right carotid bruit Procedures VL DUP CAROTID BILATERAL Rj Barton, DO [address] [place] [address] Status Reason Specialty Diagnoses / Procedures Referre d By Contact Referred To Contact Open Radiology Diagnoses Breast density Procedures US Breast Limited Left Rj Barton, DO [address] [place] [address] Summary Purpose Family History No Family History Records FoundNo Family History Records FoundNo Family History Records FoundNo Family History Records FoundNo Family History Records Found Chief Complaint and Reason for Visit Chief Complaint SCREENING Chief Complaint SCREENING ABNORMAL FINDING OF LUNG FIELD Chief Complaint SCREENING ABNORMAL FINDING OF LUNG FIELD HEPATOMEGALY Chief Complaint LUNG NODULE, HX TOBA PIPE CONNECTOR USE Chief Complaint ABNORMAL FINDING OF LUNG FIELD HEPATOMEGALY LUNG NODULE, HX TOBACCO USE Chief Complaint Admit Date EORDERS May 22, 2024 8:10 am Additional Source Comments Care Teams (unrecognized sec tion and content) Er Nurse Relationship Specialty Start Date End Date Rj Barton, DO [address] [place] [address] PCP - General 08/31/14 Er Nurse Relationship Specialty Start Date End Date Rj Barton, DO [address] [place] [address] PCP - General 08/31/14 Er Nurse Relationship Specialty Start Date End Date Rj Barton, DO [address] [place] [address] PCP - General 08/31/14 Er Nurse Relationship Specialty Start Date End Date Rj Barton DO [address] [place] [address] PCP - General 08/31/14 Er Nurse Relationship Specialty Start Date End Date Rj Barton, DO [address] [place] [address] PCP - General 08/31/14 Er Nurse Relationship Specialty Start Date End Date Rj Barton, DO [address] [place] [address] PCP - General 08/31/14 Er Nurse Relationship Specialty Start Date End Date Rj Barton, DO [address] [place] [address] PCP - General 08/31/14 Team Status: Active Member Role Status Dates Dr. Bubba Solorzano MD Primary Care Provider Active Team Status: Inactive Member Role Status Dates Dr. Bubba Solorzano MD Primary Care Provider, Attend ing Provider Active Team Status: Inactive Member Role Status Dates Dr. Bubba Solorzano MD Primary Care Pr ovider, Attending Provider, Referring Provider Active Team Status: Inactive Member Role Status Dates Dr. Bubba Solorzano MD Primary Care Pr ovider, Attending Provider, Referring Provider Active Dr. Jeremiah Saxena MD Other Provider Active Team Status: Inactive Member Role Status Dates Dr. Bubba Solorzano MD Primary Care Provider Active Start: May 22, 2024 End: May 22, 2024 Dr. Bubba Solorzano MD Attending Provider Active Start: May 22, 2024 End: May 22, 2024 Dr. Bubba Solorzano MD Referring Provider Active Start: May 22, 2024 End: May 22, 2024 INFORMATION SOURCE (unrecogn ized section and content) DATE CREATED AUTHOR 05/23/2021 [facility] DATE CREATED AUTHOR AUTHOR'S ORGANIZ ATION 11/29/2021 [facility] DATE CREATED AUTHOR AUTHOR'S ORGANIZ ATION 01/17/2022 [facility] DATE CREATED AUTHOR AUTHOR'S ORGANIZ ATION 03/15/2022 [facility] DATE CREATED AUTHOR AUTHOR'S ORGANIZ ATION 06/06/2024 [facility] Ordered Prescriptions (unrec ognized section and content) Prescription Sig Dispensed Refills Start Date End Da te lidocaine (XYLOCAINE) 5 % ointment Apply topically as needed; or, 30 minutes prior to intercourse using a cotton tipped applicator 30 g 0 01/15/2022 acetaminophen (TYLENOL) 500 MG tablet Take 1 tablet by mouth 4 times daily as needed for Pain 120 tablet 0 01/15/2022 docusate sodium (COLACE) 100 MG capsule Take 1 capsule by mouth 2 times daily as needed for Constipation 60 capsule 0 01/15/2022 02/14/2022 ibuprofen (ADVIL;MOTRIN) 600 MG tablet Take 1 tablet by mouth every 6 hours as needed for Pain 60 tablet 0 01/15/2022 oxyCODONE (ROXICODONE) 5 MG immediate release tabletIndications:Pos t-op pain Take 1 tablet by mouth every 6 hours as needed for Pain for up to 3 days. Intended supply: 3 days. Take lowest dose possible to manage pain 12 tablet 0 01/15/2022 01/18/2022 Scheduled Active and Recently Administ ered Medications (unrecognized section and content) Medication Order 01/13/2022 01/14/2022 01/15/2022 acetaminophen (TYLENOL) tablet 1,000 mg (COMPLETED) 1,000 mg, Oral, ONCE, 1 dose, On Fri01/15/22 at 1115, Maximum dose of acetaminophen is 4000 mg from all sources in 24 hours. Do not administer if patient has taken tylenol <4 hours earlier. Do not give if contraindicated ie. patient has active liver disease or cirrhosis., Pre-op (day of surgery) 1111 (Given - Provid er: Marychuy Maravilla RN) aprepitant (EMEND) capsule 40 mg (COMPLETED) 40 mg, Oral, ONCE, 1 dose, On Fri01/15/22 at 1115, Pre-op (day of surgery) 1111 (Given - Provid er: Marychuy Maravilla RN) famotidine (PEPCID) tablet 20 mg (COMPLETED) 20 mg, Oral, ONCE, 1 dose, On Fri01/15/22 at 1115, Pre-op (day of surgery) 1111 (Given - Provid er: Marychuy Maravilla RN) gabapentin (NEURONTIN) capsule 100 mg (COMPLETED) 100 mg, Oral, ONCE, 1 dose, On Fri01/15/22 at 1115, For Age >69, or Low GFR, Pre-op (day of surgery) 1111 (Given - Provid er: Marychuy Maravilla RN) sodium chloride flush 0.9 % injection 5-40 mL 5-40 mL, IntraVENous, EVERY 12 HOURS SCHEDULED (2 times per day), First dose on Fri01/15/22 at 1115, Until Discontinued, For Line Patency: Peripheral IV = 5 [...] = 20 mL/lumen, Pre-op (day of surgery) 1115 (Due)2100 (Due) sodium chloride flush 0.9 % injection 5-40 mL 5-40 mL, IntraVENous, EVERY 12 HOURS SCHEDULED (2 times per day), First dose on Fri01/15/22 at 2100, Until Discontinued, For Line Patency: Peripheral IV = 5 [...] Central Line = 20 mL/lumen, PACU only 2100 (Due) Continuous Medication Order 01/13/2022 01/14/2022 01/15/2022 lactated ringers infusion IntraVENous, at 50 mL/hr, CONTINUOUS, Starting on Fri01/15/22 at 1115, Upon admission to sameday - please start iv if patient does not have iv access. Use 500ml NS for patients on dialysis., Pre-op (day of surgery) 1114 (New Bag - Prov ider: Marychuy Maravilla RN) lactated ringers infusion IntraVENous, at 50 mL/hr, CONTINUOUS, Starting on Fri01/15/22 at 1430, PACU only 1438 (New Bag - Prov ider: Danni Galindo RN) PRN Medication Order 01/13/2022 01/14/2022 01/15/2022 0.9 [...] and hydralazine ineffective, notify anesthesiologist. for use Same and
PACU only Group 2: oxyCODONE (ROXICODONE) [...] Pain Severe (7-10)
PHASE II
PACU only Goals (unrecognized section and content) Goals may be documented in a n alternate sectionGoals may be documented in an alternate sectionGoals may be documented in an alternate sectionGoals may be documented in an alternate sectionGoals may be documented in an alternate sectionGoals may be documented in an alternate sectionGoals may be documented in an alternate sectionGoals may be documented in an alternate section FOR RECORDS PERTAINING TO PATIENTS WHO ARE [...] BE BASED ON THE PRIMARY CLINICAL RECORDS. [employer] [facility]. provides no warranty or guarantee of the accuracy or completeness of information in this document.
[2024-10-23 08:02] LABS: Hematocrit 40.9 % (37-47); Hemoglobin 13.6 g/dL (12.0-15.0); Immature Granulocytes Count 0.020 X10^3/uL (0.0-0.0); Mean Corp Hgb Conc 33.3 g/dL (32-36); Mean Corpuscular Volume 81.3 fL (81-99); Mean Platelet Vol. 11.6 fl (6.2-12.0); NRBC Flagged by Analyzer 0 % (0-5); Platelet Count 240 K/mm3 (150-450); RBC Distribution Width CV 12.6 % (11.6-14.6); RBC Distribution Width SD 37.1 fl (35.1-43.9); Red Blood Count 5.03 M/mm3 (4.2-5.4); White Blood Count 5.9 K/mm3 (4.4-11.0)
[2024-10-23 08:43] LABS: AST(SGOT) 21 U/L (<=31); Alanine Aminotransfer ALT/SGPT 25 U/L (<=34); Albumin, Serum 4.1 g/dL (3.5-5.0); Alkaline Phosphatase 120 U/L (35-104); Anion Gap 10 (5-15); BUN 11 mg/dL (4-19); BUN/Creat Ratio 14.2 RATIO (10-20); Calcium,Total 9.5 mg/dL (7.6-11.0); Carbon Dioxide 25.8 mmol/L (21.0-32.0); Chloride 105 mmol/L (98-108); Cholesterol 143 mg/dL (<=200); Globulin 3.4 g/dL (2.2-4.2); Glucose 111 mg/dL (70-99); Low Density Lipoprotein Calc. 78 mg/dL; Potassium 4.5 mmol/L (3.3-5.1); Triglycerides 104 mg/dL; Very Low Density Lipoprotein 21 mg/dL (5-40); cholesterol:hdl ratio screen 3.26
== END | disposition home or self-care (01) ==
LOC: LAB 07:24
PROVIDERS: PCP Family Medicine; Referring Provider Family Medicine; Visit Provider Family Medicine
DX: R53.1 Weakness (principal); I49.9 Cardiac arrhythmia, unspecified
CPT/HCPCS: 36415; 80053; 80061; 85025

== ENCOUNTER → 2024-11-12 | Outpatient (CLI) | payer OTHER, SELFPAY ==
--- NOTE | 2024-11-12 16:55 | CT_ITS ---
PROCEDURE: CHEST WITHOUT CONTRAST 11/12/2024 REASON FOR EXAM: NODULE Follow-up of pulmonary nodule. TECHNIQUE: Chest CT without contrast. Coronal and Sagittal reconstruction series were provided. One or more dose reduction techniques were used (e.g., Automated exposure control, adjustment of the mA and/or kV according to patient size, use of iterative reconstruction technique RADIATION DOSE SUMMARY: CTDlvol: 17.08 mGy DLP: 644.56 mGycm COMPARISON: Prior study dated November 21, 2023. FINDINGS: Hardware: None Lymph nodes: Small benign-appearing mediastinal lymph nodes. Small benign- appearing bilateral axillary lymph nodes. Heart and Vasculature: The heart is not enlarged. Atherosclerotic calcifications of the thoracic aorta. Thoracic aorta and pulmonary arteries have normal contours; noncontrast technique limits evaluation. Coronary Artery Calcifications: Present Lungs and Airways: Stable linear scarring at the lung apices. Stable appearance of a small cluster of tiny nodules in the anterior aspect of the right lower lobe adjacent to the right major fissure. Stable 8.7 mm nodule in the anterior aspect of the right lower lobe as seen on axial image number 91. Pleura: No pleural effusion. Upper Abdomen: Small sliding hiatal hernia. Bones: Degenerative changes of the thoracic spine. CT/Chest without Contrast IMPRESSION: Coronary artery calcification (CAC) is is present Stable examination. 12 month follow-up recommended. Reading Location: [id number]
== END | disposition home or self-care (01) ==
LOC: CT 16:53
PROVIDERS: PCP Family Medicine; Referring Provider Family Medicine; Visit Provider Family Medicine
DX: R91.8 Other nonspecific abnormal finding of lung field (principal)
CPT/HCPCS: 71250

== ENCOUNTER → 2024-11-23 | Outpatient (CLI) | payer OTHER, SELFPAY ==
--- NOTE | 2024-11-23 15:50 | BI_ITS ---
EXAM: SCREENING MAMM (CAD), BILAT DATE: 11/23/2024 CLINICAL HISTORY: F, Age 59 y/o , SCREENING Prior left ultrasound-guided breast biopsy. TECHNIQUE: Procedure Code: [id number] Modality: MG Procedure: SCREENING MAMM (CAD), BILAT COMPARISON: Prior exam(s) dated December 05, 2023 and November 26, 2023.. FINDINGS: TISSUE DENSITY: The breasts are heterogeneously dense, which may obscure small masses. Bilateral Breast Mammographic Findings: No significant masses, calcifications or other abnormalities are identified. Stable 8.1 mm well-defined nodule in the deep central lateral aspect of the left breast. This is unchanged. Stable asymmetry of breast tissue were more breast tissue is seen in the left breast as compared to the right side. No suspicious masses, areas of developing architectural distortion, or suspicious calcifications. There has been no significant interval change. BI/SCREENING MAMM (CAD), BILAT IMPRESSION: Stable bilateral screening mammogram. OVERALL FINAL ASSESSMENT BI-RADS 2: BENIGN RECOMMENDATION: Routine annual follow-up in 1 Year A letter with findings and recommendations will be mailed to the patient. Reading Location: [place] [address]
--- OUTSIDE RECORDS SUMMARY | 2024-11-23 23:32 | XMS RPT_ITS | CCD ---
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 [Mass/Vol] 9.5 mg/dL 7.6-11.0 [facility] Serum or plasma cholesterol in HDL measurement (mass/volume)Ordered By: Bubba Solorzano on 10-23-2024 Cholesterol in HDL [Mass/Vol] 44 mg/dL >40 [facility] Comment on above: National Cholesterol Education Program (NCEP) guidelines:<40 mg/dL: Low HDL-cholesterol (major risk factor for CHD)>= 60 mg/dL: High HDL-cholesterol (negative risk factor for CHD)HDL-cholesterol is affected by a number of factors, e.g. smoking, exercise, hormones, sex and age. Serum or plasma cholesterol measurement (mass/volume)Ordered By: Bubba Solorzano on 10-23-2024 Cholesterol [Mass/Vol] 143 mg/dL <201 [facility] Comment on above: Cholesterol level, D esirable <200 mg/dLBorderline high cholesterol 200-239 mg/dLHigh cholesterol >=240 mg/dLRecommendations of the NCEP Adult Treatment Panel for the following risk-cutoff thresholds for the [place] population. Serum or plasma urea nitroge n measurement (mass/volume)Ordered By: Bubba Solorzano on 10-23-2024 Urea nitrogen [Mass/Vol] 11 mg/dL 4-19 [facility] Sodium levelOrdered By: Bubba Solorzano on 10-23-2024 Sodium [Moles/Vol] 140 mmol/L 133-145 [facility] Total proteinOrdered By: Antonino Solorzano on 10-23-2024 Protein [Mass/Vol] 7.5 g/dL 5.9-8.4 [facility] Triglycerides measurementOrd ered By: Bubba Solorzano on 10-23-2024 Triglyceride [Mass/Vol] 104 mg/dL <199 [facility] Comment on above: The drugs N-Acetylcy steine and Metamizole may falsely depress this assay. Normal range: <150 mg/dLBorderline High: 150-199 mg/dLHigh: 200-499 mg/dLVery High: >500 mg/dL White blood cell (WBC) count Ordered By: Bubba Solorzano on 10-23-2024 WBC (Bld) [#/Vol] 5.9 10*3/uL 4.4-11.0 [facility] Absolute neutrophil countOrd ered By: Bubba Solorzano on 05-22-2024 Neutrophils (Bld) [#/Vol] 3.8 10*3/uL 2.0-7.7 [facility] BUN/creatinine ratioOrdered By: Bubba Solorzano on 05-22-2024 Urea nitrogen/Creatinine [Mass ratio] 14.6 mg/mg 10-20 [facility] Basophil percentageOrdered B y: Bubba Solorzano on 05-22-2024 Basophils/100 WBC (Bld) 1.0 % 0-1 [facility] Bilirubin, totalOrdered By: Bubba Solorzano on 05-22-2024 Bilirubin [Mass/Vol] 0.27 mg/dL 0.00-1.30 [facility] CBC W/Diff, Automatedon Absolute Lymph 2.32 X10 3/uL Normal 0.83-4.51 [facility] Comment on above: Order Comment: Order Date: 10/17/23 Order Info: [id number] - CBCD Performed By: #### L 500.4050, L100.0100, L500.4100 #### [facility] [address] [place], [address] Absolute Neut 3.8 X10 3/uL Normal 2.0-7.7 [facility] Comment on above: Order Comment: Order Date: 10/17/23 Order Info: [id number] - CBCD Performed By: #### L 500.4050, L100.0100, L500.4100 #### [facility] [address] [place], [address] Basophils/100 WBC (Bld) 1.0 % Normal 0-1 [facility] Comment on above: Order Comment: Order Date: 10/17/23 Order Info: [id number] - CBCD Performed By: #### L 500.4050, L100.0100, L500.4100 #### [facility] [address] [place], [address] Eosinophils/100 WBC (Bld) 3.5 % Normal 0-5 [facility] Comment on above: Order Comment: Order Date: 10/17/23 Order Info: [id number] - CBCD Performed By: #### L 500.4050, L100.0100, L500.4100 #### [facility] [address] [place], [address] Erythrocyte distribution width (RBC) [Ratio] 13.0 % Normal 11.6-14.6 [facility] Comment on above: Order Comment: Order Date: 10/17/23 Order Info: [id number] - CBCD Performed By: #### L 500.4050, L100.0100, L500.4100 #### [facility] [address] [place], [address] Hematocrit (Bld) [Volume fraction] 41.5 % Normal 37-47 [facility] Comment on above: Order Comment: Order Date: 10/17/23 Order Info: [id number] - CBCD Performed By: #### L 500.4050, L100.0100, L500.4100 #### [facility] [address] [place], [address] Hemoglobin (Bld) [Mass/Vol] 13.7 g/dL Normal 12.0-15.0 [facility] Comment on above: Order Comment: Order Date: 10/17/23 Order Info: 018- - CBCD Performed By: #### L 500.4050, L100.0100, L500.4100 #### [facility] [address] [place], [address] IG% 0.300 Normal 0.0-0.9 [facility] Comment on above: Order Comment: Order Date: 10/17/23 Order Info: [id number] - CBCD Result Comment: IG% - Immature Granulocytes (promyelocytes, myelocytes and metamyelocytes) > 1% indicates that a LEFT SHIFT is Present. Performed By: #### L 500.4050, L100.0100, L500.4100 #### [facility] [address] [place], [address] Lymphocytes/100 WBC (Bld) 33.6 % Normal 19-41 [facility] Comment on above: Order Comment: Order Date: 10/17/23 Order Info: [id number] - CBCD Performed By: #### L 500.4050, L100.0100, L500.4100 #### [facility] [address] [place], [address] MCH (RBC) [Entitic mass] 27.2 pg Normal 27.0-32.0 [facility] Comment on above: Order Comment: Order Date: 10/17/23 Order Info: [id number]- - CBCD Performed By: #### L 500.4050, L100.0100, L500.4100 #### [facility] [address] [place], [address] MCHC (RBC) [Mass/Vol] 33.0 g/dL Normal 32-36 [facility] Comment on above: Order Comment: Order Date: 10/17/23 Order Info: [id number] - CBCD Performed By: #### L 500.4050, L100.0100, L500.4100 #### [facility] [address] [place], [address] MCV (RBC) [Entitic vol] 82.3 fL Normal 81-99 [facility] Comment on above: Order Comment: Order Date: 10/17/23 Order Info: 018- - CBCD Performed By: #### L 500.4050, L100.0100, L500.4100 #### [facility] [address] [place], [address] Monocytes/100 WBC (Bld) 7.0 % Normal 0-10 [facility] Comment on above: Order Comment: Order Date: 10/17/23 Order Info: 018- - CBCD Performed By: #### L 500.4050, L100.0100, L500.4100 #### [facility] [address] [place], [address] Neutrophils/100 WBC (Bld) 54.6 % Normal 47-70 [facility] Comment on above: Order Comment: Order Date: 10/17/23 Order Info: [id number] - CBCD Performed By: #### L 500.4050, L100.0100, L500.4100 #### [facility] [address] [place], [address] Nucleated RBC (Bld) [#/Vol] 0 10*3/uL Normal 0-5 [facility] Comment on above: Order Comment: Order Date: 10/17/23 Order Info: [id number] - CBCD Performed By: #### L 500.4050, L100.0100, L500.4100 #### [facility] [address] [place], [address] Platelet mean volume (Bld) [Entitic vol] 11.7 fL Normal 6.2-12.0 [facility] Comment on above: Order Comment: Order Date: 10/17/23 Order Info: [id number] - CBCD Performed By: #### L 500.4050, L100.0100, L500.4100 #### [facility] [address] [place], [address] Platelets (Bld) [#/Vol] 224 10*3/uL Normal 150-450 [facility] Comment on above: Order Comment: Order Date: 10/17/23 Order Info: [id number] - CBCD Performed By: #### L 500.4050, L100.0100, L500.4100 #### [facility] [address] [place], [address] RBC (Bld) [#/Vol] 5.04 10*6/uL Normal 4.2-5.4 [facility] Comment on above: Order Comment: Order Date: 10/17/23 Order Info: [id number] - CBCD Performed By: #### L 500.4050, L100.0100, L500.4100 #### [facility] [address] [place], [address] RDW SD 38.5 fl Normal 35.1-43.9 [facility] Comment on above: Order Comment: Order Date: 10/17/23 Order Info: [id number] - CBCD Performed By: #### L 500.4050, L100.0100, L500.4100 #### [facility] [address] [place], [address] WBC (Bld) [#/Vol] 6.9 10*3/uL Normal 4.4-11.0 [facility] Comment on above: Order Comment: Order Date: 10/17/23 Order Info: [id number] - CBCD Performed By: #### L 500.4050, L100.0100, L500.4100 #### [facility] [address] [place], [address] Calculated very low density lipoprotein (VLDL) cholesterol measurementOrdered By: Bubba Solorzano on 05-22-2024 VLDL Cholesterol 14 mg/dL 5-40 [facility] Carbon dioxide measurementOr dered By: Bubba Solorzano on 05-22-2024 CO2 [Moles/Vol] 24.9 mmol/L 22.0-29.0 [facility] Chloride measurementOrdered By: Bubba Solorzano on 05-22-2024 Chloride [Moles/Vol] 107 mmol/L 96-108 [facility] Comprehensive Metabolic Prof ilon 05-22-2024 Albumin [Mass/Vol] 4.1 g/dL Normal 3.5-5.0 [facility] Comment on above: Order Comment: Order Date: 10/17/23Order Info: [id number] - CMPOrder Info: [id number] - LIPID Performed By: #### L 500.4050, L100.0100, L500.4100 ####[facility] [address] [place], [address] Albumin/Globulin [Mass ratio] 1.2 {ratio} Normal 0.9-2.4 [facility] Comment on above: Order Comment: Order Date: 10/17/23Order Info: [id number] - CMPOrder Info: [id number] - LIPID Performed By: #### L 500.4050, L100.0100, L500.4100 ####[facility] [address] [place], [address] ALK PHOS 114 U/L High 35-104 [facility] Comment on above: Order Comment: Order Date: 10/17/23Order Info: [id number] - CMPOrder Info: [id number] - LIPID Performed By: #### L 500.4050, L100.0100, L500.4100 ####[facility] [address], [address] ALT [Catalytic activity/Vol] 26 U/L Normal <=34 [facility] Comment on above: Order Comment: Order Date: 10/17/23Order Info: [id number] - CMPOrder Info: [id number] - LIPID Performed By: #### L 500.4050, L100.0100, L500.4100 ####[facility] [address] [place], [address] Anion gap [Moles/Vol] 11 mmol/L Normal 5-15 [facility] Comment on above: Order Comment: Order Date: 10/17/23Order Info: [id number]- - CMPOrder Info: [id number] - LIPID Performed By: #### L 500.4050, L100.0100, L500.4100 ####[facility] [address] [place], [address] AST [Catalytic activity/Vol] 23 U/L Normal <=31 [facility] Comment on above: Order Comment: Order Date: 10/17/23Order Info: [id number]- - CMPOrder Info: [id number] - LIPID Performed By: #### L 500.4050, L100.0100, L500.4100 ####[facility] [address] [place], [address] Bilirubin [Mass/Vol] 0.27 mg/dL Normal 0.00-1.30 [facility] Comment on above: Order Comment: Order Date: 10/17/23Order Info: [id number] - CMPOrder Info: [id number] - LIPID Performed By: #### L 500.4050, L100.0100, L500.4100 ####[facility] [address] [place], [address] BUN/CRE 14.6 RATIO Normal 10-20 [facility] Comment on above: Order Comment: Order Date: 10/17/23Order Info: [id number] - CMPOrder Info: [id number] - LIPID Performed By: #### L 500.4050, L100.0100, L500.4100 ####[facility] [address] [place], [address] Calcium [Mass/Vol] 9.3 mg/dL Normal 7.6-11.0 [facility] Comment on above: Order Comment: Order Date: 10/17/23Order Info: [id number]- - CMPOrder Info: [id number] - LIPID Performed By: #### L 500.4050, L100.0100, L500.4100 ####[facility] [address] [place], [address] Chloride [Moles/Vol] 107 mmol/L Normal 96-108 [facility] Comment on above: Order Comment: Order Date: 10/17/23Order Info: [id number] - CMPOrder Info: [id number] - LIPID Performed By: #### L 500.4050, L100.0100, L500.4100 ####[facility] [address] [place], [address] CO2 [Moles/Vol] 24.9 mmol/L Normal 22.0-29.0 [facility] Comment on above: Order Comment: Order Date: 10/17/23Order Info: [id number] - CMPOrder Info: [id number] - LIPID Performed By: #### L 500.4050, L100.0100, L500.4100 ####[facility] [address] [place], [address] Creatinine [Mass/Vol] 0.72 mg/dL Normal 0.70-1.20 [facility] Comment on above: Order Comment: Order Date: 10/17/23Order Info: 07 - CMPOrder Info: [id number] - LIPID Performed By: #### L 500.4050, L100.0100, L500.4100 ####[facility] [address] [place], [address] GFR/1.73 sq M.predicted among non-blacks MDRD (S/P/Bld) [Vol rate/Area] 97 mL/min/{1.73_m2} Normal >60 [facility] Comment on above: Order Comment: Order Date: 10/17/23Order Info: 07- - CMPOrder Info: [id number] - LIPID Result Comment: mL/m in/1.73m2 CKD-EPI Creatinine Equation (2020) Performed By: #### L 500.4050, L100.0100, L500.4100 ####[facility] [address] [place], [address] Globulin (S) [Mass/Vol] 3.3 g/dL Normal 2.2-4.2 [facility] Comment on above: Order Comment: Order Date: 10/17/23Order Info: 07 - CMPOrder Info: [id number] - LIPID Performed By: #### L 500.4050, L100.0100, L500.4100 ####[facility] [address] [place], [address] Glucose [Mass/Vol] 98 mg/dL Normal 70-99 [facility] Comment on above: Order Comment: Order Date: 10/17/23Order Info: 07 - CMPOrder Info: [id number] - LIPID Performed By: #### L 500.4050, L100.0100, L500.4100 ####[facility] [address] [place], [address] Potassium [Moles/Vol] 4.0 mmol/L Normal 3.3-5.1 [facility] Comment on above: Order Comment: Order Date: 10/17/23Order Info: 07 - CMPOrder Info: [id number] - LIPID Performed By: #### L 500.4050, L100.0100, L500.4100 ####[facility] [address] [place], [address] Sodium [Moles/Vol] 142 mmol/L Normal 133-145 [facility] Comment on above: Order Comment: Order Date: 10/17/23Order Info: [id number] - CMPOrder Info: [id number] - LIPID Performed By: #### L 500.4050, L100.0100, L500.4100 ####[facility] [address] [place], [address] T PROT 7.5 g/dL Normal 5.9-8.4 [facility] Comment on above: Order Comment: Order Date: 10/17/23Order Info: [id number] - CMPOrder Info: [id number] - LIPID Performed By: #### L 500.4050, L100.0100, L500.4100 ####[facility] [address] [place], [address] Urea nitrogen [Mass/Vol] 11 mg/dL Normal 4-19 [facility] Comment on above: Order Comment: Order Date: 10/17/23Order Info: [id number] - CMPOrder Info: [id number] - LIPID Performed By: #### L 500.4050, L100.0100, L500.4100 ####[facility] [address] [place], [address] Eosinophil percentageOrdered By: Bubba Solorzano on 05-22-2024 Eosinophils/100 WBC (Bld) 3.5 % 0-5 [facility] Erythrocyte distribution wid th ratioOrdered By: Bubba Solorzano on 05-22-2024 Erythrocyte distribution width (RBC) [Ratio] 13.0 % 11.6-14.6 [facility] Erythrocyte distribution wid th standard deviationOrdered By: Bubba Solorzano on 05-22-2024 Erythrocyte distribution width (RBC) [Entitic vol] 38.5 fL 35.1-43.9 [facility] GFR/1.73 sq M.predicted amrita g non-blacks MDRD (S/P/Bld) [Vol rate/Area]Ordered By: Bubba Solorzano on 05-22-2024 Estimated GFR (MDRD) Non-Af Amer 97 >60 [facility] Comment on above: mL/min/1.73m2 CKD-EP I Creatinine Equation (2020) Hematocrit Auto (Bld) [Volum e fraction]Ordered By: Bubba Solorzano on 05-22-2024 Hematocrit (Bld) [Volume fraction] 41.5 % 37-47 [facility] Hemoglobin measurementOrdere d By: Bubba Solorzano on 05-22-2024 Hemoglobin (Bld) [Mass/Vol] 13.7 g/dL 12.0-15.0 [facility] Immature granulocytes/100 WB C Auto (Bld)Ordered By: Bubba Solorzano on 05-22-2024 Immature granulocytes/100 WBC (Bld) 0.300 % 0.0-0.9 [facility] Comment on above: IG% - Immature Granu locytes (promyelocytes, myelocytes and metamyelocytes) > 1% indicates that a LEFT SHIFT is Present. LDL calc ser/plasOrdered By: Bubba Solorzano on 05-22-2024 LDL Cholesterol, Calculated 84 mg/dL [facility] Comment on above: Szhbnneyai=523-082 m g/dL & Higher Znqw=373 mg/dL or greater Laboratory - Chemistry and C hemistry - challengeOrdered By: Bubba Solorzano on 05-22-2024 AST [Catalytic activity/Vol] 23 U/L <32 [facility] Lipid Profileon 05-22-2024 CHOL:HDL 2.91 Normal [facility] Comment on above: Order Comment: Order Date: 10/17/23Order Info: [id number] - CMPOrder Info: [id number] - LIPID Performed By: #### L 500.4050, L100.0100, L500.4100 ####[facility] [address] [place], [place], [address] Cholesterol [Mass/Vol] 148 mg/dL Normal <=200 [facility] Comment on above: Order Comment: Order Date: 10/17/23Order Info: [id number] - CMPOrder Info: [id number] - LIPID Result Comment: Chol esterol level, Desirable <200 mg/dL Borderline high cholesterol 200-239 mg/dL High cholesterol >=240 mg/dL Recommendations of the NCEP Adult Treatment Panel for the following risk-cutoff thresholds for the [place] population. Performed By: #### L 500.4050, L100.0100, L500.4100 ####[facility] [address] [place], [address] Cholesterol in HDL [Mass/Vol] 51 mg/dL Normal [facility] Comment on above: Order Comment: Order Date: 10/17/23Order Info: [id number] - CMPOrder Info: [id number] - LIPID Result Comment: Frances onal Cholesterol Education Program (NCEP) guidelines: <40 mg/dL: Low HDL-cholesterol (major risk factor for CHD) >= 60 mg/dL: High HDL-cholesterol (negative risk factor for CHD) HDL-cholesterol is affected by a number of factors, e.g. smoking, exercise, hormones, sex and age. Performed By: #### L 500.4050, L100.0100, L500.4100 ####[facility] [address] [place], [address] Cholesterol in LDL [Mass/Vol] 84 mg/dL Normal [facility] Comment on above: Order Comment: Order Date: 10/17/23Order Info: [id number] - CMPOrder Info: [id number] - LIPID Result Comment: Bord ozxdmf=709-491 mg/dL Higher Kdmk=463 mg/dL or greater Performed By: #### L 500.4050, L100.0100, L500.4100 ####[facility] [address] [place], [address] Cholesterol in VLDL [Mass/Vol] 14 mg/dL Normal 5-40 [facility] Comment on above: Order Comment: Order Date: 10/17/23Order Info: [id number] - CMPOrder Info: [id number] - LIPID Performed By: #### L 500.4050, L100.0100, L500.4100 ####[facility] [address] [place], [address] Triglyceride [Mass/Vol] 68 mg/dL Normal [facility] Comment on above: Order Comment: Order Date: 10/17/23Order Info: [id number] - CMPOrder Info: [id number] - LIPID Result Comment: The drugs N-Acetylcysteine and Metamizole may falsely depress this assay. Normal range: <150 mg/dL Borderline High: 150-199 mg/dL High: 200-499 mg/dL Very High: >500 mg/dL Performed By: #### L 500.4050, L100.0100, L500.4100 ####[facility] [address] [place], [address] Lymphocytes Auto (Unsp spec) [#/Vol]Ordered By: Bubba Solorzano on 05-22-2024 Lymphocytes (Bld) [#/Vol] 2.32 10*3/uL 0.83-4.51 [facility] Lymphocytes/100 WBC Auto (Un sp spec)Ordered By: Bubba Solorzano on 05-22-2024 Lymphocytes/100 WBC (Bld) 33.6 % 19-41 [facility] MCV (mean corpuscular volume ) determinationOrdered By: Bubba Solorzano on 05-22-2024 MCV (RBC) [Entitic vol] 82.3 fL 81-99 [facility] Mean corpuscular hemoglobin (MCH) determinationOrdered By: Bubba Solorzano on 05-22-2024 MCH (RBC) [Entitic mass] 27.2 pg 27.0-32.0 [facility] Mean corpuscular hemoglobin concentration (MCHC) determinationOrdered By: Bubba Solorzano on 05-22-2024 MCHC (RBC) [Mass/Vol] 33.0 g/dL 32-36 [facility] Mean platelet volume determi nationOrdered By: Bubba Solorzano on 05-22-2024 Platelet mean volume (Bld) [Entitic vol] 11.7 fL 6.2-12.0 [facility] Monocyte percentageOrdered B y: Bubba Solorzano on 05-22-2024 Monocytes/100 WBC (Bld) 7.0 % 0-10 [facility] Neutrophil percentageOrdered By: Bubba Solorzano on 05-22-2024 Neutrophils/100 WBC (Bld) 54.6 % 47-70 [facility] Nucleated red blood cell per centageOrdered By: Bubba Solorzano on 05-22-2024 Nucleated RBC/100 WBC (Bld) [Ratio] 0 % 0-5 [facility] Platelet countOrdered By: Simran Solorzano on 05-22-2024 Platelets (Bld) [#/Vol] 224 10*3/uL 150-450 [facility] RBC Auto (Bld) [#/Vol]Ordere d By: Bubba Solorzano on 05-22-2024 RBC (Bld) [#/Vol] 5.04 10*6/uL 4.2-5.4 [facility] Screening total cholesterol/ high density lipoprotein (HDL) cholesterol ratioOrdered By: Bubba Solorzano on 05-22-2024 Cholesterol.total/Choles terol in HDL [Mass ratio] 2.91 {ratio} [facility] Serum creatinine measurement (mass/volume)Ordered By: Bubba Solorzano on 05-22-2024 Creatinine [Mass/Vol] 0.72 mg/dL 0.70-1.20 [facility] Serum globulin measurementOr dered By: Bubba Solorzano on 05-22-2024 Globulin (S) [Mass/Vol] 3.3 g/dL 2.2-4.2 [facility] Serum glucose measurement (m ass/volume)Ordered By: Bubba Solorzano on 05-22-2024 Glucose [Mass/Vol] 98 mg/dL 70-99 [facility] Serum or plasma alanine zhou otransferase (ALT) measurementOrdered By: Bubba Solorzano on 05-22-2024 ALT [Catalytic activity/Vol] 26 U/L <35 [facility] Serum or plasma albumin beatrice urement (mass/volume)Ordered By: Bubba Solorzano on 05-22-2024 Albumin [Mass/Vol] 4.1 g/dL 3.5-5.0 [facility] Serum or plasma albumin/glob ulin mass ratioOrdered By: Bubba Solorzano on 05-22-2024 Albumin/Globulin [Mass ratio] 1.2 {ratio} 0.9-2.4 [facility] Serum or plasma alkaline nunu sphatase measurementOrdered By: Bubba Solorzano on 05-22-2024 ALP [Catalytic activity/Vol] 114 U/L High 35-104 [facility] Serum or plasma anion gap de termination (moles/volume)Ordered By: Bubba Solorzano on 05-22-2024 Anion gap [Moles/Vol] 11 mmol/L 5-15 [facility] Serum or plasma calcium beatrice urement (mass/volume)Ordered By: Bubba Solorzano on 05-22-2024 Calcium [Mass/Vol] 9.3 mg/dL 7.6-11.0 [facility] Serum or plasma cholesterol in HDL measurement (mass/volume)Ordered By: Bubba Solorzano on 05-22-2024 Cholesterol in HDL [Mass/Vol] 51 mg/dL >40 [facility] Comment on above: National Cholesterol Education Program (NCEP) guidelines:<40 mg/dL: Low HDL-cholesterol (major risk factor for CHD)>= 60 mg/dL: High HDL-cholesterol (negative risk factor for CHD)HDL-cholesterol is affected by a number of factors, e.g. smoking, exercise, hormones, sex and age. Serum or plasma cholesterol measurement (mass/volume)Ordered By: Bubba Solorzano on 05-22-2024 Cholesterol [Mass/Vol] 148 mg/dL <201 [facility] Comment on above: Cholesterol level, D esirable <200 mg/dLBorderline high cholesterol 200-239 mg/dLHigh cholesterol >=240 mg/dLRecommendations of the NCEP Adult Treatment Panel for the following risk-cutoff thresholds for the [place] population. Serum or plasma potassium me asurementOrdered By: Bubba Solorzano on 05-22-2024 Potassium [Moles/Vol] 4.0 mmol/L 3.3-5.1 [facility] Serum or plasma sodium measu rement (moles/volume)Ordered By: Bubba Solorzano on 05-22-2024 Sodium [Moles/Vol] 142 mmol/L 133-145 [facility] Serum or plasma urea nitroge n measurement (mass/volume)Ordered By: Bubba Solorzano on 05-22-2024 Urea nitrogen [Mass/Vol] 11 mg/dL 4-19 [facility] Total proteinOrdered By: Antonino Solorzano on 05-22-2024 Protein [Mass/Vol] 7.5 g/dL 5.9-8.4 [facility] Triglycerides measurementOrd ered By: Bubba Solorzano on 05-22-2024 Triglyceride [Mass/Vol] 68 mg/dL <199 [facility] Comment on above: The drugs N-Acetylcy steine and Metamizole may falsely depress this assay. Normal range: <150 mg/dLBorderline High: 150-199 mg/dLHigh: 200-499 mg/dLVery High: >500 mg/dL White blood cell (WBC) count Ordered By: Bubba Solorzano on 05-22-2024 WBC (Bld) [#/Vol] 6.9 10*3/uL 4.4-11.0 [facility] Operative Reporton 4 Operative Report [facility] Medical Records Department [address] [place] [address] Operative Report 12/05/23 1234 MR#: [id number] Acct: [id number] Name: JOHANNA NOBLE Rep #: [id number] : 1965 58 From: Nori Maki MD [...] and sent in formalin for pathology. The Bard dual ultra coil clip was then deployed [...] MD; Dr. Nori Maki MD Signed Normal [facility] Surgery Specimen Level Soheila 12-05-2023 Surgery Specimen Level IV Patient Age/Sex Location Account Attending Physician JOHANNA NOBLE 58/F OPUS [id number] Dr. Nori Maki MD Specimen: [id number] Received: 12/05/23 Status: RETA Sanchez Num: [id number] Spec Type: BREAST BX Subm Dr: Dr. [...] without atypia. Negative for malignancy. See comment. Waqas 12/08/2023 COMMENT Correlation with clinical, radiologic findings [...] totally submitted in one cassette. 12/05/2023 TC:1 CPT:27606 Patient Age/Sex Location Account Attending Physician JOHANNA NOBLE 58/F CHECO [id number] Dr. Nori Maki MD Signed (signature on file) Dr. Chaim Toribio MD 12/08/23 1026 Normal [facility] Comment on above: Performed By: #### P SUIV #### [facility] [address] [place], [address] US Breast Biopsy 1st Lesiono n 12-05-2023 US Breast Biopsy 1st Lesion [facility] Services [address] [place], [place] [address] US Breast Biopsy 1st Lesion MR#: [id number] Acct: [id number] Name: JOHANNA NOBLE Rep #: [id number] : 1965 F 58 From: Gualberto brunner MD PCP: Dr. Bubba Solorzano MD Status: [facility] Study: US Breast Biopsy 1st Lesion Date of Exam: 11/22 06/14 Exam# [id number] Ordering Dr: Clementina Arnold P A-Robert [id number] INDICATION: Ultrasound of the left breast. EXAMINATION: [...] Signed: Gualberto Chin MD at 12:06 EDT , CC: BEAR Arnold; Dr. Bubba Solorzano MD Services Engineer: Signed Normal [facility] Surgery Visit Reporton 11-30 Surgery Visit Report [facility] [address] [place] [address] OFFICE VISIT Date of Service: 12/01/23 MR#: [id number] Acct: [id number] Name: JOHANNA NBOLE Rep #: [id number] : 1965 Provider: Dr. Nori sharif MD Age/Sex: 58/F Location: [facility] Status: Signed Intake Vital Signs 05/23/21 14:30 [...] cooperative, healthy appearing and no acute distress HENNH Head: normal to inspection Chest Other: Breast [...] Status: Acut (more content not included)... Normal [facility] Breast Limited Unilateralon 11-26-2023 Breast Limited Unilateral [facility] [address] [place] [address] Breast Limited Unilateral MR#: [id number] Acct: [id number] Name: JOHANNA NOBLE Rep #: [id number] : 1965 F 58 From: Gualberto brunner MD PCP: Dr. Bubba Solorzano MD Status: REG CLI Study: Breast Limited Unilateral Date of Exam: Exam# [id number] Ordering Dr: Bubba Solorzano MD [id number] STUDY: ULTRASOUND BREAST - LEFT REASON FOR [...] Signed: Gualberto Chin MD at 13:07 EDT , CC: Dr. Bubba Solorzano MD Services Engineer: Signed Normal [facility] Absolute lymphocyte countOrd ered By: Bubab Solorzano on 05-31-2023 Lymphocytes Auto (Unsp spec) [#/Vol] 1.86 10*3/uL 0.83-4.51 [facility] Automated lymphocyte count a s percentage of total leukocytesOrdered By: Bubba Solorzano on 05-31-2023 Lymphocytes/100 WBC Auto (Unsp spec) 33.2 % 19-41 [facility] Basophil percentageOrdered B y: Bubba Solorzano on 05-31-2023 Basophils/100 WBC (Bld) 0.9 % 0-1 [facility] Bilirubin [Mass/Vol] 0.40 mg/dL 0.20-1.00 [facility] Comment on above: For patients on eltr ombopag therapy, use of Dimension [place] TBIL is not recommended. Chloride [Moles/Vol] 109 mmol/L 98-107 [facility] Cholesterol [Mass/Vol] 159 mg/dL <200 [facility] Comment on above: <200 mg/dL Desirable 200-240 mg/dL Borderline >240 mg/dL High Risk Eosinophils/100 WBC (Bld) 2.5 % 0-5 [facility] Glucose [Mass/Vol] 104 mg/dL 74-106 [facility] Comment on above: Fasting Glucose resu lt from 100 to 125 mg/dL suggests IMPAIRED HOMEOSTASIS per A.D.A. criteria. Hemoglobin (Bld) [Mass/Vol] 13.6 g/dL 12.0-15.0 [facility] Monocytes/100 WBC (Bld) 7.5 % 0-10 [facility] Neutrophils (Bld) [#/Vol] 3.1 10*3/uL 2.0-7.7 [facility] Neutrophils/100 WBC (Bld) 55.5 % 47-70 [facility] Potassium [Moles/Vol] 3.7 mmol/L 3.5-5.1 [facility] Protein [Mass/Vol] 7.6 g/dL 6.4-8.2 [facility] Sodium [Moles/Vol] 141 mmol/L 136-145 [facility] Triglyceride [Mass/Vol] 91 mg/dL <199 [facility] Comment on above: The drugs N-Acetylcy steine and Metamizole may falsely depress this assay.Serum Triglycerides Reference Interval Normal <150 mg/dL Borderline high 150 - 199 mg/dL High 200 - 499 mg/dL Very High > or = 500 mg/dL WBC (Bld) [#/Vol] 5.6 10*3/uL 4.4-11.0 [facility] Determination of erythrocyte mean corpuscular volume (MCV)Ordered By: Bubba Solorzano on 05-31-2023 MCV (RBC) [Entitic vol] 81.6 fL 81-99 [facility] Erythrocyte distribution wid th ratioOrdered By: Bubba Solorzano on 05-31-2023 Erythrocyte distribution width (RBC) [Ratio] 12.7 % 11.6-14.6 [facility] Erythrocyte distribution wid th standard deviationOrdered By: Bubba Solorzano on 05-31-2023 Erythrocyte distribution width (RBC) [Entitic vol] 37.8 fL 35.1-43.9 [facility] Hematocrit Auto (Bld) [Volum e fraction]Ordered By: Bubba Solorzano on 05-31-2023 Hematocrit (Bld) [Volume fraction] 41.2 % 37-47 [facility] Immature granulocytes/100 WB C Auto (Bld)Ordered By: Bubba Solorzano on 05-31-2023 Immature granulocytes/100 WBC (Bld) 0.400 % 0.0-0.9 [facility] Comment on above: IG% - Immature Granu locytes (promyelocytes, myelocytes and metamyelocytes) > 1% indicates that a LEFT SHIFT is Present. Laboratory - Chemistry and C hemistry - challengeOrdered By: Bubba Solorzano on 05-31-2023 Albumin/Globulin [Mass ratio] 0.9 {ratio} 0.9-2.4 [facility] ALP [Catalytic activity/Vol] 105 U/L 45-117 [facility] ALT [Catalytic activity/Vol] 33 U/L 13-56 [facility] Cholesterol in HDL [Mass/Vol] 47 mg/dL >40 [facility] Comment on above: The drugs N-Acetylcy steine and Metamizole may falsely depress this assay. Reference Range HDL <40 mg/dL Low HDL Cholesterol HDL >or= 60 mg/dL High HDL Cholesterol Cholesterol in LDL [Mass/Vol] 94 mg/dL 0-130 [facility] CO2 [Moles/Vol] 28.0 mmol/L 21.0-32.0 [facility] Globulin (S) [Mass/Vol] 4.0 g/dL 2.2-4.2 [facility] Urea nitrogen/Creatinine [Mass ratio] 17.9 mg/mg 10-20 [facility] Laboratory - Hematology and Cell countsOrdered By: Bubba Solorzano on 05-31-2023 MCH (RBC) [Entitic mass] 26.9 pg 27.0-32.0 [facility] MCHC (RBC) [Mass/Vol] 33.0 g/dL 32-36 [facility] Nucleated RBC/100 WBC (Bld) [Ratio] 0 % 0-5 [facility] Platelet mean volume (Bld) [Entitic vol] 11.6 fL 6.2-12.0 [facility] Platelets (Bld) [#/Vol] 214 10*3/uL 150-450 [facility] No Panel InformationOrdered By: Bubba Solorzano on 05-31-2023 Estimated GFR (MDRD) Amer 98 mL/min >60 [facility] Comment on above: GFR Calc Estimated GFR (MDRD) Non-Af Amer 81 mL/min >60 [facility] Comment on above: Non- GFR Calc VLDL Cholesterol 18 mg/dL 5-40 [facility] RBC Auto (Bld) [#/Vol]Ordere d By: Bubba Solorzano on 05-31-2023 RBC (Bld) [#/Vol] 5.05 10*6/uL 4.2-5.4 [facility] Serum or plasma calcium beatrice urement (mass/volume)Ordered By: Bubba Solorzano on 05-31-2023 Calcium [Mass/Vol] 9.1 mg/dL 8.5-10.1 [facility] Serum or plasma creatinine m easurement (mass/volume)Ordered By: Bubba Solorzano on 05-31-2023 Creatinine [Mass/Vol] 0.78 mg/dL 0.55-1.02 [facility] Comment on above: The validity of the calculated GFR & GFRAA in patients over 70 years has not been determined. Clinical correlation is essential. Serum or plasma urea nitroge n measurement (mass/volume)Ordered By: Bubba Solorzano on 05-31-2023 Urea nitrogen [Mass/Vol] 14 mg/dL 7-18 [facility] Thin prep Papanicolaou smear with manual screeningOrdered By: Bubba Solorzano on 05-31-2023 Thin prep Papanicolaou smear with manual screening 3.6 g/dL 3.2-5.0 [facility] Thin prep Papanicolaou smear with manual screening 23 U/L 15-37 [facility] Thin prep Papanicolaou smear with manual screening 4 5-15 [facility] No Panel InformationOrdered By: Jeremiah Saxena on 03-04-2023 CA 19-9 Antigen 25 U/mL 0-35 [facility] Comment on above: [employer] El ectrochemiluminescence Immunoassay(ECLIA)Values obtained with different assay methods or kits cannotbe used interchangeably. Results cannot be interpreted asabsolute evidence of the presence or absence of malignantdisease.Performed at: [facility] [id number] Director: Jeremiah Palacios PhD, Phone: [phone] Serum or plasma carcinoembry onic antigen measurement (mass/volume)Ordered By: Jeremiah Saxena on 03-04-2023 Carcinoembryonic Ag [Mass/Vol] 1.5 ng/mL 0.0-4.7 [facility] Comment on above: Nonsmokers <3.9 Smok ers <5.6[employer] Electrochemiluminescence Immunoassay(ECLIA)Values obtained with different assay methods or kitscannot be used interchangeably. Results cannot beinterpreted as absolute evidence of the presence orabsence of malignant disease. Absolute lymphocyte countOrd ered By: Bubba Solorzano on 01-29-2023 Lymphocytes Auto (Unsp spec) [#/Vol] 2.85 10*3/uL 0.83-4.51 [facility] Basophil percentageOrdered B y: Bubba Solorzano on 01-29-2023 Basophils/100 WBC (Bld) 0.7 % 0-1 [facility] Bilirubin [Mass/Vol] 0.50 mg/dL 0.20-1.00 [facility] Comment on above: For patients on eltr ombopag therapy, use of Dimension [place] TBIL is not recommended. Chloride [Moles/Vol] 104 mmol/L 98-107 [facility] Cholesterol [Mass/Vol] 142 mg/dL <200 [facility] Comment on above: <200 mg/dL Desirable 200-240 mg/dL Borderline >240 mg/dL High Risk Eosinophils/100 WBC (Bld) 2.4 % 0-5 [facility] Glucose [Mass/Vol] 79 mg/dL 74-106 [facility] Neutrophils (Bld) [#/Vol] 4.0 10*3/uL 2.0-7.7 [facility] Neutrophils/100 WBC (Bld) 52.4 % 47-70 [facility] Potassium [Moles/Vol] 3.7 mmol/L 3.5-5.1 [facility] Protein [Mass/Vol] 8.0 g/dL 6.4-8.2 [facility] Sodium [Moles/Vol] 139 mmol/L 136-145 [facility] Triglyceride [Mass/Vol] 105 mg/dL <199 [facility] Comment on above: The drugs N-Acetylcy steine and Metamizole may falsely depress this assay.Serum Triglycerides Reference Interval Normal <150 mg/dL Borderline high 150 - 199 mg/dL High 200 - 499 mg/dL Very High > or = 500 mg/dL WBC (Bld) [#/Vol] 7.6 10*3/uL 4.4-11.0 [facility] Blood erythrocytes count (nu mber/volume)Ordered By: Bubba Solorzano on 01-29-2023 RBC (Bld) [#/Vol] 4.84 10*6/uL 4.2-5.4 [facility] Blood hemoglobin measurement (mass/volume)Ordered By: Bubba Solorzano on 01-29-2023 Hemoglobin (Bld) [Mass/Vol] 12.6 g/dL 12.0-15.0 [facility] Blood lymphocytes/100 leukoc ytesOrdered By: Bubba Solorzano on 01-29-2023 Lymphocytes/100 WBC (Bld) 37.6 % 19-41 [facility] Blood monocytes/100 leukocyt esOrdered By: Bubba Solorzano on 01-29-2023 Monocytes/100 WBC (Bld) 6.6 % 0-10 [facility] Blood platelet mean volumeOr dered By: Bubba Solorzano on 01-29-2023 Platelet mean volume (Bld) [Entitic vol] 12.2 fL 6.2-12.0 [facility] Determination of erythrocyte mean corpuscular volume (MCV)Ordered By: Bubba Solorzano on 01-29-2023 MCV (RBC) [Entitic vol] 83.5 fL 81-99 [facility] Hematocrit Auto (Bld) [Volum e fraction]Ordered By: Bubba Solorzano on 01-29-2023 Hematocrit (Bld) [Volume fraction] 40.4 % 37-47 [facility] Laboratory - Chemistry and C hemistry - challengeOrdered By: Bubba Solorzano on 01-29-2023 ALP [Catalytic activity/Vol] 98 U/L 45-117 [facility] ALT [Catalytic activity/Vol] 36 U/L 13-56 [facility] CO2 [Moles/Vol] 27.0 mmol/L 21.0-32.0 [facility] Globulin (S) [Mass/Vol] 4.2 g/dL 2.2-4.2 [facility] Urea nitrogen/Creatinine [Mass ratio] 12.4 mg/mg 10-20 [facility] - Hematology and Cell countsOrdered By: Bubba Solorzano on 01-29-2023 Erythrocyte distribution width (RBC) [Entitic vol] 38.8 fL 35.1-43.9 [facility] Erythrocyte distribution width (RBC) [Ratio] 12.7 % 11.6-14.6 [facility] Immature granulocytes/100 WBC (Bld) 0.300 % 0.0-0.9 [facility] Comment on above: IG% - Immature Granu locytes (promyelocytes, myelocytes and metamyelocytes) > 1% indicates that a LEFT SHIFT is Present. MCH (RBC) [Entitic mass] 26.0 pg 27.0-32.0 [facility] Nucleated RBC/100 WBC (Bld) [Ratio] 0 % 0-5 [facility] MCHC Auto (RBC) [Mass/Vol]Or dered By: Bubba Solorzano on 01-29-2023 MCHC (RBC) [Mass/Vol] 31.2 g/dL 32-36 [facility] No Panel InformationOrdered By: Bubba Solorzano on 01-29-2023 Estimated GFR (MDRD) Amer 85 mL/min >60 [facility] Comment on above: GFR Calc Estimated GFR (MDRD) Non-Af Amer 70 mL/min >60 [facility] Comment on above: Non- GFR Calc Platelets bldOrdered By: Antonino Solorzano on 01-29-2023 Platelets (Bld) [#/Vol] 229 10*3/uL 150-450 [facility] Serum or plasma albumin beatrice urement (mass/volume)Ordered By: Bubba Solorzano on 01-29-2023 Albumin [Mass/Vol] 3.8 g/dL 3.2-5.0 [facility] Serum or plasma albumin/glob ulin mass ratioOrdered By: Bubba Solorzano on 01-29-2023 Albumin/Globulin [Mass ratio] 0.9 {ratio} 0.9-2.4 [facility] Serum or plasma calcium beatrice urement (mass/volume)Ordered By: Bubba Solorzano on 01-29-2023 Calcium [Mass/Vol] 9.3 mg/dL 8.5-10.1 [facility] Serum or plasma cholesterol in HDL measurement (mass/volume)Ordered By: Bubba Solorzano on 01-29-2023 Cholesterol in HDL [Mass/Vol] 42 mg/dL >40 [facility] Comment on above: The drugs N-Acetylcy steine and Metamizole may falsely depress this assay. Reference Range HDL <40 mg/dL Low HDL Cholesterol HDL >or= 60 mg/dL High HDL Cholesterol Serum or plasma cholesterol in VLDL measurement (mass/volume)Ordered By: Bubba Solorzano on 01-29-2023 Cholesterol in VLDL [Mass/Vol] 21 mg/dL 5-40 [facility] Serum or plasma creatinine m easurement (mass/volume)Ordered By: Bubba Solorzano on 01-29-2023 Creatinine [Mass/Vol] 0.89 mg/dL 0.55-1.02 [facility] Comment on above: The validity of the calculated GFR & GFRAA in patients over 70 years has not been determined. Clinical correlation is essential. Serum or plasma low density lipoprotein (LDL) cholesterol measurement (mass/volume)Ordered By: Bubba Solorzano on 01-29-2023 Cholesterol in LDL [Mass/Vol] 79 mg/dL 0-130 [facility] Serum or plasma urea nitroge n measurement (mass/volume)Ordered By: Bubba Solorzano on 01-29-2023 Urea nitrogen [Mass/Vol] 11 mg/dL 7-18 [facility] Thin prep Papanicolaou smear with manual screeningOrdered By: Bubba Solorzano on 01-29-2023 Thin prep Papanicolaou smear with manual screening 29 U/L 15-37 [facility] Thin prep Papanicolaou smear with manual screening 8 5-15 [facility] Basophil percentageOrdered B y: Bubba Solorzano on 01-02-2023 Bilirubin [Mass/Vol] 0.30 mg/dL 0.20-1.00 [facility] Comment on above: For patients on eltr ombopag therapy, use of Dimension [place] TBIL is not recommended. Protein [Mass/Vol] 8.4 g/dL 6.4-8.2 [facility] Direct bilirubinOrdered By: Bubba Solorzano on 01-02-2023 Bilirubin.direct [Mass/Vol] 0.08 mg/dL 0.00-0.30 [facility] - Chemistry and C hemistry - challengeOrdered By: Bubba Solorzano on 01-02-2023 Albumin [Mass/Vol] 3.6 g/dL 2.9-4.4 [facility] ALP [Catalytic activity/Vol] 104 U/L 45-117 [facility] ALT [Catalytic activity/Vol] 37 U/L 13-56 [facility] Globulin (S) [Mass/Vol] 4.5 g/dL 2.2-4.2 [facility] No Panel InformationOrdered By: Bubba Solorzano on 01-02-2023 Addendum Document Comment . [facility] Comment on above: The SPE pattern appe ars unremarkable. Evidence ofmonoclonal protein is not apparent.Performed at: - [facility] [id number] Director: Jeremiah Palacios PhD, Phone: [phone] Putxq-7-Afxdenczb 0.2 g/dL 0.0-0.4 [facility] Tdnsc-7-Xnntsvgiz 0.9 g/dL 0.4-1.0 [facility] Gamma Globulins 1.6 g/dL 0.4-1.8 [facility] Protein Fractions Elph [Inte rp]Ordered By: Bubba Solorzano on 01-02-2023 Protein Fractions [Interp] Comment . [facility] Comment on above: Protein electrophore sis scan will follow via computer,mail, or inventory audit clerk delivery. Serum albumin to globulin ra lexy by protein electrophoresisOrdered By: Bubba Solorzano on 01-02-2023 Albumin/Globulin Elph [Mass ratio] 0.9 0.7-1.7 [facility] Serum globulin measurement ( mass/volume)Ordered By: Bubba Solorzano on 01-02-2023 Globulin (S) [Mass/Vol] 3.8 g/dL 2.2-3.9 [facility] Serum or plasma albumin beatrice urement (mass/volume)Ordered By: Bubba Solorzano on 01-02-2023 Albumin [Mass/Vol] 3.9 g/dL 3.2-5.0 [facility] Serum or plasma beta globuli n measurement by electrophoresis (mass/volume)Ordered By: Bubba Solorzano on 01-02-2023 Beta globulin Elph [Mass/Vol] 1.2 g/dL 0.7-1.3 [facility] Thin prep Papanicolaou smear with manual screeningOrdered By: Bubba Solorzano on 01-02-2023 Thin prep Papanicolaou smear with manual screening 19 U/L 15-37 [facility] Thin prep Papanicolaou smear with manual screening See comment [facility] Comment on above: NOT OBSERVED Total protein bloodOrdered B y: Bubba Solorzano on 01-02-2023 Protein [Mass/Vol] 7.4 g/dL 6.0-8.5 [facility] Absolute lymphocyte countOrd ered By: Bubba Solorzano on 10-04-2022 Lymphocytes Auto (Unsp spec) [#/Vol] 2.70 10*3/uL 0.83-4.51 [facility] Basophil percentageOrdered B y: Bubba Solorzano on 10-04-2022 Basophil percentage 0-5 SEEN /hpf 0-5 [facility] Basophils/100 WBC (Bld) 0.6 % 0-1 [facility] Bilirubin [Mass/Vol] 0.30 mg/dL 0.20-1.00 [facility] Comment on above: For patients on eltr ombopag therapy, use of Dimension [place] TBIL is not recommended. Chloride [Moles/Vol] 107 mmol/L 98-107 [facility] Cholesterol [Mass/Vol] 265 mg/dL <200 [facility] Comment on above: <200 mg/dL Desirable 200-240 mg/dL Borderline >240 mg/dL High Risk Eosinophils/100 WBC (Bld) 2.8 % 0-5 [facility] Glucose [Mass/Vol] 76 mg/dL 74-106 [facility] Neutrophils (Bld) [#/Vol] 4.3 10*3/uL 2.0-7.7 [facility] Neutrophils/100 WBC (Bld) 55.2 % 47-70 [facility] Potassium [Moles/Vol] 3.8 mmol/L 3.5-5.1 [facility] Protein [Mass/Vol] 7.9 g/dL 6.4-8.2 [facility] Sodium [Moles/Vol] 139 mmol/L 136-145 [facility] Triglyceride [Mass/Vol] 185 mg/dL <199 [facility] Comment on above: The drugs N-Acetylcy steine and Metamizole may falsely depress this assay.Serum Triglycerides Reference Interval Normal <150 mg/dL Borderline high 150 - 199 mg/dL High 200 - 499 mg/dL Very High > or = 500 mg/dL WBC (Bld) [#/Vol] 7.8 10*3/uL 4.4-11.0 [facility] Bilirubin Test strip Ql (U)O rdered By: Bubba Solorzano on 10-04-2022 Bilirubin Ql (U) Negative Negative [facility] Blood erythrocytes count (nu mber/volume)Ordered By: Bubba Solorzano on 10-04-2022 RBC (Bld) [#/Vol] 5.02 10*6/uL 4.2-5.4 [facility] Blood hemoglobin measurement (mass/volume)Ordered By: Bubba Solorzano on 10-04-2022 Hemoglobin (Bld) [Mass/Vol] 13.4 g/dL 12.0-15.0 [facility] Blood lymphocytes/100 leukoc ytesOrdered By: Bubba Solorzano on 10-04-2022 Lymphocytes/100 WBC (Bld) 34.6 % 19-41 [facility] Blood monocytes/100 leukocyt esOrdered By: Bubba Solorzano on 10-04-2022 Monocytes/100 WBC (Bld) 6.5 % 0-10 [facility] Blood platelet mean volumeOr dered By: Bubba Solorzano on 10-04-2022 Platelet mean volume (Bld) [Entitic vol] 12.2 fL 6.2-12.0 [facility] Determination of erythrocyte mean corpuscular volume (MCV)Ordered By: Bubba Solorzano on 10-04-2022 MCV (RBC) [Entitic vol] 82.3 fL 81-99 [facility] Hematocrit Auto (Bld) [Volum e fraction]Ordered By: Bubba Solorzano on 10-04-2022 Hematocrit (Bld) [Volume fraction] 41.3 % 37-47 [facility] Ketones Test strip Ql (U)Ord ered By: Bubba Solorzano on 10-04-2022 Ketones Ql (U) Negative Negative [facility] Laboratory - Chemistry and C hemistry - challengeOrdered By: Bubba Solorzano on 10-04-2022 ALP [Catalytic activity/Vol] 108 U/L 45-117 [facility] ALT [Catalytic activity/Vol] 30 U/L 13-56 [facility] CO2 [Moles/Vol] 26.0 mmol/L 21.0-32.0 [facility] Globulin (S) [Mass/Vol] 4.2 g/dL 2.2-4.2 [facility] Urea nitrogen/Creatinine [Mass ratio] 16.1 mg/mg 10-20 [facility] Laboratory - Hematology and Cell countsOrdered By: Bubba Solorzano on 10-04-2022 Erythrocyte distribution width (RBC) [Entitic vol] 38.6 fL 35.1-43.9 [facility] Erythrocyte distribution width (RBC) [Ratio] 13.0 % 11.6-14.6 [facility] Immature granulocytes/100 WBC (Bld) 0.300 % 0.0-0.9 [facility] Comment on above: IG% - Immature Granu locytes (promyelocytes, myelocytes and metamyelocytes) > 1% indicates that a LEFT SHIFT is Present. MCH (RBC) [Entitic mass] 26.7 pg 27.0-32.0 [facility] Nucleated RBC/100 WBC (Bld) [Ratio] 0 % 0-5 [facility] MCHC Auto (RBC) [Mass/Vol]Or dered By: Bubba Solorzano on 10-04-2022 MCHC (RBC) [Mass/Vol] 32.4 g/dL 32-36 [facility] Mucus LM Ql (Urine sed)Order ed By: Bubba Solorzano on 10-04-2022 Mucus Ql (Urine sed) 0 SEEN /hpf [facility] Nitrite Test strip Ql (U)Ord ered By: Bubba Solorzano on 10-04-2022 Nitrite Ql (U) Negative Negative [facility] No Panel InformationOrdered By: Bubba Solorzano on 10-04-2022 Estimated GFR (MDRD) Amer 75 mL/min >60 [facility] Comment on above: GFR Calc Estimated GFR (MDRD) Non-Af Amer 62 mL/min >60 [facility] Comment on above: Non- GFR Calc Parathyroid Hormone (Intact) 58.7 pg/mL 18.4-80.1 [facility] Thyroid Stimulating Hormone (TSH) 1.85 uIU/mL 0.358-3.74 [facility] Platelets bldOrdered By: Antonino Solorzano on 10-04-2022 Platelets (Bld) [#/Vol] 232 10*3/uL 150-450 [facility] Protein Test strip Ql (U)Ord ered By: Bubba Solorzano on 10-04-2022 Protein Ql (U) Negative Negative [facility] Serum or plasma albumin beatrice urement (mass/volume)Ordered By: Bubba Solorzano on 10-04-2022 Albumin [Mass/Vol] 3.7 g/dL 3.2-5.0 [facility] Serum or plasma albumin/glob ulin mass ratioOrdered By: Bubba Solorzano on 10-04-2022 Albumin/Globulin [Mass ratio] 0.9 {ratio} 0.9-2.4 [facility] Serum or plasma calcium beatrice urement (mass/volume)Ordered By: Bubba Solorzano on 10-04-2022 Calcium [Mass/Vol] 9.2 mg/dL 8.5-10.1 [facility] Serum or plasma cholesterol in HDL measurement (mass/volume)Ordered By: Bubba Solorzano on 10-04-2022 Cholesterol in HDL [Mass/Vol] 37 mg/dL >40 [facility] Comment on above: The drugs N-Acetylcy steine and Metamizole may falsely depress this assay. Reference Range HDL <40 mg/dL Low HDL Cholesterol HDL >or= 60 mg/dL High HDL Cholesterol Serum or plasma cholesterol in VLDL measurement (mass/volume)Ordered By: Bubba Solorzano on 10-04-2022 Cholesterol in VLDL [Mass/Vol] 37 mg/dL 5-40 [facility] Serum or plasma creatinine m easurement (mass/volume)Ordered By: Bubba Solorzano on 10-04-2022 Creatinine [Mass/Vol] 0.99 mg/dL 0.55-1.02 [facility] Comment on above: The validity of the calculated GFR & GFRAA in patients over 70 years has not been determined. Clinical correlation is essential. Serum or plasma low density lipoprotein (LDL) cholesterol measurement (mass/volume)Ordered By: Bubba Solorzano on 10-04-2022 Cholesterol in LDL [Mass/Vol] 191 mg/dL 0-130 [facility] Serum or plasma urea nitroge n measurement (mass/volume)Ordered By: Bubba Solorzano on 10-04-2022 Urea nitrogen [Mass/Vol] 16 mg/dL 7-18 [facility] Squamous epithelial cells de tection in urine sediment by light microscopyOrdered By: Bubba Solorzano on 10-04-2022 Epithelial cells.squamous LM Ql (Urine sed) 0 SEEN /hpf 5-10 [facility] Thin prep Papanicolaou smear with manual screeningOrdered By: Bubba Solorzano on 10-04-2022 Thin prep Papanicolaou smear with manual screening 24 U/L 15-37 [facility] Thin prep Papanicolaou smear with manual screening 6 5-15 [facility] Urine blood detectionOrdered By: Bubba Solorzano on 10-04-2022 RBC Ql (U) 25 /ul Negative [facility] RBC Ql (U) 0 SEEN /hpf 0-5 [facility] Urine clarityOrdered By: Antonino Solorzano on 10-04-2022 Clarity (U) Clear Clear [facility] Urine color determinationOrd ered By: Bubba Solorzano on 10-04-2022 Color (U) Yellow Yellow [facility] Urine glucose detectionOrder ed By: Bubba Solorzano on 10-04-2022 Glucose Ql (U) Normal mg/dl Normal [facility] Urine leukocyte esterase det ection by dipstickOrdered By: Bubba Solorzano on 10-04-2022 Leukocyte esterase Test strip Ql (U) 100 /ul Negative [facility] Urine pHOrdered By: Bubba kanpp on 10-04-2022 pH (U) 5.0 [pH] 5.0 - 8.0 [facility] Urine sediment bacteria coun t by microscopy (number/high power field)Ordered By: Bubba Solorzano on 10-04-2022 Bacteria LM.HPF (Urine sed) [#/Area] 0 /[HPF] None Seen [facility] Urine specific gravity measu rementOrdered By: Bubba Solorzano on 10-04-2022 Specific gravity (U) [Rel density] 1.010 1.002-1.03 0 [facility] Urobilinogen Auto test strip Ql (U)Ordered By: Bubba Solorzano on 10-04-2022 Urobilinogen Ql (U) Normal mg/dl Normal [facility] Office Visiton 03-04-2022 Follow-up visit [id number] Lito Noble 1965 F Date Provider Department Center 03/04/2022 [id number] [facility] URO None Family History Problem Relation [...] Sister Neg Hx Cousin Other Level of Service:85346 [place] POSTOP FOLLOW UP VISIT RELATED TO ORIGINAL PX Reason for Visit and Comments: Follow-up [581290] - Post op procedure bladder sling Normal [facility] Progress Noteon 03-04-2022 Progress Note Post-op check [...] -notify office with new or worsening symptoms Normal [facility] Office Visiton 02-20-2022 Follow-up visit [id number] Lito Noble 1965 F Date Provider Department Center 02/20/2022 [id number] [facility]ATK[facility] URO None Family History Problem Relation [...] Sister Neg Hx Cousin Other Level of Service:45727 [place] POSTOP FOLLOW UP VISIT RELATED TO ORIGINAL PX Reason for Visit and Comments: Follow-up [121720] - Post-op.Retropubic midurethral sling (polypropylene mesh, bottom up technique) and cystoscopy on 01/15/22 [facility] Progress Noteon 02-20-2022 Progress Note Director Of Sports Performance by Mon [facility] Office Visiton 01-31-2022 Follow-up visit [id number] Lito Noble 1965 F Date Provider Department Center 01/31/2022 Eliza-BELEN KHALIL [facility] ANIMAL GENETICIST None Family History Problem Relation Age of [...] Sister Neg Hx Cousin Other Level of Service:01347 [place] POSTOP FOLLOW UP VISIT RELATED TO ORIGINAL PX Reason for Visit and Comments: Post-op Visit [559] [facility] Progress Noteon 01-31-2022 Progress Note @LOGOIMAGE@ Chief [...] above noted plan. Follow up with primary ANIMAL GENETICIST for yearly well woman's exams. [facility] 36on 01-22-2022 36 Spoke with pt and e states her lap sites look good. She has no redness, no fever, no drainage and no foul odor. Her surgical glue is coming off. Pt to call office with any questions or concerns. [facility] 36 Left message for pt to call back. Lap BSO 01/15/22. Normal [facility] Medical Cytologyon 10-25-202 2 Medical Cytology [facility] [id number] DEPARTMENT OF PATHOLOGY AND [facility] LABORATORY MEDICINE [address] [facility] [place] [address] FINAL MEDICAL CYTOLOGY REPORT NAME: JOHANNA NOBLE : 1965 56 Y F BILLING NO.: [id number] LOCATION: [facility] PACU OUTPT 1PAC PROCEDURE 01/15/2022 60 DATE: [...] characteristics determined by the clinical laboratories of [facility]. They have not been cleared by the [...] negativity on decalcified specimens. Case reviewed at [facility] [address] [place] [address]. DEPARTMENT OF PATHOLOGY AND LABORATORY MEDICINE [place], [place] [address] [email or web address] Normal [facility] Op Noteon 01-15-2022 Op Note Pre-operative Diagno [...] turned over to urogynecology for bladder surgery. [facility] Op Note Operative Note Department of Urogynecology [...] technique) and cystoscopy Surgeon: Wil Watkins DO Input Output Clerk(s): Dr. Kaur Anesthesia: general Findings: Cystoscopy: Global [...] discharge. Wil Watkins DO 01/15/2022, 2:09 PM [facility] CT Abdomen/Pelvis w/ Contras ton 11-23-2021 CT Abdomen/Pelvis w/ Contrast Patient Name: JOHANNA NOBLE Computed Tomography ACCESSION EXAM DATE/TIME PROCEDURE ORDERING PROVIDER [id number] 11/23/2021 14:[address]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 End: 01-15-2022 ambulatory RJ BARTON [facility] Start: 01-15-2022 End: 01-15-2022 Subsequent hospital visit by physician Luis Fernando Webster MD Work Phone: [facility] General Surgery Comment on above: Post-op pain (Primar y Dx) Start: 01-11-2022 ambulatory UNKNOWN PROVIDER [facility] Start: 01-11-2022 Encounter for other preprocedural examination Luis Fernando Webster [facility] Start: 01-11-2022 End: 01-11-2022 Patient encounter status Luis Fernando Webster MD Work Phone: [facility] Pre-Admit Testing Start: 01-11-2022 End: 01-11-2022 Subsequent hospital visit by physician Luis Fernando Webster MD Work Phone: [facility] Pre-Admit Testing Comment on above: Pre-op testing (Prim constance Dx) Start: 11-23-2021 End: 11-23-2021 Subsequent hospital visit by physician Rj Barton DO Work Phone: [facility] CT Comment on above: Abdominal mass, unsp ecified abdominal location Start: 11-03-2021 End: 11-03-2021 Subsequent hospital visit by physician Rj Barton DO Work Phone: [facility] Laboratory Comment on above: Elevated liver enzym es Start: 09-22-2021 End: 09-22-2021 Patient encounter status Rj Barton DO Work Phone: [facility] Start: 09-22-2021 End: 09-22-2021 Subsequent hospital visit by physician Rj Barton DO Work Phone: [facility] Laboratory Comment on above: Hypercholesterolemia ; Adult general medical exam Start: 06-09-2021 End: 06-09-2021 Subsequent hospital visit by physician Marychuy Witt NP Work Phone: [facility] Laboratory Comment on above: Hypercholesterolemia Start: 01-27-2021 [...] by physician Rj Barton Work Phone: [facility] Comment on above: Right carotid bruit Start: 06-24-2020 End: 06-24-2020 Subsequent hospital visit by physician Rj Barton Work Phone: [facility] Comment on above: Adult general medica l exam; Fatigue, unspecified type Procedures Date Procedure Procedure Detail Performing Clinician Start: 11-12-2024 CT of chest without contrast Dr. Bubba Solorzano MD Work Phone: Start: 03-04-2023 CT of chest without contrast [...] Work Phone: Start: 09-22-2021 Lipid panel Rj E Fra radha DO Work Phone: Start: 06-09-2021 Lipid panel Marychuy Martin ie [employer] Work Phone: Start: 06-09-2021 Transferase aspartat e amino ast sgot Marychuy Ayala [employer] Work Phone: Start: 01-27-2021 Lipid panel Rj fergusono DO Work Phone: Start: 01-27-2021 Transferase aspartat e amino ast sgot Rj Nelsono DO Work Phone: Start: 09-18-2020 Lipid panel Rj fergusono DO Work Phone: Start: 09-18-2020 Transferase aspartat e amino ast sgot Rj Nelsono DO Work Phone: Start: 08-11-2020 Us breast uni real t ellie with image limited Rj Barton DO Work Phone: Start: 08-11-2020 Diagnostic mammograp hy computer-aided detcj bi Rj Nelsono DO Work Phone: Start: 08-11-2020 MG CANCER RISK SURVEY P bernardo Barton DO Work Phone: Start: 06-24-2020 Assay of thyroid sti mulating hormone tsh Rj Barton Work Phone: Start: 06-24-2020 Assay of thyroxine total Rj Barton Work Phone: Start: 06-24-2020 Assay of triiodothyr onine t3 total tt3 Rj Barton Work Phone: Start: 06-24-2020 Blood count complete auto&auto difrntl wbc Rj Barton Work Phone: Start: 06-24-2020 Glucose quantitative blood xcpt reagent strip Rj Nelsonmadalyn Work Phone: Start: 06-24-2020 Lipid panel Rj [...] General Surgery Luis Fernando Webster MD [address] [place] [address] Wil Watkins DO [address] [place] [address] [facility] Start: 11-29-2021 End: 11-29-2021 Patient encounter procedure 11/29/2021 Office Visit Family Medicine Rj Barton DO [address] [place] [address] [facility] Start: 11-22-2021 Influenza vaccination Flu vaccine (# 1) [facility] Start: 11-03-2021 COVID-19 Vaccine (5 - Booster for Moderna series) COVID-19 Vaccine (5 - Booster for Moderna series) [facility] Start: 11-01-2021 End: 11-01-2021 Patient encounter procedure 11/01/2021 Office Visit [facility] Medicine Rj Barton DO [address] [place] [address] [facility] Start: 10-22-2021 Influenza vaccination Flu vaccine (# 1) [facility] Start: 10-19-2021 End: 10-19-2021 Patient encounter procedure 10/19/2021 Appointment Radiology Rj Barton DO [address] [place] [address] [facility] Start: 09-29-2021 Diabetes screen Diabetes screen [facility] Start: 09-18-2021 Lipid panel Lipid screen [facility] Work Phone: Start: 06-24-2021 Lipid panel Lipid screen [facility] Work Phone: Start: 06-20-2021 Depression Screen Depression Screen [facility] Start: 02-08-2021 Influenza vaccination Flu vaccine (# 1) [facility] Comment on above: Postponed from 11/22 (Ill Today) Start: 11-22-2020 Influenza vaccination Flu vacc ine (Season Ended) [facility] Work Phone: Start: 09-29-2020 Screening for malign ant neoplasm of breast Breast cancer screen [facility] Work Phone: Start: 07-18-2020 End: 07-18-2020 Office Visit 07/18/2020 Office Visit [facility] Medicine Rj Barton DO [address] [place] [address] [phone] [facility] Start: 06-30-2020 End: 06-30-2020 Appointment 06/30/2020 Appointment Vascular [facility] Start: 10-06-2018 Screening for malign ant neoplasm of colon [facility] Start: 11-04-2017 Screening for malign ant neoplasm of lung Low dose CT lung screening [facility] Start: 2017 Screening for malign ant neoplasm of lung Low dose CT lung screening [facility] Start: 2017 Shingles Vaccine (1 of 2) Shingles Vaccine (1 of 2) [facility] Start: 2012 Screening for malign ant neoplasm of colon [facility] Start: 1986 DTaP/Tdap/Td vaccine (1 - Tdap) DTaP/Tdap/Td vaccine (1 - Tdap) [facility] Start: 1983 COVID-19 Vaccine (1) COVID-19 Vaccin e (1) [facility] Work Phone: Start: 1982 HIV screening HIV screen [facility] Start: 1979 COVID-19 Vaccine (1) COVID-19 Vaccin e (1) [facility] Work Phone: Start: 1967 Hepatitis C screening Hepatitis C sc reen [facility] Blood glucose - POCT Blood gluco se - POCT Point of Care Testing STAT As Needed until discontinued starting 01/15/2022 [facility] Work Phone: Comment on above: As Needed until disc ontinued starting 01/15/2022 End: 01-15-2022 Creatinine [Mass/volume] in Serum or Plasma Creatinine, serum Lab STAT One Time for 1 Occurrences starting 01/15/2022 until 01/15/2022 [facility] Work Phone: Comment on above: One Time for 1 Occur rences starting 01/15/2022 until 01/15/2022 End: 11-23-2021 CT Abdomen and Pelvis W contrast IV [facility] Work Phone: Comment on above: Once for 1 Occurrenc es starting 11/23/2021 until 11/23/2021 End: 09-22-2021 Glucose [Mass/volume] in Serum or Plasma Glucose Lab Routine Adult general medical exam 1 Occurrences starting 09/22/2021 until 09/22/2021 [facility] Work Phone: Comment on above: 1 Occurrences starti ng 09/22/2021 until 09/22/2021 End: 01-15-2022 INITIATE PACU OXYGEN THERAPY PROTOCOL Initiate PACU Oxygen Therapy Protocol Respiratory Care Routine Continuous until discontinued starting 01/15/2022 [facility] Work Phone: Comment on above: Continuous until dis continued starting 01/15/2022 End: 01-15-2022 Intermittent pulse oximetry Pulse Oximetry Spot Check Respiratory Care Routine One Time for 1 Occurrences starting 01/15/2022 until 01/15/2022 [facility] Work Phone: Comment on above: One Time for 1 Occur rences starting 01/15/2022 until 01/15/2022 Nasal Cannula Oxygen Nasal Cannu la Oxygen Respiratory Care Routine As Needed until discontinued starting 01/15/2022 [facility] Work Phone: Comment on above: As Needed until disc ontinued starting 01/15/2022 Nasal Cannula Oxygen Nasal Cannu la Oxygen Respiratory Care Routine As Needed until discontinued starting 01/15/2022 [employer] [facility] Work Phone: Comment on above: As Needed until disc ontinued starting 01/15/2022 Nonrebreather mask oxygen Nonrebreather mask oxygen Respiratory Care Routine As Needed until discontinued starting 01/15/2022 [employer] [facility] Work Phone: Comment on above: As Needed until disc ontinued starting 01/15/2022 Nonrebreather mask oxygen Nonrebreather mask oxygen Respiratory Care Routine As Needed until discontinued starting 01/15/2022 [employer] [facility] Work Phone: Comment on above: As Needed until disc ontinued starting 01/15/2022 Oxygen therapy [[facility] Data Set] Initiate Oxygen Therapy Protocol Respiratory Care Routine As Needed until discontinued starting 01/15/2022 [employer] Work Phone: Comment on above: As Needed until disc ontinued starting 01/15/2022 End: 01-15-2022 Potassium w/ Reflex to Magnesium Potassium w/ Reflex to Magnesium Lab Routine One Time for 1 Occurrences starting 01/15/2022 until 01/15/2022 [employer] Work Phone: Comment on above: One Time for 1 Occur rences starting 01/15/2022 until 01/15/2022 End: 01-15-2022 , urine POCT , urine POCT Point of Care Testing Routine One Time for 1 Occurrences starting 01/15/2022 until 01/15/2022 [facility] Work Phone: Comment on above: One Time for 1 Occur rences starting 01/15/2022 until 01/15/2022 End: 01-15-2022 Protime-INR Protime-INR Lab STAT One Time for 1 Occurrences starting 01/15/2022 until 01/15/2022 [facility] Work Phone: Comment on above: One Time for 1 Occur rences starting 01/15/2022 until 01/15/2022 Spirometry panel Incentive ting metry Respiratory Care Routine Q1H PRN until discontinued starting 01/15/2022 [facility] Work Phone: Comment on above: Q1H PRN until discon tinued starting 01/15/2022 End: 06-30-2020 VL DUP CAROTID BILATERAL VL DUP CAROTID BILATERAL Imaging Routine Right carotid bruit 1 Occurrences starting 06/30/2020 until 06/30/2020 [facility] Work Phone: Comment on above: 1 Occurrences starti ng 06/30/2020 until 06/30/2020 VL DUP CAROTID BILATERAL VL DUP CAROTID BILATERAL Imaging Routine Right carotid bruit 06/30/2020 3:19 PM EDT [facility] Work Phone: Immunizations Immunization Date Immunization Notes Care Provider Fa stefano 09-08-2021 COVID-19, MODERNA BL UE border, Primary or Immunocompromised, (age 12y+), IM, 100 mcg/0.5mL Rj Barton DO Work Phone: [facility] 04-14-2021 COVID-19, Moderna, Primary or Immunocompromised, PF, 100mcg/0.5mL Marychuy Tokie [employer] Work Phone: [facility] Work Phone: 09-05-2020 COVID-19, Moderna, Primary or Immunocompromised, PF, 100mcg/0.5mL Marychuy Tokie [employer] Work Phone: [facility] Work Phone: 08-11-2020 COVID-19, Moderna, Primary or Immunocompromised, PF, 100mcg/0.5mL Marychuy Tokie [employer] Work Phone: [facility] Payers Date Payer Category Payer Self-pay [id number] 2019 Unknown [id number] 1967 Unknown [id number] 2.16. [id number] 1967 Unknown [id number] 2.16. [id number] Unknown Unknown [id number] 2.16.8 [id number] Unknown [id number] 2.16.8 [id number] Unknown [id number] 2.16.8 [id number] Unknown [id number] 2.16.8 [id number] Unknown [id number] 2.16.8 [id number] Unknown [id number] 2.16.8 [id number] Unknown [id number] 2.16.8 [id number] Unknown [id number] 2.16.8 [id number] Social History Date Type Detail Facility Start: 06-22-2020 End: 12-01-2023 Tobacco smoking status [facility] smoker [facility] Start: 12-03-1990 End: 08-16-2016 History of tobacco use Current smoker [employer] Phone: Start: 12-03-1990 End: 08-16-2016 History of tobacco use Cigarette Smoker [employer] Phone: Start: 06-22-2020 End: 01-15-2022 Cigarettes smoked current (pack per day) - Reported [employer] Phone: Start: 06-22-2020 End: 12-05-2021 Tobacco use and exposure Never used [employer] Work Phone: Start: 06-22-2020 End: 01-15-2022 Alcohol intake Current drinker of alcohol (finding) [employer] Work Phone: Start: 09-07-2018 History SDOH Alcohol Frequency 2 [employer] Work Phone: Start: 09-07-2018 End: 05-25-2021 History SDOH Alcohol Std Drinks 1 [employer] Work Phone: Start: 09-07-2018 History SDOH [employer] Phone 5 [employer] Work Phone: Start: 09-07-2018 History SDOH [employer] 98 [employer] Work Phone: Start: 09-07-2018 History SDOH [employer] Living 3 [employer] Work Phone: Start: 02-04-2017 Alcohol Comment rarely [employer] Work Phone: Start: 1965 Sex Assigned At Not on file S [facility] Work Phone: Start: 05-25-2021 History SDOH Financial 4 [employer] Work Phone: Start: 01-01-2022 End: 01-15-2022 Exposure to SARS-CoV-2 (event) Not sure [employer] Work Phone: Start: 05-23-2021 End: 05-23-2021 Tobacco smoking status NHIS Unknown if ever smoked [facility] Start: 1965 Sex Assigned At Female W [facility] Start: 06-03-2024 Sex Female (finding) [facility] Goals Date Patient Goal Desired Activity /State Comment on above: Formatting of this n ote might be different from the original. Use all my vacation for vacation Barriers: time constraints Plan for overcoming my barriers: going to just do it Confidence: 10/31 Anticipated Goal Completion Date: 06/2019 Clinical Notes 01-11-2022 to 11-15-2024 Danni Galindo RN - 01/15/2022 3:46 PM EDTDischarge InstructionsAttachmentsNatasha Daily RN - 01/11/2022 9:45 AM Manuel Daily RN - 01/11/2022 9:00 AM EDTDischarge Instructions Note Date & Type Note Facility 11-15-2024 Radiology Diagnostic study note [facility] Imaging Services [address] [place], [place] [id number] Chest without Contrast MR#: [id number] Acct: [id number] Name: JOHANNA NOBLE Rep #: [id number] : 1965 F 59 From: Shashank Chin MD PCP: Dr. Bubba Solorzano MD Status: RE G CLI Study:Chest without Contrast Date of Exam: 11/12/24 Exam# [id number] Ordering Dr: Bubba Solorzano MD PROCEDURE: CHEST WITHOUT CONTRAST 11/12/2024 REASON FOR EXAM: NODULE Follow-up of pulmonary nodule. TECHNIQUE: Chest CT without contrast. Coronal and Sagittal reconstruction series were provided. One or more dose reduction techniques were used (e.g., Automated exposure control, adjustment of the mA and/or kV according to patient size, use of iterative reconstruction technique RADIATION DOSE SUMMARY: CTDlvol: 17.08 mGy DLP: 644.56 mGycm COMPARISON: Prior study dated November 21, 2023. FINDINGS: Hardware: None Lymph nodes: Small benign-appearing mediastinal lymph nodes. Small benign-appearing bilateral axillary lymph nodes. Heart and Vasculature: The heart is not enlarged. Atherosclerotic calcifications of the thoracic aorta. Thoracic aorta and pulmonary arteries have normal contours; noncontrast technique limits evaluation. Coronary Artery Calcifications: Present Lungs and Airways: Stable linear scarring at the lung apices. Stable appearanceof a small cluster of tiny nodules in the anterior aspect of the right lower lobe adjacent to the right major fissure. Stable 8.7 mm nodule in the anterior aspect of the right lower lobe as seen on axial image number 91. Pleura: No pleural effusion. Upper Abdomen: Small sliding hiatal hernia. Bones: Degenerative changes of the thoracic spine. CT/Chest without Contrast IMPRESSION: Coronary artery calcification (CAC) is is present Stable examination. 12 month follow-up recommended. Reading Location: [id number] CC: Dr. Bubba Solorzano MD ~ Services Engineer: Signed [facility] 01-15-2022 History of Presen t illness Narrative Voiding trial started. 300 mL instilled of normal saline. Catheter discontinued. Patient tolerated procedure well. documented in this encounter [facility] Work Phone: 01-15-2022 [facility] Discharg e instructions Nicolle Carolina DO - 01/15/2022 1:17 PM EDT Please follow your post operative care instructions given to you by your Managed Services Sales Consultant Oncologist's office at your pre operative visit. Please call the office with questions or concerns and be sure to follow up at your scheduled post operative visit. The following attachments cannot be sent through Care Everywhere.Urethral Sling Surgery: Post-op ([place])documented in this encounter [facility] Work Phone: 01-11-2022 History of Presen t illness Narrative Anesthesia here to talk with her JOHANNA IS OK TALKING WITH ANESTHESIA IN [facility]. HER CONCERN IS WITH THE ANESTHESIA AND FEELS OK TALKING TO THEM AT THAT TIME. documented in this encounter [facility] Work Phone: 01-11-2022 [facility] Discharg e instructions Natasha Daily RN - 01/11/2022 9:31 AM EDT You may use the free amusement machine mechanic parking at the main entrance on [address] [place] [address], or the free parking in the [facility] parking deck You may use the parking in the Main deck. Take the level one bridge to the H building and follow the signs for same day surgery. Check in at the desk. You may use the amusement machine mechanic parking located at the main entrance on [address] [place] [address] and take the H elevator to the [...] your scheduled surgery time. Please bring your [facility] Surgical folder and medication list with you day of surgery. We encourage you to write down any questions you may have for the surgeon, anesthesiologist, or other members of the surgical team and bring it with you the day of surgery. Please bring photo ID and insurance information. The following attachments cannot be sent through Care Everywhere.Oophorectomy: Laparoscopic: Pre-op ([place])Oophorectomy: Laparoscopic: Post-op ([place])Cystoscopy: Post-op ([place])Urethral Sling Surgery: Pre-op ([place])Urethral Sling Surgery: Post-op ([place])documented in this encounter [facility] Work Phone: Evaluation [...] Work Phone: Evaluation noteNo assessment information available [facility] Work Phone: Reason for referral (narrative)No reason for referral information availableHigh[facility] Work Phone: Assessments Diagnosis Adult general medical exam Unspecified general medical examination Fatigue, unspecified type Diagnosis Right carotid bruit Other symptoms involving cardiovascular system Advance Directives No Advanced Directives Records FoundDocuments on File Type Date Recorded Patient Solutions Specialist Expl anation ACP-Advance Directive 02/07/2017 2:49 PM Latest Code Status on File Code Status Date Activated Date Inactivated Comments Full Code 02/06/2017 8:25 AM 02/06/2017 6:24 PM Documents on File Type Date Recorded Patient Solutions Specialist Expl anation ACP-Advance Directive ACP-Advance Directive 02/07/2017 2:49 PM ACP-Power of Director Of Operations Documents on File Type Date Recorded Patient Solutions Specialist Expl anation ACP-Advance Directive ACP-Advance Directive 02/07/2017 2:49 PM ACP-Power of Director Of Operations Latest Code Status on File Code Status Date Activated Date Inactivated Comments Full Code 02/06/2017 8:25 AM 02/06/2017 6:24 PM Documents on File Type Date Recorded Patient Solutions Specialist Expl anation ACP-Advance Directive ACP-Power of Director Of Operations ACP-Advance Directive 02/07/2017 2:49 PM Documents on File Type Date Recorded Patient Solutions Specialist Expl anation ACP-Advance Directive ACP-Power of Director Of Operations ACP-Advance Directive 02/07/2017 2:49 PM Latest Code Status on File Code Status Date Activated Date Inactivated Comments Full Code 01/15/2022 10:55 AM Full Code 02/06/2017 8:25 AM 02/06/2017 6:24 PM Advance Directive Response Recorded Date/ Time Living Will No May 23, 2021 3:40pm Power of Director Of Operations No May 23 3:40pm Advance Directive Response Recorded Date/ Time Living Will No May 23, 2021 2:40pm Power of Director Of Operations No May 23 2:40pm Reason for Referral Status Reason Specialty Diagnoses / Procedures Referred By Contact Referred To Contact [facility] Diagnoses Right carotid bruit Procedures VL DUP CAROTID BILATERAL Rj Barton DO [address] [phone] Status Reason Specialty Diagnoses / Procedures Referre d By Contact Referred To Contact [facility] Diagnoses Breast density Procedures US Breast Limited Left Rj Barton DO [address] [place] [address] Summary Purpose Family History No Family History Records FoundNo Family History Records FoundNo Family History Records FoundNo Family History Records FoundNo Family History Records Found Chief Complaint and Reason for Visit Chief Complaint SCREENING Chief Complaint SCREENING ABNORMAL FINDING OF LUNG FIELD Chief Complaint SCREENING ABNORMAL FINDING OF LUNG FIELD HEPATOMEGALY Chief Complaint LUNG NODULE, HX 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 [address] PCP - General 08/31/14 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 [address] PCP - General 08/31/14 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 [address] PCP - General 08/31/14 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 [address] PCP - General 08/31/14 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 [address] PCP - General 08/31/14 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 [address] PCP - General 08/31/14 Team Status: Active [...] May 22, 2024 End: May 22, 2024 Team Status: Active Member Role/Relationship Status Dates Dr. Bubba Solorzano MD Primary Care Provider Active Team Status: Inactive Member Role/Relationship Status Dates Dr. Bubba Solorzano MD Primary Care Provider Active Start: October 23, 2024 End: October 23, 2024 Dr. Bubba Solorzano MD Attending Provider Active Start: October 23, 2024 End: October 23, 2024 Dr. Bubba Solorzano MD Referring Provider Active Start: October 23, 2024 End: October 23, 2024 Team Status: Inactive Member Role/Relationship Status Dates Dr. Bubba Solorzano MD Primary Care Provider Active Start: November 12, 2024 End: November 12, 2024 Dr. Bubba Solorzano MD Attending Provider Active Start: November 12, 2024 End: November 12, 2024 Dr. Bubba Solorzano MD Referring Provider Active Start: November 12, 2024 End: November 12, 2024 INFORMATION SOURCE (unrecogn ized section and content) DATE CREATED AUTHOR 05/23/2021 [facility] DATE CREATED AUTHOR AUTHOR'S ORGANIZ ATION 11/29/2021 [facility] DATE CREATED AUTHOR AUTHOR'S ORGANIZ ATION 01/17/2022 [facility] DATE CREATED AUTHOR AUTHOR'S ORGANIZ ATION 03/15/2022 [facility] DATE CREATED AUTHOR AUTHOR'S ORGANIZ ATION 11/21/2024 [facility] Ordered Prescriptions (unrec ognized section and content) [...] dose, Starting on Fri01/15/22 at 1410, Until Tu01/15/22 at 2359, Pain Severe (7-10)
PHASE II
[...] BE BASED ON THE PRIMARY CLINICAL RECORDS. [employer] provides no warranty or guarantee of the accuracy or completeness of information in this document.
== END | disposition home or self-care (01) ==
PROVIDERS: PCP Family Medicine; Referring Provider Family Medicine; Visit Provider Family Medicine
DX: Z12.31 Encounter for screening mammogram for malignant neoplasm of breast (principal)
CPT/HCPCS: 77067